=== PATIENT | female | born 1970 | race Caucasian/White ===

== ENCOUNTER → 2017-11-09 15:14 | Outpatient (POV) | payer BC, SELFPAY | PROVIDERS: Family Provider Internal Medicine Adolescent Medicine; Visit Provider Physician Assistant | DX: Z00.00 Encounter for general adult medical examination without abnormal findings (principal) ==

== ENCOUNTER 2019-01-21 19:19 | Emergency (ER) | payer BC, SELFPAY ==
[2019-01-21 19:34] VITALS: BP 148/91; PULSE 82; RESP 16; TEMP 36.6; O2SAT 98; BMI 40.2
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
[2019-01-21 20:11] VITALS: BP 148/91; PULSE 82; RESP 16; TEMP 36.6; O2SAT 98
== END 2019-01-21 20:15 | disposition home or self-care (01) ==
PROVIDERS: Emergency Provider Nurse Practitioner Family; PCP Nurse Practitioner Family
DX: T23.201A Burn of second degree of right hand, unspecified site, initial encounter (principal); Z23 Encounter for immunization; F17.210 Nicotine dependence, cigarettes, uncomplicated; X12.XXXA Contact with other hot fluids, initial encounter; Y92.019 Unspecified place in single-family (private) house as the place of occurrence of the external cause
CPT/HCPCS: 90471; 90715; 99201

== ENCOUNTER → 2019-11-22 13:04 | Outpatient (POV) | payer BC, SELFPAY | PROVIDERS: PCP Nurse Practitioner Family; Visit Provider Dermatology | DX: Z00.00 Encounter for general adult medical examination without abnormal findings (principal) ==

== ENCOUNTER → 2019-12-15 09:07 | Outpatient (CLI) | payer BC, SELFPAY ==
--- NOTE | 2019-12-15 09:12 | MM_ITS ---
PROCEDURE: MM DIG SCREENING MAMM BI W/CAD Digital Breast Tomosynthesis Included CLINICAL INDICATION: SCREENING There is no personal or family history of breast cancer. COMPARISON: [facility] DIGITAL MAMM-SCREEN BILATERAL from 06/04/2010 [facility] DIG MAMM-SCREEN GUNNER from 07/29/2016 TECHNIQUE: Standard CC and MLO images and 3D Tomosynthesis was obtained. R2 CAD reviewed. FINDINGS: The breasts are composed primarily of fat with scattered fibroglandular densities throughout each breast. There is a stable benign-appearing nodular density upper-outer quadrant left breast likely a small fibroadenoma. There is no suspicious lesion and no suspicious microcalcifications. IMPRESSION: Fibrofatty parenchyma with no suspicious lesions seen BI-RAD Category: 2 Benign Finding(s) FOLLOW-UP: 1YR 1 Year Follow-up (A letter has been sent to the patient regarding results of the study.) Dictated by: Dr. Raphael Gorman MD 12/16/2019 16:[address] Raphael Gorman MD in [place] 12/16/2019 16:23
== END ==
PROVIDERS: PCP Nurse Practitioner Family; Visit Provider Obstetrics & Gynecology Gynecology
DX: Z12.31 Encounter for screening mammogram for malignant neoplasm of breast (principal)
CPT/HCPCS: 77063; 77067

== ENCOUNTER → 2020-11-15 15:14 | Outpatient (CLI) | payer BC, SELFPAY ==
--- NOTE | 2020-11-15 15:20 | XR_ITS ---
PROCEDURE: XR KNEE RT 3V CLINICAL INDICATION: RT ANTERIOR KNEE PAIN COMPARISON: No exams were available for comparison FINDINGS: There are hunv-er-xjawzshk osteoarthritic changes at the medial compartment with mild osteoarthritis of the lateral compartment and patellofemoral joint. No acute fracture or dislocation. No lytic or blastic change. Other findings:None. IMPRESSION: Osteoarthritis Dictated by: Ilia Cruz MD 11/15/2020 15:44 Ilia Cruz MD in [place] 11/15/2020 15:44
== END ==
PROVIDERS: PCP Nurse Practitioner Family; Visit Provider Nurse Practitioner Family
DX: M25.561 Pain in right knee (principal)
CPT/HCPCS: 73562

== ENCOUNTER → 2023-01-29 08:48 | Outpatient (CLI) | payer BC, SELFPAY ==
[2023-01-29 09:32] LABS: Basophils % 0.6 % (0.1-2.0); Eosinophils # 0.2 K/mm3 (0.0-0.4); Eosinophils % 3.5 % (0.1-12.0); Hematocrit 49.2 % (37.0-47.0); Hemoglobin 15.9 g/dL (12.2-16.2); Lymphocytes # 1.6 K/mm3 (0.7-4.5); Lymphocytes % 25.1 % (10-50); Mean Corpuscular HGB Conc 32.3 g/dL (31.8-35.4); Mean Corpuscular Hemoglobin 31.8 pg (27.0-31.2); Mean Corpuscular Volume 98.5 fl (81-99); Mean Platelet Volume 12.2 fl (7.4-10.4); Monocytes # 0.5 K/mm3 (0.1-1.0); Monocytes % 7.3 % (1.7-9.3); Neutrophils % 63.6 % (37.0-80.0); Platelet Count 91 K/mm3 (142-424); White Blood Count 6.2 K/mm3 (4.8-10.8)
[2023-01-29 09:45] LABS: Alanine Aminotransferase 47 U/L (12-78); Albumin/Globulin Ratio 1.3 (1.1-1.8); Alkaline Phosphatase 88 U/L (38-126); Anion Gap 15.6 mEq/L (5-15); Aspartate Amino Transferase 45 U/L (14-36); Bilirubin,Total 0.9 mg/dl (0.2-1.3); Blood Urea Nitrogen 11 mg/dl (7-17); Calcium 8.9 mg/dl (8.4-10.2); Carbon Dioxide 27 mmol/L (22.0-30.0); Chloride 99 mmol/L (98-107); Chol/HDL Ratio 3.3 (1-3.5); Cholesterol 216 mg/dl (140-200); Estimated Glomerular Filt Rate 58 ml/min (>60); GFR (African American) 70 ML/MIN (>60); Globulin 3.1 g/dL (1.3-3.2); Glucose 99 mg/dl (74-100); HDL Cholesterol 65 mg/dl (40-60); Potassium 4.6 mmoL/L (3.5-5.1); Sodium 137 mmol/L (136-145); Total Protein,Serum 7.1 g/dl (6.3-8.2); Triglycerides 132 mg/dl (30-150); VLDL Cholesterol 26 mg/dL (0-40)
[2023-01-29 09:56] LABS: Direct LDL Cholesterol 124.07 mg/dL (100-129)
[2023-01-29 10:01] LABS: 25-OH Vitamin D, Total 35.7 ng/mL (30-100)
[2023-01-29 10:10] LABS: Hemoglobin A1C 5.4 % (4.0-6.0)
[2023-01-29 10:14] LABS: Thyroid Stimulating Hormone 0.42 uIU/mL (0.465-4.68)
[2023-01-30 12:30] LABS: FSH 44.1 mIU/mL (.); Insulin Level Total 22.9 uIU/mL (2.6-24.9)
== END ==
PROVIDERS: PCP Internal Medicine Adolescent Medicine; Visit Provider Obstetrics & Gynecology Gynecology
DX: Z00.00 Encounter for general adult medical examination without abnormal findings (principal); N95.1 Menopausal and female climacteric states; R53.83 Other fatigue
CPT/HCPCS: 36415; 80053; 80061; 82306; 83001; 83036; 83525; 84443; 85025

== ENCOUNTER → 2023-02-04 16:00 | Outpatient (CLI) | payer BC, SELFPAY ==
--- NOTE | 2023-02-04 11:23 | MM_ITS ---
PROCEDURE INFORMATION: Exam: MG Bilateral Screening 3D Mammography Exam date and time: 02/04/2023 3:59 PM Age: 52 years old Clinical indication: Screening examination TECHNIQUE: Imaging protocol: Bilateral Screening tomosynthesis and 2D mammography including computer-aided detection (CAD) when performed. COMPARISON: 1. MG MM DIG SCREENING MAMM BI W/CAD 12/15/2019 9:29 AM 2. MG [facility] DIG MAMM-SCREEN GUNNER 07/29/2016 8:56 AM FINDINGS: MAMMOGRAPHY: Breast composition: The breasts are almost entirely fatty. Mass: None. Architectural distortion: None. Calcifications: No suspicious calcifications. Asymmetric density: None. Skin thickening: None. Axillary adenopathy: None. IMPRESSION: No mammographic evidence of malignancy. Annual screening is recommended unless otherwise clinically indicated. ASSESSMENT: BI-RADS Category 1: Negative
== END ==
PROVIDERS: PCP Internal Medicine Adolescent Medicine; Visit Provider Obstetrics & Gynecology Gynecology
DX: Z12.31 Encounter for screening mammogram for malignant neoplasm of breast (principal)
CPT/HCPCS: 77063; 77067

== ENCOUNTER 2024-10-25 09:21 | Emergency (ER) | payer BC, SELFPAY ==
[2024-10-25 09:37] VITALS: BP 176/93; PULSE 82; RESP 18; TEMP 37.2; O2SAT 94; BMI 50.8
[2024-10-25 09:48] LABS: UTC Influenza A Antigen Negative (Negative); UTC Influenza B Antigen Negative (Negative); UTC Strep Screen (Rapid) Negative (Negative)
--- NOTE | 2024-10-25 09:54 | ED_ITS ---
Discharge Plan Disposition Patient Disposition: Home, Self-Care Condition: Good Prescriptions Prescriptions: New azithromycin [Zithromax] 250 mg tablet 250 mg PO UD DOSE PK Qty: 6 0RF Rx Instructions: Take two (2) tablets today, then one (1) tablet days #2 thru #5 benzonatate 100 mg capsule 100 mg PO TIDP PRN (Reason: Cough) Qty: 30 0RF No Action hydrocodone-acetaminophen 1 EACH tablet 1 each PO Q6HP PRN (Reason: Moderate Pain) Qty: 12 0RF Referrals Follow up/Referrals: Jose F Cade MD [Primary Care Provider] - See instructions Activity Restrictions/Add. Instructions Additional Instructions/Restrictions: Drink plenty of fluids. Take tylenol or ibuprofen for pain or fever. Take the medications as directed. Follow up with your regular doctor. GO TO THE ER FOR ANY WORSENING SYMPTOMS Clinical Impressions Clinical Impression: Acute bronchitis, Acute viral syndrome Stand Alone Forms Stand Alone Forms: Work/School Release Instructions Patient Instructions: DI for Acute Bronchitis Print Language Print Language: Chinese Discharge ED Provider: Rony Lovelace [facility] General Stated complaint: cough, sore throat Mode of Arrival: Ambulatory Source of Information: Patient Time Seen by Provider: 10/25/24 09:53 Description of Symptoms (Recalled from Triage Doc. by RN): DRY COUGH X 1WEEK HEENT Symptoms (Recalled from RN notes): Yes Resp Symptoms (Recalled from RN notes): Yes Skin Symptoms (Recalled from RN notes): No MS Symptoms (Recalled from RN notes): No Functional Status (Recalled from RN notes): WNL Related Data Previous Rx's ?Medication ?Instructions ?Recorded hydrocodone 5 mg-acetaminophen 325 1 each PO Q6HP PRN Moderate Pain 01/21/ mg tablet #12 tabs azithromycin 250 mg tablet 250 mg PO UD DOSE PK #6 tabs 10/25/24 (Zithromax) benzonatate 100 mg capsule 100 mg PO TIDP PRN Cough #30 caps 10/25/24 Allergies Allergy/AdvReac Type Severity Reaction Status Date / Time codeine Allergy Verified 05/20/18 12:39 Worker's Comp Is this a Worker's Comp case?: No [facility] Disclaimer: The information contained in this section may have been updated after the patient was seen, as this information can be updated by other users. Social History Smoking Status: Current every day smoker tobacco type: cigarettes packs per day: 1 alcohol intake: never current occupational status: employed Travel in the last 8 weeks: None Have you lived/traveled outside US in past 30 days?: No Contact w/someone who lives/traveled outside US past 30 days?: No Exposure to someone with infectious disease in past 14 days?: No Do you have a fever (greater than 100.4 F or 38 C)?: No Have you tested positive for COVID-19: No Exposed to someone with COVID-19 in past 14 days?: No Do you have a sore throat?: Yes Do you have a cough?: Yes Do you have any weakness?: No Do you have any diarrhea?: No Are you experiencing any unusual bleeding?: No Do you have any muscle aches/pain?: No Do you have any abdominal pain?: No Are you experiencing loss of taste or smell?: No ROS Obtained: Yes All systems reviewed & no additional complaints except as documented Constitutional Constitutional: Reports chills and Reports fever(s) Eyes Eyes: Denies eye discharge ENT Ears, Nose, Mouth, and Throat: Reports as per HPI Cardiovascular Cardiovascular: Denies chest pain Respiratory Respiratory: Denies chest congestion and Reports cough Gastrointestinal Gastrointestingal: Reports nausea; Denies abdominal pain, constipation, cramping, diarrhea or vomiting Musculoskeletal Musculoskeletal: Denies arthralgias Integumentary/Breasts Skin/Breast: Denies rash Neurologic Neurologic: Denies paresthesias Physical Exam General General appearance: alert and in no apparent distress Eye Eye exam: Present normal appearance, PERRL and EOMI ENT ENT exam: Present mucous membranes moist and normal external ear exam Expanded ENT Exam External ear exam: Present normal external inspection TM/Canal exam: Bilateral TM: erythema and bulging Nose exam: Absent sinus tenderness Nasal speculum exam: Bilateral: normal Mouth exam: Present normal external inspection; Absent drooling Teeth exam: Present normal inspection Throat exam: Present tonsillar erythema and tonsillomegaly Neck Neck exam: Present normal inspection, full ROM and trachea midline; Absent tenderness, lymphadenopathy or thyromegaly Chest Chest inspection: Present normal inspection and symmetric chest wall rise; Absent tenderness or rash Respiratory Respiratory exam: Present normal lung sounds bilaterally; Absent respiratory distress, wheezes, stridor or accessory muscle use Cardiovascular Cardiovascular exam: Present regular rate, normal rhythm and normal heart sounds Abdominal Exam Abdominal exam: Present soft; Absent distention, tenderness, guarding, rebound or rigidity Extremities Exam Extremities exam: Present normal inspection, full ROM and normal capillary refill; Absent tenderness or calf tenderness Back Exam Back exam: Present normal inspection and full ROM; Absent tenderness Neurological Exam Neurological exam: Present alert and oriented X3 Psychiatric Psychiatric exam: Present normal affect and normal mood Skin Skin exam: Present warm, dry, intact and normal color Lymphatic Lymphatic Findings: no adenopathy Medical Decision Making Medical Records Medical records reviewed: No I reviewed the patient's medical records. Screening: Per USPSTF and CDC recommendations, given the prevalence of disease in our region, it is our hospital?s policy to screen for HIV and viral Hepatitis for all patients aged 18 and over and those with ongoing risk factors. Guillermo Inquiry Pt receiving controlled substance: No Vital Signs: 10/25/24 09:37 Temperature 99.0 F Temperature Source Oral Pulse Rate [Left Radial] 82 Respiratory Rate 18 Blood Pressure [Left Arm] 176/93 H Blood Pressure Mean [Left Arm] 120 02 Sat by Pulse Oximetry 94 L Lab Data Lab Results 10/25/24 09:41: Influenza Type A Ag Negative, Influenza Type B Ag Negative, Strep Scn Rapid Clinic Negative Orders (Tests/Meds): ORDERS Category Date Time Status Strep Screen Confirmation Stat Micro 10/25/24 09:41 Received Medical Decision Narrative: She refused any additional viral testing and x-rays.
[2024-10-25 10:42] VITALS: BP 176/93; PULSE 82; RESP 18; TEMP 37.2
== END 2024-10-25 10:42 | disposition home or self-care (01) ==
PROVIDERS: Emergency Provider Nurse Practitioner Family; PCP Internal Medicine Adolescent Medicine
DX: J20.9 Acute bronchitis, unspecified (principal); B34.9 Viral infection, unspecified
CPT/HCPCS: 87804; 87880; 99213; G0381

== ENCOUNTER 2025-01-13 07:47 | Outpatient (CLI) | payer BC, SELFPAY ==
--- NOTE | 2025-01-13 07:49 | MM_ITS ---
PROCEDURE INFORMATION: Exam: MG Bilateral Screening 3D Mammography Exam date and time: 01/13/2025 8:29 AM Age: 54 years old Clinical indication: Screening examination TECHNIQUE: Imaging protocol: Bilateral Screening tomosynthesis and 2D mammography including computer-aided detection (CAD) when performed. COMPARISON: 1. MG MM DIG SCREENING MAMM BI W/CAD 02/04/2023 3:59 PM 2. MG MM DIG SCREENING MAMM BI W/CAD 12/15/2019 9:29 AM FINDINGS: MAMMOGRAPHY: Breast composition: The breasts are almost entirely fatty. Mass: No suspicious masses. Architectural distortion: None. Calcifications: No suspicious calcifications. Asymmetric density: None. Skin thickening: None. Axillary adenopathy: None. IMPRESSION: No mammographic evidence of malignancy. Annual screening is recommended unless otherwise clinically indicated. ASSESSMENT: BI-RADS Category 1: Negative.
--- NOTE | 2025-01-13 07:49 | CT_ITS ---
FINAL REPORT CLINICAL HISTORY: current smoker 1.5ppd x40 years FINDINGS: Axial images were obtained from the lung apex to the mid abdomen by computed tomography. Low-dose protocol was utilized. CTDl vol(mGy): 2.90 DLP (mGy-cm): 94.82 FINDINGS: There is no axillary adenopathy. There is no hilar or mediastinal adenopathy. The heart size is normal. There is no pericardial or pleural effusion. Limited images of the upper abdomen are unremarkable. Lung window images demonstrate no suspicious infiltrate or nodule. IMPRESSION: Lung RADS category 1. Recommend 12 month follow-up low-dose chest CT. Reviewed, Interpreted and Dictated by Fletcher Pozo MD Transcribed by Ignacia Costa Authenticated and [facility]
== END 2025-01-13 23:59 | disposition home or self-care (01) ==
LOC: RAD 07:48
PROVIDERS: PCP Internal Medicine Adolescent Medicine; Visit Provider Nurse Practitioner Family
DX: Z12.31 Encounter for screening mammogram for malignant neoplasm of breast (principal); Z87.891 Personal history of nicotine dependence
CPT/HCPCS: 71271; 77063; 77067

== ENCOUNTER 2025-07-17 16:42 | Outpatient (CLI) | payer BC, SELFPAY ==
--- OUTSIDE RECORDS SUMMARY | 2024-12-06 04:00 | XMS_ITS ---
Author Organization [facility] Address [address] [place] [address] Care Team Providers Care Oncology Registrar Name Role Phone Mary Toro Primary Care Provider REASON FOR VISIT Labs Encounters Encounter Location Date Provider Diagnosis [facility] [address] [place], [place] [address] 12/06/2024 Mary Toro Plan Of Treatment No Information Progress Notes * Francia PUENTESDOB:1970 (55 yo F)Acc No.[id number]:12/06/2024 LABS Patient: Francia MARTINEZ Danni Provider: DEMARCUS Castano :1970 A ge:54 Y S ex:Female Date:12/06/2024 Address:[address] [id number] Subjective: * Chief Complaints: * 1 . Labs. * Medical History: Objective: * Vitals: Assessment: Plan: * Treatment: * * Electronic signature of Jessica Toro APRN on 07/17/2025 at 04:44 PM EDT Sign off status: Pending * Provider: DEMARCUS Castano Date: 0 12/06/2024 Generated for Printi ng/Faxing/eTransmitting on: 1 04:44 PM EDT
--- OUTSIDE RECORDS SUMMARY | 2024-12-24 17:30 | XMS_ITS ---
Author Organization [facility] Address [address] [place] [address] Care Team Providers Care Grill Attendant Name Role Phone Mary Toro Primary Care Provider Migration, Provider Unavailable Unavailable Allergies Allergen (clinical drug ingredient) Drug/Non Drug Allergy documented on EMR Reaction Allergy Type Onset Date Status codeine Codeine Unknown Drug Allergy Active [facility] VISIT [facility] Encounter Medications Medication SIG (Take, Route, [...] Active Encounters Encounter Location Date [facility] [address] [place] [address] 12/24/2024 Provider Migration Situational mixed anxiety and [...] :1970 A ge:54 Y S ex:Female Date:12/24/2024 Address:[address] [place] [address] [id number] Pcp:Mary Toro Subjective: * Chief Complaints: * [...] Electronic signature of Pipo howard Migration on 07/17/2025 at 04:45 PM EDT Sign off status: Pending * Provider: Rebeca braswell Migration Date: 0 12/24/2024 Generated for Megha macdonald/Jus/Richarditting on: 1 04:45 PM EDT
--- OUTSIDE RECORDS SUMMARY | 2025-07-05 07:15 | XMS_ITS ---
Author Organization [facility] Address [address] [place] [address] Care Team Providers Care Sap Specialist Name Role Phone Mary Toro Primary Care Provider Jose F Cade Unavailable [phone] REASON FOR VISIT feet swelling, other issues Encounters Encounter Location Date Provider Diagnosis [facility] [address] [place], [place] [address] 07/05/2025 Jose F Cade Plan Of Treatment No Information Progress Notes * Francia PUENTESDOB:1970 (55 yo F)Acc No.[id number]:07/05/2025 Progress Notes Patient: Francia MARTINEZ Provider: Tasha Cade MD :1970 A ge:55 Y S ex:Female Date:07/05/2025 Address:[address] [place], [id number] Pcp:Mary Toro Subjective: * Chief Complaints: * 1 . Feet swelling, other issues. * Medical History: Objective: * Vitals: Assessment: Plan: * Treatment: * * Electronic signature of Derrick Cade MD FAAP on 07/17/2025 at 04:45 PM EDT Sign off status: Pending * Provider: Tasha Cade MD Date: 1 Generated for Megha macdonald/Jus/eTransmitting on: 1 04:45 PM EDT
--- OUTSIDE RECORDS SUMMARY | 2025-07-17 16:45 | XMS_ITS | Patient Health Record ---
Author Organization [facility] STEPHANIE Address [address] [place] [address] Care Team Providers Care Die Cast Patternmaker Name Role Phone Mary Toro Primary Care Provider Jose F Cade Unavailable [phone] Migration, Provider Unavailable Unavailable Allergies Allergen (clinical drug ingredient) Drug/Non Drug Allergy documented on EMR Reaction Allergy Type Onset Date Status codeine Codeine Unknown Drug Allergy Active Results Component Value Reference Range Notes CT Scan : Chest, Lung Cancer Screening Reviewed date:01/17/2025 09:14:22 AM Interpretation: Performing Lab: Notes/Report: CT Scan : Chest, Lung Cancer Screening Reviewed date:01/17/2025 09:14:22 AM Interpretation: Performing Lab: Notes/Report: Mammogram: Screening Reviewed date:01/20/2025 10:23:15 AM Interpretation: Performing Lab: Notes/Report: HEPATITIS PANEL, GENERAL (64 62) Reviewed date:12/09/2024 10:47:25 AM Interpretation: Performing Lab:CB, [facility] [address], [place] AkwlDM[address] Anderson Gonzalez Notes/Report: NON-FASTING; NON-FASTING; NON-FASTING; NON-FASTING; NON-FAST FASTING:YES FASTING: YES HEPATITIS A AB, TOTAL REACTIVE NON-REACTIVE For additional information, please refer to http://Mosa Records.MediaWheel/faq/MJA861 (This link is being provided for informational/ educational purposes only.) HEPATITIS B SURFACE ANTIBODY QL NON-REACTIVE NON-REACTIVE HEPATITIS B SURFACE ANTIGEN NON-REACTIVE NON-REACTIVE For additional information, please refer to http://TripIt/faq/PBE296 (This link is being provided for informational/ educational purposes only.) HEPATITIS B CORE AB TOTAL NON-REACTIVE NON-REACTIVE For additional information, please refer to http://TripIt/faq/JOS216 (This link is being provided for informational/ educational purposes only.) HEPATITIS C ANTIBODY NON-REACTIVE NON-REACTIVE HCV antibody was non-reactive. There is no laboratory evidence of HCV infection. In most cases, no further action is required. However, if recent HCV exposure is suspected, a test for HCV RNA (test code 97003) is suggested. For additional information please refer to http://TripIt/faq/FAQ22v 1 (This link is being provided for informational/ educational purposes only.) LIPID PANEL, STANDARD (7600) Reviewed date:12/09/2024 10:47:26 AM Interpretation: Performing Lab:TIAN, [facility] Cabp7214 [facility] HospitalQixzMK[address] Anderson Gonzalez Notes/Report: NON-FASTING; NON-FASTING; NON-FASTING; NON-FASTING; NON-FAST FASTING:YES FASTING: YES CHOLESTEROL, TOTAL 224 <200 mg/dL HDL CHOLESTEROL 66 > OR = 50 mg/dL TRIGLYCERIDES 114 <150 mg/dL LDL-CHOLESTEROL 136 Reference range: <100 Desirable range <100 mg/dL for primary prevention; <70 mg/dL for patients with CHD or diabetic patients with > or = 2 CHD risk factors. LDL-C is now calculated using the Luís-Aries calculation, which is a validated novel method providing better accuracy than the Friedewald equation in the estimation of LDL-C. Luís OH et al. ELENA. 2013;310(19): 3511-9761 (http://Blue Crow Media/faq/FAQ16 4) CHOL/HDLC RATIO 3.4 <5.0 (calc) NON HDL CHOLESTEROL 158 <130 mg/dL (calc) For patients with diabetes plus 1 major ASCVD risk factor, treating to a non-HDL-C goal of <100 mg/dL (LDL-C of <70 mg/dL) is considered a therapeutic option. COMPREHENSIVE METABOLIC PANE Gloria (99387) Reviewed date:12/09/2024 10:47:26 AM Interpretation: Performing Lab:TIAN [employer] Drss4461 [employer]Logixtel [address], [facility] HospitalKpjdFK[address] Anderson Gonzalez Notes/Report: NON-FASTING; NON-FASTING; NON-FASTING; NON-FASTING; NON-FAST FASTING:YES FASTING: YES GLUCOSE 102 65-99 mg/dL Fasting reference interval For someone without known diabetes, a glucose value between 100 and 125 mg/dL is consistent with prediabetes and should be confirmed with a follow-up test. UREA NITROGEN (BUN) 9 7-25 mg/dL CREATININE 1.00 0.50-1.03 mg/dL EGFR 66 > OR = 60 mL/min/1.73m2 BUN/CREATININE RATIO SEE NOTE: 6-22 (calc) Not Reported: BUN and Creatinine are within reference range. SODIUM 138 135-146 mmol/L POTASSIUM 4.5 3.5-5.3 mmol/L CHLORIDE 100 98-110 mmol/L CARBON DIOXIDE 28 20-32 mmol/L CALCIUM 9.1 8.6-10.4 mg/dL PROTEIN, TOTAL 7.6 6.1-8.1 g/dL ALBUMIN 4.0 3.6-5.1 g/dL GLOBULIN 3.6 1.9-3.7 g/dL (calc) ALBUMIN/GLOBULIN RATIO 1.1 1.0-2.5 (calc) BILIRUBIN, TOTAL 0.9 0.2-1.2 mg/dL ALKALINE PHOSPHATASE 81 37-153 U/L AST 56 10-35 U/L ALT 62 6-29 U/L MAGNESIUM (622) Reviewed date:12/09/2024 10:47:26 AM Interpretation: Performing Lab:TIAN [facility] Wabq4454 [address], [employer] EvcwNI[address] Anderson Gonzalez Notes/Report: NON-FASTING; NON-FASTING; NON-FASTING; NON-FASTING; NON-FAST FASTING:YES FASTING: YES MAGNESIUM 2.2 1.5-2.5 mg/dL CREATINE KINASE, TOTAL (374) Reviewed date:12/09/2024 10:47:26 AM Interpretation: Performing Lab:TIAN Abiquoe[address], [place] DcbrSG[address] Anderson Gonzalez Notes/Report: NON-FASTING; NON-FASTING; NON-FASTING; NON-FASTING; NON-FAST FASTING:YES FASTING: YES CREATINE KINASE, TOTAL 77 21-240 U/L CBC (INCLUDES DIFF/PLT) (639 9) Reviewed date:12/09/2024 10:47:26 AM Interpretation: Performing Lab:TIAN [facility] Tdpa7446 [address]t.IO, AGLOGICZlccKZ[address] Anderson Gonzalez Notes/Report: NON-FASTING; NON-FASTING; NON-FASTING; NON-FASTING; NON-FAST FASTING:YES FASTING: YES NON-FASTING; NON-FASTING; NON-FASTING; NON-FASTING; NON-FAST FASTING:YES FASTING: YES WHITE BLOOD CELL COUNT 5.9 3.8-10.8 Thousand/uL RED BLOOD CELL COUNT 4.98 3.80-5.10 Million/uL HEMOGLOBIN 16.8 11.7-15.5 g/dL HEMATOCRIT 51.0 35.0-45.0 % MCV 102.4 80.0-100.0 fL MCH 33.7 27.0-33.0 pg MCHC 32.9 32.0-36.0 g/dL For adults, a slight decrease in the calculated MCHC value (in the range of 30 to 32 g/dL) is most likely not clinically significant; however, it should be interpreted with caution in correlation with other red cell parameters and the patient's clinical condition. RDW 13.6 11.0-15.0 % ABSOLUTE NEUTROPHILS 3705 5289-2368 cells/uL ABSOLUTE LYMPHOCYTES 0576 755-7646 cells/uL ABSOLUTE MONOCYTES 525 200-950 cells/uL ABSOLUTE EOSINOPHILS 201 15-500 cells/uL ABSOLUTE BASOPHILS 59 0-200 cells/uL NEUTROPHILS 62.8 LYMPHOCYTES 23.9 MONOCYTES 8.9 EOSINOPHILS 3.4 BASOPHILS 1.0 PLATELET COUNT TNP TEST(S) NOT PERFORMED: PLATELET COUNT Unable to report due to significant platelet clumping. PLATELET ESTIMATION ADEQUATE Platelet s clumped, appear adequate. HEMOGLOBIN A1c (496) Reviewed date:12/09/2024 10:47:26 AM Interpretation: Performing Lab:TIAN [facility] Cagj[address]659 [address], [place] NihdJX[address] Anderson Gonzalez Notes/Report: NON-FASTING; NON-FASTING; NON-FASTING; NON-FASTING; NON-FAST FASTING:YES FASTING: YES HEMOGLOBIN A1c 5.8 <5.7 % of total Hgb For someone without known diabetes, a hemoglobin [...] A1c for diagnosis of diabetes for children. TSH W/REFLEX TO FT4 (87240) Reviewed date:12/09/2024 10:47:26 AM Interpretation: Performing Lab:TIAN [facility]RelateIQe1355 [employer], [facility] HospitalJaaiNS[address] Anderson Gonzalez Notes/Report: NON-FASTING; NON-FASTING; NON-FASTING; NON-FASTING; NON-FAST FASTING:YES FASTING: YES TSH W/REFLEX TO FT4 2.90 0.40-4.50 mIU/L VITAMIN D,25-OH,TOTAL,IA (17 306) Reviewed date:12/09/2024 10:47:26 AM Interpretation: Performing Lab:TIAN [facility]RelateIQe1355 [facility], [facility] HospitalDdhrNK[address] Anderson Gonzalez Notes/Report: NON-FASTING; NON-FASTING; NON-FASTING; NON-FASTING; NON-FAST FASTING:YES FASTING: YES VITAMIN D,25-OH,TOTAL,IA 26 30-100 ng/mL Vitamin D Status 25-OH Vitamin D: Deficiency: <20 ng/mL Insufficiency: 20 - 29 ng/mL Optimal: > or = 30 ng/mL For 25-OH Vitamin D testing on patients on D2-supplementation and patients for whom quantitation of D2 and D3 fractions is required, the QuestAssureD(TM) 25-OH VIT D, (D2,D3), LC/MS/MS is recommended: order code 30074 (patients >2yrs). See Note 1 Note 1 For additional information, please refer to http://education.Offerpop/faq/ZEQ174 (This link is being provided for informational/ educational purposes only.) TEST AUTHORIZATION Reviewed date:12/08/2024 08:00:55 AM Interpretation: Performing Lab:CB, [facility] Yans8158 [facility] Gianni MontgomeryJzcdBJ[address] Anderson Ozzy Gonzalez Notes/Report: NON-FASTING; NON-FASTING; NON-FASTING; NON-FASTING; NON-FAST FASTING:YES FASTING: YES TEST NAME: HEPATITIS PANEL, GENERAL TEST CODE: 6462SB CLIENT CONTACT: KEREN EATON IOP REPORT ALWAYS MESSAGE SIGNATURE The laboratory testing on this patient was verbally requested or confirmed by the ordering physician or his or her authorized apprenticeship representative after contact with an employee of [employer]. Federal regulations require that we maintain on file written authorization for all laboratory testing. Accordingly we are asking that the ordering physician or his or her authorized apprenticeship representative sign a copy of this report and promptly return it to the client support representative. Signature: COMMENT Please fax this signed form to [phone]. Please do not attempt to return this document by other methods. Documents will not be viewed by a apprenticeship representative. Please do not use this fax number for other service requests. Reason For Referral Reason Mamm, LDCT chest Diagnosis 1 Routine medical exam (Z00.00) Referral Organization [facility] Referring Provider First Name Mary Referring Provider Last Name Muna Referring Provider Speciality Critical access hospital Referred Organization [facility] Referred Address [address] [place] [address], Referred Provider Specialty Diagnostic R adiology General Notes Rosa Malcolm 2024 09:44:59 AM >Faxed to [facility] to schedule with [facility] Referral Priority Routine Referral Appointment Date 12/23/2024 Medications Medication SIG (Take, Route, Fr equency, [...] Immunizations Vaccine Route Administration Date Status Comme estefania Adacel (Tdap) IM Intramuscular 11/05/2010 Administered Flublok IM Intramuscular 06/21/2020 Administered FLUCELVAX IM Intramuscular 07/17/2025 Administered Social History [...] Problem Status W/U Status Risk Notes Problem Tobacco use (160254842) Tobacco use (Z72.0) Active confirmed Problem Mixed anxiety and depressive disorder (878268438) Depression with anxiety (F41.8) Active confirmed Problem Body mass index 40+ - severely obese (060863367) BMI 45.0-49.9, adult (Z68.42) Active confirmed Problem Gastroesophageal reflux disease (428656004) GERD without esophagitis (K21.9) Active confirmed Problem Body mass index 40+ - morbidly obese (999618394) BMI 40.0-44.9, adult (Z68.41) Active confirmed Problem Adjustment disorder with mixed emotional features (47592333) Situational mixed anxiety and depressive disorder (F43.23) Active confirmed Problem Thrombocytopenia (622883574) Thrombocytopenia (D69.6) Active confirmed Problem Insomnia disorder related to another mental disorder (79667489) Psychophysiological insomnia (F51.04) Active confirmed Problem Reactive depression (situational) (09303016) Situational depression (F43.21) Active confirmed Problem Hyperlipidaemia (25789149) Hyperlipidemia, unspecified hyperlipidemia type (E78.5) Active confirmed Problem History of thrombocytopenia (75037871849166) History of thrombocytopenia (Z86.2) Active confirmed Problem Moderate major depression, single episode (13704681) Current moderate episode of major depressive disorder without prior episode (F32.1) Active confirmed Vital Signs Heart Rate 92 /min 07/17/2025 Temperature 98.0 degrees Fahrenheit 07/17/2025 Blood pressure diastolic 84 mm Hg 07/17/2025 Oximetry 97 12/05/2024 Height 62.5 in 07/17/2025 Blood pressure systolic 156 mm Hg 07/17/2025 Weight 299 lbs 07/17/2025 BMI 53.81 kg/m2 07/17/2025 Encounters Encounter Location Date Provider Diagnosis [facility] [address] [facility] [address] [place], [place] [address] 12/06/2024 Mary Toro [facility] [address] [facility] [address] [place], [place] [address] 12/24/2024 Provider Migration Situational mixed anxiety and depressive disorder F43.23 and Tobacco use Z72.0 [facility] [place] [address] [place], [place] [address] 07/17/2025 Jose F Cade Prediabetes R73.03 ; Weight gain R63.5 ; Shortness of breath R06.02 ; Right leg pain M79.604 ; Encounter for immunization Z23 and GERD without esophagitis K21.9 [facility] [address] [facility] [address] [place], [place] [address] 12/05/2024 Mary Muna Routine medical exam Z00.00 ; Visit for screening mammogram Z12.31 ; Personal history of tobacco use Z87.891 ; Colon cancer screening Z12.11 ; Murmur R01.1 ; Situational mixed anxiety and depressive disorder F43.23 ; Tobacco use Z72.0 ; BMI 45.0-49.9, adult Z68.42 ; Weight loss counseling, encounter for Z71.3 ; Myalgia M79.10 and SOB (shortness of breath) R06.02 [facility] [address] [facility] [address] [place], [place] [address] 12/08/2024 Mary Toro Assessments Encounter Date Diagnosis (ICD Code) Assessment Notes Treatment Notes Treatment Clinical Notes Section Notes 12/05/2024 Routine medical exam (ICD-10 - Z00.00) 12/05/2024 Visit for screening mammogram (ICD-10 - Z12.31) 07/17/2025 Weight gain (ICD-10 - R63.5) 07/17/2025 Prediabetes (ICD-10 - R73.03) 07/17/2025 Shortness of breath (ICD-10 - R06.02) 12/05/2024 Personal history of tobacco use (ICD-10 - Z87.891) 12/05/2024 Colon cancer screening (ICD-10 - Z12.11) 07/17/2025 Right leg pain (ICD-10 - M79.604) 07/17/2025 Encounter for immunization (ICD-10 - Z23) 12/05/2024 Murmur (ICD-10 - R01.1) consider echo, cost may be a factor 12/05/2024 Situational mixed anxiety and depressive disorder (ICD-10 - F43.23) 07/17/2025 GERD without esophagitis (ICD-10 - K21.9) 12/24/2024 Situational mixed anxiety and depressive disorder (ICD-10 - F43.23) 12/24/2024 Tobacco use (ICD-10 - Z72.0) 12/05/2024 Tobacco use (ICD-10 - Z72.0) chantix trial as noted, possible s/e and return precautions reviewed 12/05/2024 BMI 45.0-49.9, adult (ICD-10 - Z68.42) Reviewed indication for medication and that dietary changes as well as exercise are recommended as well. Small, frequent meals recommended. Possible side effects and return precautions reviewed. Goal is 4% weight loss over the first 4 months.. _update labs first. 12/05/2024 Weight loss counseling, encounter for (ICD-10 - Z71.3) 12/05/2024 Myalgia (ICD-10 - M79.10) 12/05/2024 SOB (shortness of breath) (ICD-10 - R06.02) labs as noted, consider spirometry during FU Plan Of Treatment Pending Test Test Name Order Date X ray : Tib/Fib, Right 07/17/2025 H-URINE CULTURE 08/04/2011 C-LIPASE 08/26/2017 C-CBC 08/26/2017 C-CMP 11/15/2020 C-CMP 08/26/2017 C-LIPID PANEL 11/15/2020 C-AMYLASE 08/26/2017 C-URINE CULTURE 02/01/2015 X ray : Chest PA and Lateral 07/17/2025 COMPREHENSIVE METABOLIC PANEL (12075) MAGNESIUM (622) 07/17/2025 CBC (INCLUDES DIFF/PLT) (6399) HEMOGLOBIN A1c (496) 07/17/2025 B TYPE NATRIURETIC PEPTIDE (BNP) (49485) 07/17/2025 TESTOSTERONE, [place], [place] ([id number]) 2024 Insurance Providers Payer Name Payer Address Payer Phone Subscriber Number Group Number Insured Name Patient Relationship to Insured Coverage Start Date [facility]age End Date [facility] [address] [place] [address] [id number] Francia Mcdonald Self - patient is the insured Medical (General) History Medical History History ICD Code anxiety Chronic thrombocytopenia, seen by hemato logy 2013 Obesity Tobacco use Surgical History Surgery Date(Month/Year) x 2 Hospitalization History Reason Date(Month/Year) [facility]- Child [address] [facility] Child 1992
--- NOTE | 2025-07-17 16:46 | XR_ITS ---
PROCEDURE INFORMATION: Exam: XR Right Tibia and Fibula Exam date and time: 07/17/2025 4:49 PM Age: 55 years old Clinical indication: Injury or trauma; Fall; Blunt trauma; Lower leg; Right; Additional info: Fall, RT leg pain TECHNIQUE: Imaging protocol: Radiologic exam of the right tibia and fibula. Views: 2 views. COMPARISON: CR XR KNEE RT 3V 11/15/2020 3:21 PM FINDINGS: Bones/joints: There is an acute vertical oblique undisplaced fracture involving the distal fibular diaphysis. Otherwise, there is no evidence of acute fracture or dislocation. Moderate osteoarthritic degenerative changes are present particularly involving the medial femorotibial joint space where there is [id number] joint space narrowing, mild subchondral sclerosis and marginal osteophytes. Marginal osteophytes also involve the lateral femorotibial and patellofemoral joint space without significant narrowing. Mild calcaneal spurring involves the insertion of the Achilles tendon upon the calcaneus. Soft tissues: There is mild associated perifractural edema.No subcutaneous emphysema or radiopaque foreign bodies. IMPRESSION: Acute nondisplaced vertical oblique fracture involving the distal fibular diaphysis.
--- OUTSIDE RECORDS SUMMARY | 2025-07-17 16:46 | XMS_ITS | Data Portability ---
Author Organization [facility] [employer] [employer]ine ADMIN Address [address] [place] [id number] Care Team Providers Care Film Printer Name Role Phone [facility] Primary Care Provider DAVON MONCADA Primary Care Provider Assessment No assessment recorded. Plan of Treatment Reminders Order Date Submit Date Provider Last Modified By Organization Details Last Modified Time Details Appointments None recorded. Lab vitamin D, 25-hydroxy, total, serum 2023 024 [email or web address] [facility], [address], [address], [place], [address], 4 10:58:58 vitamin A (retinol), serum 2023 024 [email or web address] [facility], [address], [address], [place], [address], 4 10:58:58 vitamin E, serum 2023 024 [email or web address] [facility], [address], [address], [place], [address], 4 10:58:58 PTH (parathyroi d hormone), intact, serum or plasma 2023 024 [facility], [address], [address], [place], [address], 4 10:58:58 CBC w/ auto diff 2023 024 [email or web address] [facility], [address], [address], [place], [address], 4 10:58:58 CMP, serum or plasma 2023 024 [email or web address] [facility], [address], [address], [place], [address], 4 10:58:59 HbA1c (hemoglobin A1c), blood 2023 024 [email or web address] [facility], [address], [address], [place], [address], 4 10:58:59 iron + TIBC + ferritin, serum 2023 024 [facility], [address], [address], [place], [address], 4 10:58:59 lipid panel, serum 2023 024 [email or web address] [facility], [address], [address], [place], [address], 4 10:58:59 TSH + free T4, serum 2023 024 [email or web address] [facility], [address], [address], [place], [address], 4 10:58:59 folate, serum 2023 024 [facility], [address], [address], [place], [address], 4 10:58:59 methylmalon ate, QN, serum or plasma 2023 024 [email or web address] [facility], [address], [address], [place], [address], 4 10:59:00 thiamine, QN, blood 2023 024 [email or web address] [facility], [address], [address], [place], [address], 4 10:59:00 Referral None recorded. Procedures None recorded. Surgeries esophagogas troduodenos copy (SURG) 2023 024 [email or web address] Davon Bales MD, [address], [address], [place], [address], 5 10:09:14 Imaging XR, chest, 2 view [address] (Centralized Scheduling), [address] , [place], [address], 4 12:37:47 electrocard iogram, routine ECG, 12 leads min [address] (Registration ), [address] , [place], [address], 4 12:37:47 Medication Orders None recorded. Patient Targets Encounter Date Encounter Id Patient Goals Patient Target Last Modified By Organization Details Last Modified Time 06/02/2024 [id number] 1. Eat 3 meals a day 2. Download [employer] and start keeping food records 3. Review manual for meal and snack ideas 4. Look for food triggers and replace with healthy snacks 5. Wean off soft drinks and replace with water 6. Physical activity 3 times a week [email or web address] Not available 06/02/2024 13:10:55 Patient InstructionsNo instructions recorded. Reason for Referral None Reported. Results Created Date Observation Date Name Description Value Unit Range Abnormal Flag Note LastModifiedBy Organization Detail LastModifiedTime 06/02/20 24 06/03/2024 FE+TI BC+FE R iron bind.cap.(TI BC) 326 ug/dL 250-45 0 normal Not Available [facility] ([facility]) [address] [place], [address], 06/18/2024 12:36:18 06/02/2006/03/2024 FE+TI BC+FE R UIBC 238 ug/dL 131-42 5 normal Not Available [facility] ([facility]) [address] [place], [address], 06/18/2024 12:36:18 06/02/2006/03/2024 FE+TI BC+FE R iron 88 ug/dL 27-159 normal Not Available [facility] ([facility]) [address] [place], [address], 06/18/2024 12:36:18 06/02/20 24 06/03/2024 FE+TI BC+FE R iron saturation 27 % 15-55 normal Not Available [facility] ([facility]) [address] [place], [address], 06/18/2024 12:36:18 06/02/2006/03/2024 FE+TI BC+FE R ferritin 497 NG/mL 15-150 above high normal Not Available [facility] ([facility]) [address] [place], [address], 06/18/2024 12:36:18 06/02/2006/03/2024 TSH+F REE T4 TSH 1.920 uIU/m L 0.450- 4.500 normal Not Available [facility] ([facility]) [address] [place], [address], 06/18/2024 12:36:18 06/02/2006/03/2024 TSH+F REE T4 T4,free(dire ct) 1.16 NG/dL 0.82-1 .77 normal Not Available [facility] ([facility]) [address] [place], [address], 06/18/2024 12:36:18 06/02/20 24 06/03/2024 CBC WITH DIFFE RENTI AL/PL ATELE T WBC 6.9 x10e3 /uL 3.4-10 .8 normal Not Available [facility] ([facility]) [address] [place], [address], 06/18/2024 12:36:19 06/02/2006/03/2024 CBC WITH DIFFE RENTI AL/PL ATELE T RBC 4.80 x10e6 /uL 3.77-5 .28 normal Not Available [facility] ([facility]) [address] [place], [address], 06/18/2024 12:36:19 06/02/2006/03/2024 CBC WITH DIFFE RENTI AL/PL ATELE T hemoglobin 16.4 g/dL 11.1-1 5.9 above high normal Not Available [facility] ([facility]) [address] [place], [address], 06/18/2024 12:36:19 06/02/2006/03/2024 CBC WITH DIFFE RENTI AL/PL ATELE T hematocrit 49.3 % 34.0-4 6.6 above high normal Not Available [facility] ([facility]) [address] [place], [address], 06/18/2024 12:36:19 06/02/2006/03/2024 CBC WITH DIFFE RENTI AL/PL ATELE T MCV 103 fL 79-97 above high normal Not Available [facility] ([facility]) [address] [place], [address], 06/18/2024 12:36:19 06/02/2006/03/2024 CBC WITH DIFFE RENTI AL/PL ATELE T MCH 34.2 pg 26.6-3 3.0 above high normal Not Available [facility] ([facility]) [address] [place], [address], 06/18/2024 12:36:19 06/02/20 24 06/03/2024 CBC WITH DIFFE RENTI AL/PL ATELE T MCHC 33.3 g/dL 31.5-3 5.7 normal Not Available [facility] ([facility]) [address] [place], [address], 06/18/2024 12:36:19 06/02/20 24 06/03/2024 CBC WITH DIFFE RENTI AL/PL ATELE T RDW 12.6 % 11.7-1 5.4 Not Available [facility] ([facility]) [address] [place], [address], 06/18/2024 12:36:19 06/02/20 24 06/03/2024 CBC WITH DIFFE RENTI AL/PL ATELE T platelets TNP x10e3 /uL Unabl e to perfo rm an accur ate plate let count due to aggre gatio n of the plate lets. Not Available [facility] ([facility]) [address] [place], [address], 06/18/2024 12:36:19 06/02/20 24 06/03/2024 CBC WITH DIFFE RENTI AL/PL ATELE T neutrophils 64 % not estab. normal Not Available [facility] ([facility]) [address] [place], [address], 06/18/2024 12:36:19 06/02/20 24 06/03/2024 CBC WITH DIFFE RENTI AL/PL ATELE T lymphs 24 % not estab. normal Not Available [facility] ([facility]) [address] [place], [address], 06/18/2024 12:36:19 06/02/20 24 06/03/2024 CBC WITH DIFFE RENTI AL/PL ATELE T monocytes 8 % not estab. normal Not Available [facility] ([facility]) [address] [facility] [place], [address], 06/18/2024 12:36:19 06/02/20 24 06/03/2024 CBC WITH DIFFE RENTI AL/PL ATELE T eos 3 % not estab. normal Not Available [facility] ([facility]) [address] [facility], [place], [address], 06/18/2024 12:36:19 06/02/20 24 06/03/2024 CBC WITH DIFFE RENTI AL/PL ATELE T basos 1 % not estab. normal Not Available [facility] ([facility]) [address] [place], [address], 06/18/2024 12:36:19 06/02/20 24 06/03/2024 CBC WITH DIFFE RENTI AL/PL ATELE T immature cells RESERVOIR ENGINEERING MANAGER Not Available [facility] ([facility]) [address] [place], [address], 06/18/2024 12:36:19 06/02/20 24 06/03/2024 CBC WITH DIFFE RENTI AL/PL ATELE T neutrophils (absolute) 4.4 x10e3 /uL 1.4-7. 0 normal Not Available [facility] ([facility]) [address] [place], [address], 06/18/2024 12:36:19 06/02/20 24 06/03/2024 CBC WITH DIFFE RENTI AL/PL ATELE T lymphs (absolute) 1.7 x10e3 /uL 0.7-3. 1 normal Not Available [facility] ([facility]) [address] [place], [address], 06/18/2024 12:36:19 06/02/20 24 06/03/2024 CBC WITH DIFFE RENTI AL/PL ATELE T monocytes(ab solute) 0.5 x10e3 /uL 0.1-0. 9 normal Not Available [facility] ([facility]) [address] [place], [address], 06/18/2024 12:36:19 06/02/20 24 06/03/2024 CBC WITH DIFFE RENTI AL/PL ATELE T eos (absolute) 0.2 x10e3 /uL 0.0-0. 4 normal Not Available [facility] ([facility]) [address] [facility], [place], [address], 06/18/2024 12:36:19 06/02/20 24 06/03/2024 CBC WITH DIFFE RENTI AL/PL ATELE T baso (absolute) 0.1 x10e3 /uL 0.0-0. 2 normal Not Available [facility] ([facility]) [address] [facility], [place], [address], 06/18/2024 12:36:19 06/02/20 24 06/03/2024 CBC WITH DIFFE RENTI AL/PL ATELE T immature granulocytes 0 % not estab. Not Available [facility] ([facility]) [address] [facility], [place], [address], 06/18/2024 12:36:19 06/02/20 24 06/03/2024 CBC WITH DIFFE RENTI AL/PL ATELE T immature grans (abs) 0.0 x10e3 /uL 0.0-0. 1 Not Available [facility] ([facility]) [address] [facility], [place], [address], 06/18/2024 12:36:19 06/02/20 24 06/03/2024 CBC WITH DIFFE RENTI AL/PL ATELE T NRBC RESERVOIR ENGINEERING MANAGER Not Available [facility] ([facility]) [address] [facility], [place], [address], 06/18/2024 12:36:19 06/02/20 24 06/03/2024 CBC WITH DIFFE RENTI AL/PL ATELE T hematology comments: NOTE: Verif ied by felix rivera natio n. Not Available [facility] ([facility]) [address] [place], [address], 06/18/2024 12:36:19 06/02/20 24 06/03/2024 COMP. METAB OLIC PANEL (14) glucose 96 mg/dL 70-99 normal Not Available [facility] ([facility]) [address] [place], [address], 06/18/2024 12:36:19 06/02/20 24 06/03/2024 COMP. METAB OLIC PANEL (14) BUN 6 mg/dL 6-24 normal Not Available [facility] ([facility]) [address] [place], [address], 06/18/2024 12:36:19 06/02/20 24 06/03/2024 COMP. METAB OLIC PANEL (14) creatinine 0.83 mg/dL 0.57-1 .00 normal Not Available [facility] ([facility]) [address] [place], [address], 06/18/2024 12:36:19 06/02/20 24 06/03/2024 COMP. METAB OLIC PANEL (14) eGFR 83 mL/mi n/1.7 3 >59 normal Not Available [facility] ([facility]) [address] [place], [address], 06/18/2024 12:36:19 06/02/20 24 06/03/2024 COMP. METAB OLIC PANEL (14) BUN/creatini ne ratio 7 9-23 below low normal Not Available [facility] ([facility]) [address] [place], [address], 06/18/2024 12:36:19 06/02/20 24 06/03/2024 COMP. METAB OLIC PANEL (14) sodium 138 mmol/ L 134-14 4 normal Not Available [facility] ([facility]) [address] [place], [address], 06/18/2024 12:36:19 06/02/20 24 06/03/2024 COMP. METAB OLIC PANEL (14) potassium 4.8 mmol/ L 3.5-5. 2 normal Not Available [facility] ([facility]) [address] [facility], [place], [address], 06/18/2024 12:36:19 06/02/20 24 06/03/2024 COMP. METAB OLIC PANEL (14) chloride 99 mmol/ L 96-106 normal Not Available [facility] ([facility]) [address] [facility], [place], [address], 06/18/2024 12:36:19 06/02/20 24 06/03/2024 COMP. METAB OLIC PANEL (14) carbon dioxide, total 24 mmol/ L 20-29 normal Not Available [facility] ([facility]) [address] [place], [address], 06/18/2024 12:36:19 06/02/20 24 06/03/2024 COMP. METAB OLIC PANEL (14) calcium 9.6 mg/dL 8.7-10 .2 normal Not Available [facility] ([facility]) [address] [facility], [place], [address], 06/18/2024 12:36:19 06/02/20 24 06/03/2024 COMP. METAB OLIC PANEL (14) protein, total 7.8 g/dL 6.0-8. 5 normal Not Available [facility] ([facility]) [address] [place], [address], 06/18/2024 12:36:19 06/02/20 24 06/03/2024 COMP. METAB OLIC PANEL (14) albumin 4.2 g/dL 3.8-4. 9 normal Not Available [facility] ([facility]) [address] [place], [address], 06/18/2024 12:36:19 06/02/20 24 06/03/2024 COMP. METAB OLIC PANEL (14) globulin, total 3.6 g/dL 1.5-4. 5 Not Available [facility] ([facility]) [address] [place], [address], 06/18/2024 12:36:19 06/02/20 24 06/03/2024 COMP. METAB OLIC PANEL (14) bilirubin, total 0.6 mg/dL 0.0-1. 2 normal Not Available [facility] ([facility]) [address] [place], [address], 06/18/2024 12:36:19 06/02/20 24 06/03/2024 COMP. METAB OLIC PANEL (14) alkaline phosphatase 90 IU/L 44-121 normal Not Available [facility] ([facility]) [address] [place], [address], 06/18/2024 12:36:19 06/02/20 24 06/03/2024 COMP. METAB OLIC PANEL (14) AST (SGOT) 83 IU/L 0-40 above high normal Not Available [facility] ([facility]) [address] [place], [address], 06/18/2024 12:36:19 06/02/20 24 06/03/2024 COMP. METAB OLIC PANEL (14) ALT (SGPT) 61 IU/L 0-32 above high normal Not Available [facility] ([facility]) [address] [place], [address], 06/18/2024 12:36:19 06/02/20 24 06/03/2024 LIPID PANEL cholesterol, total 247 mg/dL 100-19 9 above high normal Not Available [facility] ([facility]) [address] [place], [address], 06/18/2024 12:36:20 06/02/20 24 06/03/2024 LIPID PANEL triglyceride s 103 mg/dL 0-149 normal Not Available [facility] ([facility]) [address] [place], [address], 06/18/2024 12:36:20 06/02/20 24 06/03/2024 LIPID PANEL HDL cholesterol 67 mg/dL >39 normal Not Available [facility] ([facility]) [address] [place], [address], 06/18/2024 12:36:20 06/02/20 24 06/03/2024 LIPID PANEL VLDL cholesterol alon 18 mg/dL 5-40 Not Available [facility] ([facility]) [address] [place], [address], 06/18/2024 12:36:20 06/02/20 24 06/03/2024 LIPID PANEL LDL chol calc ([facility]) 162 mg/dL 0-99 above high normal Not Available [facility] ([facility]) [address] [place], [address], 06/18/2024 12:36:20 06/02/20 24 06/03/2024 LIPID PANEL LDL calc comment: RESERVOIR ENGINEERING MANAGER Not Available [facility] ([facility]) [address] [facility], [place], [address], 06/18/2024 12:36:20 06/02/20 24 06/12/2024 VITAM IN E vitamin E(gamma tocopherol) 1.4 mg/L 0.5-5. 5 Refer ence inter vals for alpha and gamma -toco phero l deter mined from [facility] Nutri tion Exami natio n Surve y, 2004- 2005. Indiv idual s with alpha -toco phero l level s less than 5.0 mg/L are consi dered vitam in E defic ient. Not Available [facility] ([facility]) [address] [place], [address], 06/18/2024 12:36:20 06/02/20 24 06/18/2024 VITAM IN E vitamin E(alpha tocopherol) 11.4 mg/L 7.0-25 .1 Not Available [facility] ([facility]) [address] [facility], [place], [address], 06/18/2024 12:36:20 06/02/20 24 06/03/2024 HEMOG LOBIN A1C hemoglobin A1C 6.1 % 4.8-5. 6 above high normal Predi abete s: 5.7 - 6.4 Diabe rajan: >6.4 Glyce robyn contr ol for adult s with diabe rajan: <7.0 Not Available [facility] ([facility]) [address] [facility], [place], [address], 06/18/2024 12:36:21 06/02/20 24 06/03/2024 FOLAT E (FOLI C ACID) , SERUM folate (folic acid), serum 2.2 NG/mL >3.0 below low normal A serum folat e fatemeh ntrat ion of less than 3.1 ng/mL is consi dered to repre sent clini alon defic iency . Not Available [facility] ([facility]) [address] [facility], [place], [address], 06/18/2024 12:36:21 06/02/20 24 06/12/2024 VITAM IN A, SERUM vitamin A 21.4 ug/dL 20.1-6 2.0 Refer ence inter vals for vitam in A deter mined from [facility] inter nal studi es. Indiv idual s with vitam in A less than 20 ug/dL are consi dered vitam in A defic ient and those with serum fatemeh ntrat ions less than 10 ug/dL are consi dered sever greyson defic ient. This test was bharath miller and its perfo rmanc e edy cteri stics deter mined by [facility]. It has not been clear ed or appro kishor by the Food and Drug Admin istra tion. Not Available [facility] ([facility]) [address] [facility], [place], [address], 06/18/2024 12:36:21 06/02/20 24 06/03/2024 VITAM IN D, 25-HY DROXY vitamin D, 25-hydroxy 27.7 NG/mL 30.0-1 00.0 below low normal Vitam in D defic iency has been defin ed by the Insti tute of Medic ine and an Endoc rine Socie ty pract ice guide line as a level of serum 25-OH vitam in D less than 20 ng/mL (1,2) . The Endoc rine Socie ty went on to furth er defin e vitam in D insuf ficie ncy as a level betwe en 21 and 29 ng/mL (2). 1. IOM (Inst itute of Medic ine). 2010. Dieta ry refer ence intak es for calci um and D. Dianne arceo [place]: The [facility] . 2. Chayo jo MF, Jorge leyva [place], Aurea off-F errar i HERNANDEZ, et al. Evalu ation , treat ment, and preve ntion of vitam in D defic iency : an Endoc rine Socie ty clini alon pract ice guide line. JCEM. 2010; 96(7) :1911 -30. Not Available [facility] ([facility]) [address] [facility], [place], [address], 06/18/2024 12:36:22 06/02/20 24 06/06/2024 VITAM IN B1 (THIA MINE) , BLOOD vit. B1, whole blood 107.0 nmol/ L 66.5-2 00.0 Not Available [facility] ([place] [facility]) [address] [facility], [place], [address], 06/18/2024 12:36:22 06/02/20 24 06/07/2024 METHY LMALO ROBERTA ACID, SERUM methylmaloni c acid, serum 223 nmol/ L 0-378 Not Available [facility] ([facility]) [address] [facility], [place], [address], 06/18/2024 12:36:23 06/02/20 24 06/03/2024 PTH, INTAC T PTH, intact 43 pg/mL 15-65 normal Not Available [facility] ([facility]) [address], [place], [address], 06/18/2024 12:36:23 Result Notes None recorded. Problems Name Problem SNOMED Code Status Onset Date Resolution Date Notes Provider Name and Address Organization Details Recorded Time Anxiety 31321285 Active 2023 Drew Francis DNP, PIPING ENGINEER, RESERVOIR ENGINEERING MANAGER-C [address], [place], [place], [address] [place] [address] , [facility] & [place] 4 10:37:25 Insomnia 609251522 Active 2023 Drew Francis DNP, APRN, RESERVOIR ENGINEERING MANAGER-C [address], [place], [place], [address] [place] [address] , [facility] & [place] 4 10:37:33 Morbid obesity 348915360 Active 2023 Drew Francis DNP, APRN, RESERVOIR ENGINEERING MANAGER-C [address], [place], [place], [address] [place] [address] , [facility] & [place] 4 10:37:54 Tobacco user 465219627 Active 2023 Drew Francis DNP, APRN, RESERVOIR ENGINEERING MANAGER-C [address] , [place], [place], [address] [place] [address] , [facility] & [place] 4 10:38:04 Elevated blood-pressur e reading without diagnosis of hypertension 194373544 Active 2023 Drew Francis DNP, PIPING ENGINEER, RESERVOIR ENGINEERING MANAGER-C [address] [facility], [place], [place], [address] [place] [address] , [facility] & [place] 4 10:38:27 Heartburn 13193763 Active 2023 Drew Francis DNP, PIPING ENGINEER, RESERVOIR ENGINEERING MANAGER-C [address], [place], [address] , [facility] & [place] 4 10:38:44 Problem Notes None recorded. Procedures Surgical History Date Name Laterality Status Provider Name and Address Organization Details Recorded Time section completed Drew Francis, DNP, PIPING ENGINEER, RESERVOIR ENGINEERING MANAGER-C [address], [place], [address], [facility] & [place] 06/02/2024 10:25:49 extraction of wisdom tooth completed Madyson Arenas [facility] & [place] 06/01/2024 14:24:49 Imaging Results None recorded. Procedure Notes None recorded. Medical Equipment None Reported. Allergies Allergen ID Allergen Name Allergen Category Reaction Reaction Severity Criticality Documentation Date Start Date Code Code System Note Provider Name and Address Organization Details Recorded Time 22481 codeine medicatio n Not available Not available Not available 07/14/2023 2670 RxNorm [facility] [place] 3 13:43:50 Medications Name Sig Start Date Stop Date Status Note LastModified by Organization Details LastModified Time Celexa 10 mg tablet Take 1 tablet every day by oral route. active Not Available Not Available No t Available trazodone 50 mg tablet TAKE 1 TABLET BY MOUTH NIGHTLY FOR INSOMNIA active Not Available Not Available No t Available sulfamethox azole 800 mg-trimetho prim 160 mg tablet TAKE 1 TABLET BY MOUTH TWICE DAILY FOR 10 DAYS 06/01 completed Not Available Not Available Not Available citalopram 20 mg tablet TAKE 1/2 (ONE-HALF ) TABLET BY MOUTH ONCE DAILY FOR 2 WEEKS THEN INCREASE TO 1 TABLET EVERY DAY 06/01 completed Not Available Not Available Not Available phenazopyri dine 100 mg tablet TAKE 1 TABLET BY MOUTH THREE TIMES DAILY FOR 2 DAYS 06/01 completed Not Available Not Available Not Available neomycin-po lymyxin-dex ameth 3.5 mg/mL-10,00 0 unit/mL-0.1 % eye drops INSTILL 1 DROP INTO EACH EYE 4 TIMES DAILY FOR 10 DAYS 06/02 completed Not Available Not Available Not Available propranolol 20 mg tablet TAKE 1 TABLET BY MOUTH TWICE DAILY FOR 30 DAYS 06/02 completed Not Available Not Available Not Available cholecalcif cecilia (vitamin D3) 1,250 mcg (50,000 unit) capsule Take 1 capsule every week by oral route. 2023 active Not Available Not Available Not Avai lable Vitals Date Recorded Body height Body mass index (BMI) Body weight Body temperature Heart rate Systolic And Diastolic Provider Name and Address Organization Details Last Updated DateTime 4 157.48 cm 50.6 kg/m2 180240. 29 g 97.8 [degF] 79 /min 163/95 mm[Hg] Yoli Saavedra [facility] & [place] 07:56:53 Social History Question Answer Notes LastModified by Organizat ion Details LastModified Time Tobacco Smoking Status Current Every Day Smoker Lindsay Juarez [facility], [facility] & [place] 07/14/2023 13:47:53 What Is Your Level Of Caffeine Consumption? Moderate Information not available 07/14/2023 What Type Of Diet Are You Following? REGULAR [email or web address] Information not available 07/14/2023 How Much Tobacco Do You Smoke? 1 PPD [email or web address] Information not available 07/14/2023 How Many Years Have You Smoked Tobacco? 40 [email or web address] Information not available 07/14/2023 Sex: Unknown Functional Status Question Answer Note LastModified by Organizat ion Details LastModified Time Do you use any illicit or recreational drugs? No [email or web address] Information not available 07/14/2023 What is your level of alcohol consumption? Occasional [email or web address] Information not available 07/14/2023 What is your exercise level? Occasional Information not available 07/14/2023 Mental Status None recorded. Family History Relationship Description Onset Age of this Age Resolved Age Notes LastModified by Organization Details LastModified Time Mother Myocardial infarction 62 [email or web address] Not available 13:45:37 Mother Obese [email or web address] Not availab le 06/01/2024 14:25:52 Mother Hypertensive disorder [email or web address] Not available 07/2024 14:26:08 Mother Heart disease [email or web address] Not available 07/2024 14:26:21 Father Diabetes mellitus [email or web address] Not available 10/2 12/2022 13:45:48 Father Hypertensive disorder [email or web address] Not available 07/2024 14:26:08 Paternal Grandmother Obese [email or web address] Not available 0 06/01/2024 14:25:52 Maternal Grandfather Chronic obstructive pulmonary disease [email or web address] Not available 07/2024 14:26:34 Medical History Condition Response Anxiety Disorder Y Other Y Reflux/GERD Y Kidney Stones Y Headaches Y Varicosities Y Hypertension Y Depression Y GI Problems Y Gynecological HistoryNo gynecological history recorded. Obstetrics History GPAL:G 0 P 0 0 0 0 Immunizations Vaccine Type Date Status Note Provider Nam e and Address Organization Details Recorded Time influenza, unspecified formulation 06/17/2023 completed Yoli Saavedra [facility] [place] 06/02/2024 07:58:26 Past Encounters Encounter ID Performer Location Encounter Start Date Encounter Closed Date Diagnosis/Indication Diagnosis SNOMED-CT Code Diagnosis ICD10 Code Diagnosis IMO Codes Diagnosis Note [id number] Drew Francis, DNP, PIPING ENGINEER, RESERVOIR ENGINEERING MANAGER-C [facility] [address] [facility] [address] [place] [address] 06/02/2024 07:45:01 06/02/2024 11:10:39 Obesity 695284910 E66.9 The patient will be scheduled for the following. Initial intake lab work, cardiac clearance, and EGD. All risks complicati ons and alternativ es of the upper endoscopy were discussed with the patient and agreed upon. These include but are not limited to, over sedation, bleeding, perforatio n. Patient will be educated by the surgical weight loss team regarding if any medical managed weight loss will be required and they will follow this according to their recommenda tions. 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 Pre-surger y evaluation 861617845 Z01.818 Obesity screening 016235 005 Z13.89 Anxiety 67907906 F41.9 Insomnia 149608257 G47.0 0 Elevated blood-pressure reading without diagnosis of hypertension 077484588 R03.0 Heartburn 73783197 R12 Morbid obesity 335706528 E66.01 Tobacco user 545874010 Z 72.[id number], LD [facility] [address] [place] [address] 06/02/2024 10:53:22 06/02/2024 13:11:39 Morbid obesity 354585207 E66.01 BMI 50.6 Health Concerns Section Related Observation LastModified by Organization Detai ls LastModified Time None Recorded Concern Status LastModified by Organization Details LastModified Time None Recorded Advance Directives Directive None Recorded Payers Insurance Date Sequence Insurance Name Policy Number Policy Mauricio Covered Member ID Mauricio Member ID Guarantor Name 11/07/2024 1 [place] [id number] Francia Mcdonald [id number] Francia Mcdonald Notes Date Note Type Note Provider Name and Address Organization Details Recorded Time 06/02/2024 text/html ROS as noted in the HPI Patient presents today for the initial evaluation with an interest in bariatric surgery. Patients first choice for bariatric surgery is RNY bypassPt has been overweight most of their life. Has been 100lbs or more over weight for 10 years. Pt reports dyspnea joint pain and mobility issues related to excess weight.The pt is pursuing weight loss surgery because excess weight directly contributes to comorbidities including anxiety, elevated blood pressure, heartburn, insomnia.Diets include calorie counting high protein/low carb diet. Pt site physical hunger and boredom as prompts to eat. Struggles with portion size.She reports no blood clot history. DIET HX:The patient states that they have been overweight since young adulthoodThe patient states that they have been 100 lbs or more overweight 20 years.The patient started dieting at the age of 23Dieting methods that have been most successful in losing weight are watching intake, drinking water, and exercise.The most weight ever lost on a single dieting attempt was 100lbs and this was maintained until ?The patient has attempted the following unsupervised diet attempts calorie counting, low fatThe Patient has followed the following supervised diet attempts WW, TOPSThe following OTC or prescribed medications have been utilized for weight loss fen-phenBehavior treatments for weight loss that have been attempted in the past were noneThe patient has utilized the following modes of exercise to help with weight loss walking, running, weight training, team sports, aerobicsThe patient has not use self induced behaviors to help them lose weight in the past.Currently the patient admits to an eating history of eating large meals at one sitting, skipping meals, snacking in the day and evening and late at night.The patient feels that the majority of their meals are prepared at home.Common triggers for causing the patient to overeat are physical hunger, boredom and loneliness. Drew Francis, DNP, PIPING ENGINEER, RESERVOIR ENGINEERING MANAGER-C [address] [facility], [place], [address], [facility] - [place] & [place] 06/02/2024 10:40:20 06/02/2024 text/html Intake Template RDN met w/ DOREEN Keating 1970, who is a 54 YO to complete initial nutritional assessment for intake of bariatric surgery. Pt is interested in RNY. Height = 62in. Weight = 276.5# (BMI = 50.6 ). PMH significant for IBS, HTN, PCOS, GERD Past weight loss attempts: ww, TOPS, OA, low fat, calorie restriction Hx of eating disorder: no Prescription diet pills: Fen-Phen Herbal supplements: No Vitamins: No Meal Pattern: B: skipsL: Ham sand, pretzelsD: Shrimp, steak friesSnacks: donuts, granola bars, cheese crackers Eating out: 4 times a week Beverages: water 48-64 oz/day, Sprite zero<1/day, Diet kristen tea - 1.5/day Alcoholic consumption: one time per week Smoking/Tobacco: smokes Exercise: Door dashes 2 times a week Recent changes: None Motivation for surgery: Health and to feel better Support after surgery: kids, friends Goals for surgery: Would like to weigh 135-150 Additional Notes:Weigh-Ins Needed:NoWeigh-Ins Scheduled: RDN recommendations:1. Eat 3 meals a day2. Download [employer]it[employer] and start keeping food records3. Review manual for meal and snack ideas4. Look for food triggers and replace with healthy snacks5. Wean off soft drinks and replace with water6. Physical activity 3 times a week Pt verbally agreeable to recommendations. Denied having further questions/concerns. MIKAN concludes that pt is a candidate for sx at this time. MIKAN will f/up and monitor PRN. TINY MARTINEZ RD, LD [address], [place], [address], [facility] - [place] & [place] 06/02/2024 13:11:08 OBGyn Episode No OBEpisode recorded.
--- NOTE | 2025-07-17 16:47 | XR_ITS ---
PROCEDURE INFORMATION: Exam: XR Chest Exam date and time: 07/17/2025 4:49 PM Age: 55 years old Clinical indication: Shortness of breath; Additional info: SOB TECHNIQUE: Imaging protocol: Radiologic exam of the chest. Views: 2 views. COMPARISON: CT LUNG SCREENING 01/13/2025 8:01 AM FINDINGS: Lungs: There is mild elevation of the right hemidiaphragm. Lung volumes are mildly diminished. The lungs appear clear. No focal areas of consolidation. Pleural spaces: No pleural effusions. Negative for pneumothorax. Heart/Mediastinum: Cardiac silhouette and pulmonary vasculature are within range of normal. Bones/joints: The thoracic spine demonstrates mild degenerative changes at multiple levels. There is no evidence of acute fracture. IMPRESSION: Negative for an acute cardiopulmonary abnormality.
== END 2025-07-17 23:59 | disposition home or self-care (01) ==
LOC: RAD 16:43
PROVIDERS: PCP Internal Medicine Adolescent Medicine; Visit Provider Internal Medicine Adolescent Medicine
DX: S89.392A Other physeal fracture of lower end of left fibula, initial encounter for closed fracture (principal); R06.02 Shortness of breath; W19.XXXA Unspecified fall, initial encounter
CPT/HCPCS: 71046; 73590

== ENCOUNTER 2025-07-19 14:05 | Outpatient (CLI) | payer BC, SELFPAY ==
--- OUTSIDE RECORDS SUMMARY | 2024-12-06 04:00 | XMS_ITS ---
Author Organization [facility] Address [address] [place] [address] Care Team Providers Care Sterile Products Processor Name Role Phone Mary Toro Primary Care Provider REASON FOR VISIT Labs Encounters Encounter Location Date Provider Diagnosis [facility] [address] [place], [place] [address] 12/06/2024 Mary Toro Plan Of Treatment No Information Progress Notes * Francia PUENTESDOB:1970 (55 yo F)Acc No.[id number]:12/06/2024 LABS Patient: Francia MARTINEZ Danni Provider: DEMARCUS Castano :1970 A ge:54 Y S ex:Female Date:12/06/2024 Address:[address] [id number] Subjective: * Chief Complaints: * 1 . Labs. * Medical History: Objective: * Vitals: Assessment: Plan: * Treatment: * * Electronic signature of Jessica Toro APRN on 07/19/2025 at 02:06 PM EDT Sign off status: Pending * Provider: DEMARCUS Castano Date: 0 12/06/2024 Generated for Printi ng/Faxing/eTransmitting on: 1 02:06 PM EDT
--- OUTSIDE RECORDS SUMMARY | 2024-12-24 17:30 | XMS_ITS ---
Author Organization [facility] Address [address] [place] [address] Care Team Providers Care Plastic Card Grader Cardroom Name Role Phone Mary Toro Primary Care Provider Migration, Provider Unavailable Unavailable Allergies Allergen (clinical drug ingredient) Drug/Non Drug Allergy documented on EMR Reaction Allergy Type Onset Date Status codeine Codeine Unknown Drug Allergy Active [facility] VISIT [facility] Encounter Medications Medication SIG (Take, [...] Active Encounters Encounter Location Date [facility] [address] [place] [address] 12/24/2024 Provider Migration Situational mixed anxiety and [...] :1970 A ge:54 Y S ex:Female Date:12/24/2024 Address:[address] [place] [address] [facility] [id number] Pcp:Mary Toro Subjective: * Chief Complaints: * [...] Electronic signature of Pipo howard Migration on 07/19/2025 at 02:07 PM EDT Sign off status: Pending * Provider: Rebeca braswell Migration Date: 0 12/24/2024 Generated for Megha macdonald/Jus/Richarditting on: 1 02:07 PM EDT
--- OUTSIDE RECORDS SUMMARY | 2025-07-05 07:15 | XMS_ITS ---
Author Organization [facility] Address [address] [place] [address] Care Team Providers Care Clean Rice Grader And Reel Tender Name Role Phone Mary Toro Primary Care Provider Jose F Cade Unavailable [phone] REASON FOR VISIT feet swelling, other issues Encounters Encounter Location Date Provider Diagnosis [facility] [address] [place], [place] [address] 07/05/2025 Jose F Cade Plan Of Treatment No Information Progress Notes * Francia PUENTESDOB:1970 (55 yo F)Acc No.[id number]:07/05/2025 Progress Notes Patient: Francia MARTINEZ Provider: Tasha Cade MD :1970 A ge:55 Y S ex:Female Date:07/05/2025 Address:[address] [place], [id number] Pcp:Mary Toro Subjective: * Chief Complaints: * 1 . Feet swelling, other issues. * Medical History: Objective: * Vitals: Assessment: Plan: * Treatment: * * Electronic signature of Derrick Cade MD FAAP on 07/19/2025 at 02:07 PM EDT Sign off status: Pending * Provider: Tasha Cade MD Date: 1 Generated for Megha macdonald/Jus/eTransmitting on: 1 02:07 PM EDT
--- OUTSIDE RECORDS SUMMARY | 2025-07-17 12:00 | XMS_ITS ---
Author Organization [facility] D STEPHANIE Address [address] [place] [address] Care Team Providers Care Mock Up Assembler Name Role Phone Mary Toro Primary Care Provider [phone] Jose F Cade [phone] Allergies Allergen (clinical drug ingredient) Drug/Non Drug Allergy documented on EMR Reaction Allergy Type Onset Date Status codeine Codeine Unknown Drug Allergy Active Results Component Value Reference Range Notes COMPREHENSIVE METABOLIC PANE L (40420) Reviewed date:07/19/2025 10:08:14 AM Interpretation: Performing Lab:TIAN, [facility] Ugfd7818 [facility], [place] [facility] ServicesCrzvGE[address] Anderson Gonzalez Notes/Report: NON-FASTING; NON-FASTING; NON-FASTING; NON-FASTING [...] Reviewed date:07/19/2025 10:07:29 AM Interpretation: Performing Lab:TIAN, LoHaria-Maaguzi Abab1461 [employer], [facility] HealthIxkkGP[address] Anderson Gonzalez Notes/Report: NON-FASTING; NON-FASTING; NON-FASTING; NON-FASTING MAGNESIUM 2.1 1.5-2.5 mg/dL CBC (INCLUDES DIFF/PLT) (639 9) Reviewed date:07/19/2025 10:07:35 AM Interpretation: Performing Lab:TIAN LoHaria-Maaguzi Chxx9476 [address] [employer], Guardant HealthZdihEH[address] Anderson Gonzalez Notes/Report: NON-FASTING; NON-FASTING; NON-FASTING; NON-FASTING [...] RDW 12.8 11.0-15.0 % ABSOLUTE NEUTROPHILS 4665 1628-2435 cells/uL ABSOLUTE LYMPHOCYTES 5571 526-7020 cells/uL ABSOLUTE MONOCYTES 738 200-950 cells/uL ABSOLUTE EOSINOPHILS 270 15-500 cells/uL ABSOLUTE BASOPHILS 71 0-200 cells/uL NEUTROPHILS 65.7 LYMPHOCYTES 19.1 MONOCYTES 10.4 EOSINOPHILS 3.8 BASOPHILS 1.0 PLATELET COUNT TNP TEST(S) NOT PERFORMED: PLATELET COUNT Unable to report due to significant platelet clumping. PLATELET ESTIMATION ADEQUATE Platelet s clumped, appear adequate. HEMOGLOBIN A1c (496) Reviewed date:07/19/2025 10:07:18 AM Interpretation: Performing Lab:TIAN LoHaria-Maaguzi [address], [place] IlhsJF[address] Anderson Gonzalez Notes/Report: NON-FASTING; NON-FASTING; NON-FASTING; NON-FASTING [...] children. B TYPE NATRIURETIC PEPTIDE ( BNP) (90781) Reviewed date:07/19/2025 10:08:20 AM Interpretation: Performing Lab:TIAN LoHaria-Maaguzi Wodd5550 [address] [facility], [place] RtfrLK[address] Anderson Gonzalez Notes/Report: NON-FASTING B TYPE NATRIURETIC PEPTIDE (BNP) 104 <100 pg/mL BNP levels increase with age in the general population with the highest values seen in individuals greater than 75 years of age. Reference: J. Am. Shun. Cardiol. 2002; 40:976-982. TESTOSTERONE, TOTAL, MS (159 83) Reviewed date:07/19/2025 10:07:23 AM Interpretation: Performing Lab:Z3E, MedFusion-QnaPlefpu2824 [facility] [address], [address], DfsuzjzemsWC[address] Tami Le MD,PhD Notes/Report: NON-FASTING; NON-FASTING; NON-FASTING; NON-FASTING Reason For Referral Reason Echocardiogram and C T scan of chest-dyspnea with no gallop rhythm Diagnosis 1 Shortness of breath (R06.02) Referral Organization [facility] TRAM [facility]OWN Referring Provider First Name Jose F Referring Provider Last Name Alyssia Referring Provider Speciality Internal M edicine Referred Organization [facility] Referred Address [address], [place], [place],[address],[place] Referred Provider Specialty Diagnostic R adiology General Notes Rosa Malcolm 2024 09:22:08 AM >sent to [facility] approved and marked urgent Referral Priority [...] Status Risk Notes Problem Gastroesophageal reflux disease (207763763) GERD without esophagitis (K21.9) Active confirmed Vital Signs Temperature 98.0 degrees Fahrenheit 07/17/20 25 Blood pressure systolic 156 mm Hg 07/17/20 25 Blood pressure diastolic 84 mm Hg 025 Heart Rate 92 /min 07/17/2025 Height 62.5 in 07/17/2025 Weight 299 lbs 07/17/2025 BMI 53.81 kg/m2 07/17/2025 Encounters Encounter Location Date Provider Diagnosis [facility] [address] [facility] [address] [place] [address] 07/17/2025 Jose F Cade Prediabetes R73.03 ; [...] ordered. Greater than 30 minutes spent in hkil-cb-zyno patient contact Plan Of Treatment Medication Medication [...] PPI Pending Test Test Name Order Date CT Scan : Chest, Without Contrast 2024 X ray : Tib/Fib, Right 07/17/2025 Echocardiogram 07/17/2025 X ray : Chest PA and Lateral 07/17/2025 TESTOSTERONE, [place], MS ([id number]) 2024 Referrals Referral Date Details 07/17/2025 07/17/2025, Echocard iogram and CT scan of chest-dyspnea with no gallop rhythm, [address], [place], [address], Next Appt Details Follow Up: prn, Reason: Progress Notes * Francia PUENTESB:1970 (55 yo F)Acc No.[id number]:07/17/2025 Progress Notes Patient: Francia MARTINEZ Provider: Tasha Cade MD :1970 A ge:55 Y S ex:Female Date:07/17/2025 Address:[address] [place] [address], [place], [id number] Pcp:Mary Toro Subjective: * Chief Complaints: * 1 . Feet swelling, passed out last night on porch, right leg pain. 2. Wants to lose weight, SOA, no energy. 3. Heartburn at night. * HPI: zeenat ashraf: Here with a litany of complaints. 1. [...] 2 . * Hospitalization/Major Diagno stic Procedure[facility], [facility]. * Family History: F ather: alive, diabetes, type II. M other: , hypertension, arthritis, [place]. P aternal Grand Father: . P aternal [...] yes. Travel outside [place]: yes, [place], [place], [facility]. 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 * Medications: T aking Naproxen 250 [...] *Please review and pick correct strength-formulation from [employer].iospan options. If intended option is not shown, [...] mg/dL * B UN/CREATININE RATIO SEE NOTE: 6-22 - (calc) * S ODIUM 138 135-146 [...] - % * A BSOLUTE NEUTROPHILS 4665 4391-9820 - cells/uL * L YMPHOCYTES 19.1 - % * A BSOLUTE LYMPHOCYTES 6265 727-7929 - cells/uL * M ONOCYTES 10.4 - [...] EDT ?LAB: B TYPE NATRIURETIC PEPTIDE (BNP) (97516)* Value Reference Range B TYPE NATRIURETIC 104 H <100 - pg/mL * This lab was reviewed by Rishi Malcolm on 07/19/2025 at 10:08 AM EDT ?LAB: TESTOSTERONE, [place], MS (32725V6) Notes: A1c previously 5.8%. Will redo this. Check metabolic studies as noted??2.?Weight gain?LAB: COMPREHENSIVE METABOLIC PANEL (95105)* Value Reference Range G LUCOSE 88 65-99 - mg/dL * U KAMALA NITROGEN (BUN) 7 7-25 - mg/dL * C REATININE 0.75 0.50-1.03 - mg/dL * B UN/CREATININE RATIO SEE NOTE: 6-22 - (calc) * S ODIUM 138 135-146 [...] 10:07 AM EDT ?LAB: CBC (INCLUDES DIFF/PLT) (6007)* Value Reference Range W NAVJOT BLOOD CELL [...] - % * A BSOLUTE NEUTROPHILS 4665 6058-4874 - cells/uL * L YMPHOCYTES 19.1 - % * A BSOLUTE LYMPHOCYTES 8217 176-3298 - cells/uL * M ONOCYTES 10.4 - [...] EDT ?LAB: B TYPE NATRIURETIC PEPTIDE (BNP) (19206)* Value Reference Range B TYPE NATRIURETIC 104 H <100 - pg/mL * This lab was reviewed by Rishi Malcolm on 07/19/2025 at 10:08 AM EDT ?LAB: TESTOSTERONE, [place], MS (58541T7) Notes: Check labs. Echocardiogram and CT scan to make sure were not dealing with new onset heart failure given the sudden changes in her exertion and the new gallop rhythm?? 3.?Shortness of breath?LAB: COMPREHENSIVE METABOLIC PANEL (13909)* Value Reference Range G LUCOSE 88 65-99 - mg/dL * U KAMALA NITROGEN (BUN) 7 7-25 - mg/dL * C REATININE 0.75 0.50-1.03 - mg/dL * B UN/CREATININE RATIO SEE NOTE: 622 - (calc) * S ODIUM 138 135-146 [...] 10:07 AM EDT ?LAB: CBC (INCLUDES DIFF/PLT) (4664)* Value Reference Range W NAVJOT BLOOD CELL [...] - % * A BSOLUTE NEUTROPHILS 4665 7156-9724 - cells/uL * L YMPHOCYTES 19.1 - % * A BSOLUTE LYMPHOCYTES 7161 642-8013 - cells/uL * M ONOCYTES 10.4 - [...] EDT ?LAB: B TYPE NATRIURETIC PEPTIDE (BNP) (09079)* Value Reference Range B TYPE NATRIURETIC 104 H <100 - pg/mL * This lab was reviewed by Rishi Malcolm on 07/19/2025 at 10:08 AM EDT ?LAB: TESTOSTERONE, [place], MS (19720V7) ?Imaging: CT Scan : Chest, Without Contrast * ?Imaging: Echocardiogram * ?Imaging: X ray [...] ordered. Greater than 30 minutes spent in vuou-bk-caxi patient contact?? * Immunizations: FLUCELVAX : 0.5 mL (Route: Intramuscular) given by Minal Earlywine , BNE on Left Deltoid * Labs: * L ab: TESTOSTERONE, [place], MS (61471) * Procedure Codes: 9 0661 FLUCELVAX, 95482 immunization administration through 18 years of age via any route of administration. * Follow Up: p rn * * Sign off status: Completed true * Provider: Tasha Cade MD Date: Generated for Megha macdonald/Jus/eTransmitting on: 02:07 PM EDT History and Physical Notes * HPI (History [...] Referring Provider Referred Provider Not es 07/17/2025 Besson, Jose F , Echocardiogr am and CT scan of chest-dyspnea with no gallop rhythm
--- OUTSIDE RECORDS SUMMARY | 2025-07-18 16:08 | XMS_ITS ---
Author Organization [facility] Address [address] [facility] [address] [place], [place] [address] Care Team Providers Care Cushion Gum Applicator Name Role Phone Muna, Mary Primary Care Provider Medications Medication SIG (Take, Route, Fr equency, Duration) Notes Start Date End Date Status Wegovy 0.25 MG/0.5ML 0.5 mL Subcutaneous weekly; Duration: 30 days 07/18/2025 Active Problems Problem Type SNOMED Code ICD Code Onset Dates Problem Status W/U Status Risk Notes Problem PORTER - Nonalcoholic steatohepatitis (642376366) Metabolic dysfunction-associ ated steatohepatitis (MASH) (K75.81) Active confirmed Problem Type 2 diabetes mellitus with other specified complication (E11.69) Active confirmed Problem Morbid obesity (disorder) (105731064) Morbid (severe) obesity due to excess calories (E66.01) Active confirmed Encounters Encounter Location Date Provider Diagnosis [facility] [address] [facility] [address] [place], [place] [address] 07/18/2025 Mary Toro Metabolic dysfunction-associated steatohepatitis (MASH) [...] mL Subcutaneous weekly; Duration: 30 days 07/18/2025 Progress Notes * Francia PUENTES DanniDOB:1970 (55 yo F)Acc No.[id number]:07/18/2025 Patient: Francia MARTINEZ :1970 A ge:55 Y S ex:Female Address:[address] [place] [phone] * Refills Start Wegovy Solution Auto-injector, 0.25 [...] * true * Date: Generated for Megha macdonald/Jus/Valentino on: 1 02:07 PM EDT
--- OUTSIDE RECORDS SUMMARY | 2025-07-19 06:08 | XMS_ITS ---
Author Organization [facility] Address [address] [facility] [address] [facility] [address] [place] [address] Care Team Providers Care Application Integrator Name Role Phone Mary Toro Primary Care Provider [phone] Jose F Cade [phone] REASON FOR VISIT liver us order Encounters Encounter Location Date Provider Diagnosis [facility] [address] [place] [address] 07/19/2025 Jose F Cade Elevated liver enzymes [...] Y S ex:Female Address:[address] [place] [address] Subjective: * Chief Complaints: * L iver us order * Medical History: * Surgical History: * Hospitalization/Major Diagno stic Procedure: * Medications: Objective: * Vitals: * Physical Examination: Assessment: * Assessment: 1. E levated liver enzymes - R74.8 Plan: * Treatment: * * Procedure Codes: * true * Date: Generated for Megha macdonald/Jus/Valentino on: 02:07 PM EDT
--- OUTSIDE RECORDS SUMMARY | 2025-07-19 14:07 | XMS_ITS | Patient Health Record ---
Author Organization [facility] Address [address] [place] [address] Care Team Providers Care Porter Baggage Name Role Phone Mary Toro Primary Care Provider Jose F Cade Unavailable [phone] Migration, Provider Unavailable Unavailable Allergies Allergen (clinical drug ingredient) Drug/Non Drug Allergy documented on EMR Reaction Allergy Type Onset Date Status codeine Codeine Unknown Drug Allergy Active Results Component Value Reference Range Notes MAGNESIUM (622) Reviewed date:07/19/2025 10:07:29 AM Interpretation: Performing Lab:TIAN [facility] [address], cWyzeRyriNQ[address] Anderson Gonzalez Notes/Report: NON-FASTING; NON-FASTING; NON-FASTING; NON-FASTING MAGNESIUM 2.1 1.5-2.5 mg/dL HEMOGLOBIN A1c (496) Reviewed date:07/19/2025 10:07:18 AM Interpretation: Performing Lab:TIAN [email or web address] [address], cWyzeBgcpSC[address] Anderson Gonzalez Notes/Report: NON-FASTING; NON-FASTING; NON-FASTING; NON-FASTING [...] A1c for diagnosis of diabetes for children. TESTOSTERONE, TOTAL, MS (159 83) Reviewed date:07/19/2025 10:07:23 AM Interpretation: Performing Lab:Z3E, [facility] [address], [address], MwbhyldqpcWE[address] Tami Le MD,PhD Notes/Report: NON-FASTING; NON-FASTING; NON-FASTING; NON-FASTING B TYPE NATRIURETIC PEPTIDE ( BNP) (92637) Reviewed date:07/19/2025 10:08:20 AM Interpretation: Performing Lab:TIAN [facility] [address] Anderson Gonzalez Notes/Report: NON-FASTING B TYPE NATRIURETIC PEPTIDE (BNP) 104 <100 pg/mL BNP levels increase with age in the general population with the highest values seen in individuals greater than 75 years of age. Reference: J. Am. Shun. Cardiol. 2002; 40:976-982. CBC (INCLUDES DIFF/PLT) (639 9) Reviewed date:07/19/2025 10:07:35 AM Interpretation: Performing Lab:TIAN [facility] [address] LopezL[address] Anderson Gonzalez Notes/Report: NON-FASTING; NON-FASTING; NON-FASTING; NON-FASTING NON-FASTING; NON-FASTING; NON-FASTING; NON-FASTING WHITE BLOOD CELL COUNT 7.1 3.8-10.8 Thousand/uL RED BLOOD CELL COUNT 4.34 3.80-5.10 Million/uL [...] RDW 12.8 11.0-15.0 % ABSOLUTE NEUTROPHILS 4665 [phone] cells/uL ABSOLUTE LYMPHOCYTES 2793 533-4698 cells/uL ABSOLUTE MONOCYTES 738 200-950 cells/uL ABSOLUTE EOSINOPHILS 270 15-500 cells/uL ABSOLUTE BASOPHILS 71 0-200 cells/uL NEUTROPHILS 65.7 LYMPHOCYTES 19.1 MONOCYTES 10.4 EOSINOPHILS 3.8 BASOPHILS 1.0 PLATELET COUNT TNP TEST(S) NOT PERFORMED: PLATELET COUNT Unable to report due to significant platelet clumping. PLATELET ESTIMATION ADEQUATE Platelet s clumped, appear adequate. COMPREHENSIVE METABOLIC PANE L (45765) Reviewed date:07/19/2025 10:08:14 AM Interpretation: Performing Lab:TIAN, [facility] [address], MiroiNxdpVW[address] Anderson Gonzalez Notes/Report: NON-FASTING; NON-FASTING; NON-FASTING; NON-FASTING [...] 134 10-35 U/L ALT 95 6-29 U/L TEST AUTHORIZATION Reviewed date:12/08/2024 08:00:55 AM Interpretation: Performing Lab:TIAN [email or web address] [address], cWyzeFyjwKE[address] Anderson Gonzalez Notes/Report: NON-FASTING; NON-FASTING; NON-FASTING; NON-FASTING; NON-FAST FASTING:YES FASTING: YES TEST NAME: HEPATITIS PANEL, GENERAL TEST CODE: [id number] CLIENT CONTACT: KEREN EATON IOP REPORT ALWAYS MESSAGE SIGNATURE The laboratory testing on this patient was verbally requested or confirmed by the ordering physician or his or her authorized outside dealer sales representative after contact with an employee of [facility]. Federal regulations require that we maintain on file written authorization for all laboratory testing. Accordingly we are asking that the ordering physician or his or her authorized outside dealer sales representative sign a copy of this report and promptly return it to the client services director. Signature: COMMENT Please fax this signed form to [phone]. Please do not attempt to return this document by other methods. Documents will not be viewed by a outside dealer sales representative. Please do not use this fax number for other service requests. HEPATITIS PANEL, GENERAL (64 62) Reviewed date:12/09/2024 10:47:25 AM Interpretation: Performing Lab:TIAN, [facility] [address] [facility], [facility] HospitalStreUW[address] Anderson Gonzalez Notes/Report: NON-FASTING; NON-FASTING; NON-FASTING; NON-FASTING; NON-FAST FASTING:YES FASTING: YES HEPATITIS A AB, TOTAL REACTIVE NON-REACTIVE For additional information, please refer to http://[employer]Vocalytics/faq/BSW709 (This link is being provided for informational/ educational purposes only.) HEPATITIS B SURFACE ANTIBODY QL NON-REACTIVE NON-REACTIVE HEPATITIS B SURFACE ANTIGEN NON-REACTIVE NON-REACTIVE For additional information, please refer to http://[employer]/faq/SOO029 (This link is being provided for informational/ educational purposes only.) HEPATITIS B CORE AB TOTAL NON-REACTIVE NON-REACTIVE For additional information, please refer to http://[employer]/faq/PDY569 (This link is being provided for informational/ educational purposes only.) HEPATITIS C ANTIBODY NON-REACTIVE NON-REACTIVE HCV antibody was non-reactive. There is no laboratory evidence of HCV infection. In most cases, no further action is required. However, if recent HCV exposure is suspected, a test for HCV RNA (test code 33173) is suggested. For additional information please refer to http://education.[employer]/faq/FAQ22v 1 (This link is being provided for informational/ educational purposes only.) CT Scan : Chest, Lung Cancer Screening Reviewed date:01/17/2025 09:14:22 AM Interpretation: Performing Lab: Notes/Report: CT Scan : Chest, Lung Cancer Screening Reviewed date:01/17/2025 09:14:22 AM Interpretation: Performing Lab: Notes/Report: Mammogram: Screening Reviewed date:01/20/2025 10:23:15 AM Interpretation: Performing Lab: Notes/Report: LIPID PANEL, STANDARD (7600) Reviewed date:12/09/2024 10:47:26 AM Interpretation: Performing Lab:TIAN [facility] [address], [place] WokbYR[address] Anderson Gonzalez Notes/Report: NON-FASTING; NON-FASTING; NON-FASTING; NON-FASTING; NON-FAST FASTING:YES FASTING: YES CHOLESTEROL, TOTAL 224 <200 mg/dL HDL CHOLESTEROL 66 > OR = 50 mg/dL TRIGLYCERIDES 114 <150 mg/dL LDL-CHOLESTEROL 136 Reference range: <100 Desirable range <100 mg/dL for primary prevention; <70 mg/dL for patients with CHD or diabetic patients with > or = 2 CHD risk factors. LDL-C is now calculated using the Luís-Chris calculation, which is a validated novel method providing better accuracy than the Friedewald equation in the estimation of LDL-C. Luís SS et al. ELENA. 2013;310(19): 1215-9401 (http://education.CircleUp/faq/FAQ16 4) CHOL/HDLC RATIO 3.4 <5.0 (calc) NON HDL CHOLESTEROL 158 <130 mg/dL (calc) For patients with diabetes plus 1 major ASCVD risk factor, treating to a non-HDL-C goal of <100 mg/dL (LDL-C of <70 mg/dL) is considered a therapeutic option. COMPREHENSIVE METABOLIC PANE Gloria (94077) Reviewed date:12/09/2024 10:47:26 AM Interpretation: Performing Lab:TIAN [email or web address] Twgd[address]1 [facility] Anderson Gonzalez Notes/Report: NON-FASTING; NON-FASTING; NON-FASTING; NON-FASTING; [...] Reviewed date:12/09/2024 10:47:26 AM Interpretation: Performing Lab:TIAN [id number] [employer] [facility] Andesron Gonzalez Notes/Report: NON-FASTING; NON-FASTING; NON-FASTING; NON-FASTING; NON-FAST FASTING:YES FASTING: YES MAGNESIUM 2.2 1.5-2.5 mg/dL CREATINE KINASE, TOTAL (374) Reviewed date:12/09/2024 10:47:26 AM Interpretation: Performing Lab:TIAN [facility] [address] [facility] Health[address] Anderson Gonzalez Notes/Report: NON-FASTING; NON-FASTING; NON-FASTING; NON-FASTING; NON-FAST FASTING:YES FASTING: YES CREATINE KINASE, TOTAL 77 21-240 U/L CBC (INCLUDES DIFF/PLT) (639 9) Reviewed date:12/09/2024 10:47:26 AM Interpretation: Performing Lab:[facility]13[facility] [place], [facility] CenterMptuJY[address] Anderson Gonzalez Notes/Report: NON-FASTING; NON-FASTING; NON-FASTING; NON-FASTING; [...] RDW 13.6 11.0-15.0 % ABSOLUTE NEUTROPHILS 3705 4622-8683 cells/uL ABSOLUTE LYMPHOCYTES 8582 693-1645 cells/uL ABSOLUTE MONOCYTES 525 200-950 cells/uL ABSOLUTE EOSINOPHILS 201 15-500 cells/uL ABSOLUTE BASOPHILS 59 0-200 cells/uL NEUTROPHILS 62.8 LYMPHOCYTES 23.9 MONOCYTES 8.9 EOSINOPHILS 3.4 BASOPHILS 1.0 PLATELET COUNT TNP TEST(S) NOT PERFORMED: PLATELET COUNT Unable to report due to significant platelet clumping. PLATELET ESTIMATION ADEQUATE Platelet s clumped, appear adequate. HEMOGLOBIN A1c (496) Reviewed date:12/09/2024 10:47:26 AM Interpretation: Performing Lab:[facility]13[facility], [facility] CenterIyfeYU[address] Anderson Gonzalez Notes/Report: NON-FASTING; NON-FASTING; NON-FASTING; NON-FASTING; [...] diabetes for children. TSH W/REFLEX TO FT4 (70732) Reviewed date:12/09/2024 10:47:26 AM Interpretation: Performing Lab:TIAN, [facility], cWyzeTbweKP[address] Anderson Gonzalez Notes/Report: NON-FASTING; NON-FASTING; NON-FASTING; NON-FASTING; NON-FAST FASTING:YES FASTING: YES TSH W/REFLEX TO FT4 2.90 0.40-4.50 mIU/L VITAMIN D,25-OH,TOTAL,IA (17 306) Reviewed date:12/09/2024 10:47:26 AM Interpretation: Performing Lab:TIAN, [facility], WebVisibleDguoRQ[address] Anderson Gonzalez Notes/Report: NON-FASTING; NON-FASTING; NON-FASTING; NON-FASTING; NON-FAST FASTING:YES FASTING: YES VITAMIN D,25-OH,TOTAL,IA 26 30-100 ng/mL Vitamin D Status 25-OH Vitamin D: Deficiency: <20 ng/mL Insufficiency: 20 - 29 ng/mL Optimal: > or = 30 ng/mL For 25-OH Vitamin D testing on patients on D2-supplementation and patients for whom quantitation of D2 and D3 fractions is required, the KontronAssureD(TM) 25-OH VIT D, (D2,D3), LC/MS/MS is recommended: order code 83732 (patients >2yrs). See Note 1 Note 1 For additional information, please refer to http://education.[employer] Depot/faq/COD098 (This link is being provided for informational/ educational purposes only.) Reason For Referral Reason Mamm, LDCT chest Diagnosis 1 Routine medical exam (Z00.00) Referral Organization [facility] Referring Provider First Name Mary Referring Provider Last Name Muna Referring Provider Speciality Family Pra ctice Referred Organization [facility] Referred Address [address] [place],[address],[place] Referred Provider Specialty Diagnostic R adiology General Notes Rosa Malcolm 2024 09:44:59 AM >Faxed to [facility] to schedule with [facility] Referral Priority Routine Referral Appointment Date 12/23/2024 Reason Echocardiogram and C T scan of chest-dyspnea with no gallop rhythm Diagnosis 1 Shortness of breath (R06.02) Referral Organization [facility] Referring Provider First Name Jose F Referring Provider Last Name Shirahair Referring Provider Speciality Internal M edicine Referred Organization [facility] Referred Address [address] [place],[address],[place] Referred Provider Specialty Diagnostic R adiology General Notes Rosa Malcolm 2024 09:22:08 AM >sent to [facility] approved and marked urgent Referral Priority Urgent Medications Medication SIG (Take, Route, Fr equency, [...] needed Orally every 12 hrs Activ e Wegovy 0.25 MG/0.5ML 0.5 mL Subcutaneous weekly; Duration: 30 days 07/18/2025 Active Immunizations Vaccine Route Administration Date Status Comme nts FLUCELVAX IM Intramuscular 07/17/2025 Administered Flublok IM Intramuscular 06/21/2020 Administered Adacel (Tdap) IM Intramuscular 11/05/2010 Administered Social History Tobacco Use: Social History Observation Description Date Details (start date - stop date) Current Smoker NA - NA Smoking: Question Answer Notes Are you a: current smoker How often do you smoke cigarettes? every day How many cigarettes a day do you smoke? 11-20 Problems Problem Type SNOMED Code ICD Code Onset Dates Problem Status W/U Status Risk Notes Problem Type 2 diabetes mellitus with other specified complication (E11.69) Active confirmed Problem Morbid obesity (disorder) (009557022) Morbid (severe) obesity due to excess calories (E66.01) Active confirmed Problem Tobacco use (597487784) Tobacco use (Z72.0) Active confirmed Problem Mixed anxiety and depressive disorder (002805226) Depression with anxiety (F41.8) Active confirmed Problem Body mass index 40+ - severely obese (930574615) BMI 45.0-49.9, adult (Z68.42) Active confirmed Problem Gastroesophageal reflux disease (988501471) GERD without esophagitis (K21.9) Active confirmed Problem Body mass index 40+ - morbidly obese (375294177) BMI 40.0-44.9, adult (Z68.41) Active confirmed Problem Adjustment disorder with mixed emotional features (66198581) Situational mixed anxiety and depressive disorder (F43.23) Active confirmed Problem Thrombocytopenia (125177791) Thrombocytopenia (D69.6) Active confirmed Problem Insomnia disorder related to another mental disorder (81410668) Psychophysiological insomnia (F51.04) Active confirmed Problem Reactive depression (situational) (78948140) Situational depression (F43.21) Active confirmed Problem Hyperlipidaemia (77989956) Hyperlipidemia, unspecified hyperlipidemia type (E78.5) Active confirmed Problem History of thrombocytopenia (05731012616583) History of thrombocytopenia (Z86.2) Active confirmed Problem Moderate major depression, single episode (51022394) Current moderate episode of major depressive disorder without prior episode (F32.1) Active confirmed Problem PORTER - Nonalcoholic steatohepatitis (563686394) 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 [address] [place] [address] 12/06/2024 Mary Toro [facility] [address] [place] [address] 12/24/2024 Provider Migration Situational mixed anxiety and depressive disorder F43.23 and Tobacco use Z72.0 [facility] [address] [place] [address] 12/05/2024 Mary Toro Routine medical exam Z00.00 ; Visit for screening mammogram Z12.31 ; Personal history of tobacco use Z87.891 ; Colon cancer screening Z12.11 ; Murmur R01.1 ; Situational mixed anxiety and depressive disorder F43.23 ; Tobacco use Z72.0 ; BMI 45.0-49.9, adult Z68.42 ; Weight loss counseling, encounter for Z71.3 ; Myalgia M79.10 and SOB (shortness of breath) R06.02 [facility] [address] [place] [address] 07/17/2025 Jose F Cade Prediabetes R73.03 ; Weight gain R63.5 ; Shortness of breath R06.02 ; Right leg pain M79.604 ; Encounter for immunization Z23 and GERD without esophagitis K21.9 [facility] [address] [place] [address] 12/08/2024 Mary [facility] [address] [place] [address] 07/18/2025 Mary Muna Metabolic dysfunction-associated steatohepatitis (MASH) K75.81 ; Type 2 diabetes mellitus with other specified complication E11.69 and Morbid (severe) obesity due to excess calories E66.01 [facility] [address] [place] [address] 07/19/2025 Jose F Cade Elevated liver enzym es R74.8 Assessments Encounter Date Diagnosis (ICD Code) Assessment Notes Treatment Notes Treatment Clinical Notes Section Notes 12/05/2024 Routine medical exam (ICD-10 - Z00.00) 12/05/2024 Visit for screening mammogram (ICD-10 - Z12.31) 07/17/2025 Weight gain (ICD-10 - R63.5) Check labs. Echocardiogra m and CT scan to make sure were not dealing with new onset heart failure given the sudden changes in her exertion and the new gallop rhythm 07/17/2025 Prediabetes (ICD-10 - R73.03) A1c previously 5.8%. Will redo this. Check metabolic studies as noted 07/18/2025 Type 2 diabetes mellitus with other specified complication (ICD-10 - E11.69) 07/18/2025 Metabolic dysfunction-associa nuria steatohepatitis (MASH) (ICD-10 - K75.81) 07/19/2025 Elevated liver enzymes (ICD-10 - R74.8) 07/18/2025 Morbid (severe) obesity due to excess calories (ICD-10 - E66.01) 07/17/2025 Shortness of breath (ICD-10 - R06.02) [...] esophagitis (ICD-10 - K21.9) Trial of PPI 12/24/2024 Situational mixed anxiety and depressive disorder [...] labs as noted, consider spirometry during FU 07/17/2025 Other Medicine counseling. Review of social issues, alcohol intake, tobacco intake. Complex review of medicine the symptoms, new diagnoses, new labs, x-rays and echocardiogram ordered. Greater than 30 minutes spent in [id number] patient contact Plan Of Treatment Pending Test Test Name Order Date CT Scan : Chest, Without Contrast 2024 X ray : Tib/Fib, Right 07/17/2025 Ultrasound : Liver 07/19/2025 Echocardiogram 07/17/2025 H-URINE CULTURE 08/04/2011 C-LIPASE 08/26/2017 C-CBC 08/26/2017 C-CMP 08/26/2017 C-CMP 11/15/2020 C-LIPID PANEL 11/15/2020 C-AMYLASE 08/26/2017 C-URINE CULTURE 02/01/2015 X ray : Chest PA and Lateral 07/17/2025 TESTOSTERONE, TOTAL, MS ([id number]) 2024 Insurance Providers Payer Name Payer Address Payer Phone Subscriber Number Group Number Insured Name Patient Relationship to Insured Coverage Start Date Coverage End Date [facility] [employer] [address] [place] [address] [id number] Francia Mcdonald Self - patient is the insured Medical (General) History Medical History History ICD Code anxiety Chronic thrombocytopenia, seen by hemato logy 2013 Obesity Tobacco use Surgical History Surgery Date(Month/Year) x 2 Hospitalization History Reason Date(Month/Year) [facility] 1997 [facility] 1992
--- NOTE | 2025-07-19 14:09 | CA_ITS ---
APPROVED REPORT EXAM: Comprehensive 2D, Doppler, and color-flow Echocardiogram Planning Rn: Tanesha Peoples RDCS Ht: 5 ft 2 in Wt: 300lbs BSA: 2.27 BP: 176/93 mmHg Indications: SOA,SMOKER M-Mode Dimensions RVDd 1.46 cm (0.9-2.6) LA Diam 3.81 cm (1.9-4.0) LVDd 5.96 cm (3.5-5.7) LVDs 4.32 cm (3.5-5.7) IVSd 0.84 cm (0.6-1.1) PWd 1.13 cm (0.6-1.1) EF (Teich) 52.60% FS 27.50% EDV (Teich) 177.30 mL ESV (Teich) 84.00 mL Left Ventricle The left ventricle is normal size. Left ventricular systolic function is normal. The left ventricular ejection fraction is within the normal range. There is increased left ventricular wall thickness. There is normal LV segmental wall motion. The left ventricular diastolic function is normal. LVEF is 55%. Right Ventricle The right ventricle is normal size. The right ventricular systolic function is normal. Atria The left atrium size is normal. The right atrium is not well visualized. There is no color Doppler evidence of interatrial shunt. Aortic Valve The aortic valve is mildly thickened. There is no hemodynamically significant aortic valvular stenosis. No aortic regurgitation is present. Mitral Valve The mitral valve is normal in structure. No evidence of mitral valve stenosis. Trace mitral regurgitation is present. Tricuspid Valve The tricuspid valve is not well visualized. Pulmonic Valve The pulmonary valve is not well visualized. Great Vessels The aortic root is normal in size. IVC is not well visualized. Pericardium There is a trivial, anterior pericardial effusion. No clear echo indications of tamponade. Other Information Study Quality: Technically Difficult Conclusion Technically difficult study. Normal biventricular systolic function. No significant valvular stenosis or regurgitation in the visualized valves. Trivial, anterior pericardial effusion. No clear echo indications of tamponade. Electronically signed by : Rosalina Bailey MD 07/23/2025 01:05:15
--- NOTE | 2025-07-19 14:49 | CT_ITS ---
FINAL REPORT TECHNIQUE: Axial images were obtained through the chest without contrast. Multiplanar reconstructions in the sagittal and coronal planes were subsequently performed. This study was performed with techniques to keep radiation doses as low as reasonably achievable (ALARA). Individualized dose reduction techniques using automated exposure control or adjustment of mA and/or kV according to the patient's size were employed. CLINICAL HISTORY: SOA COMPARISON: LDCT 01/13/2025 FINDINGS: CT CHEST: There is a noncalcified posteromedial right hemithorax pleural-based nodule present measuring 5 mm in size, best seen on image #71 of series 3, new since the previous LDCT of 01/13/2025. The heart size is normal. There is no pericardial or pleural effusion. Limited images of the upper abdomen are unremarkable. No areas of consolidation are seen. IMPRESSION: New 5 mm pleural-based nodule in the right hemithorax as described above, recommend 6-month follow-up LDCT for further evaluation. Reviewed, Interpreted and Dictated by Fletcher Pozo MD Transcribed by Dalia Garcia Authenticated and . [facility]
== END 2025-07-19 23:59 | disposition home or self-care (01) ==
LOC: RT 14:05
PROVIDERS: PCP Internal Medicine Adolescent Medicine; Visit Provider Internal Medicine Adolescent Medicine
DX: R91.1 Solitary pulmonary nodule (principal); R06.02 Shortness of breath; F17.200 Nicotine dependence, unspecified, uncomplicated
CPT/HCPCS: 71250; 93306

== ENCOUNTER 2025-07-20 09:08 | Outpatient (CLI) | payer BC, SELFPAY ==
--- OUTSIDE RECORDS SUMMARY | 2024-12-06 04:00 | XMS_ITS ---
Author Organization [facility] Address [address] [place] [address] Care Team Providers Care Varnish Dipper Name Role Phone Mary Toro Primary Care Provider REASON FOR VISIT Labs Encounters Encounter Location Date Provider Diagnosis [facility] [address] [place], [place] [address] 12/06/2024 Mary Toro Plan Of Treatment No Information Progress Notes * Francia PUENTESDOB:1970 (55 yo F)Acc No.[id number]:12/06/2024 LABS Patient: Francia MARTINEZ Danni Provider: DEMARCUS Castano :1970 A ge:54 Y S ex:Female Date:12/06/2024 Address:[address] [id number] Subjective: * Chief Complaints: * 1 . Labs. * Medical History: Objective: * Vitals: Assessment: Plan: * Treatment: * * Electronic signature of Jessica Toro APRN on 07/20/2025 at 09:20 AM EDT Sign off status: Pending * Provider: DEMARCUS Castano Date: 0 12/06/2024 Generated for Printi ng/Faxing/eTransmitting on: 1 09:20 AM EDT
--- OUTSIDE RECORDS SUMMARY | 2024-12-24 17:30 | XMS_ITS ---
Author Organization [facility] Address [address] [place] [address] Care Team Providers Care Evening Sitter Name Role Phone Mary Toro Primary Care Provider [phone] Migration, Provider Unavailable Unavailable Allergies Allergen (clinical drug ingredient) Drug/Non Drug Allergy documented on EMR Reaction Allergy Type Onset Date Status codeine Codeine Unknown Drug Allergy Active REASON FOR VISIT [facility] Encounter Medications Medication SIG (Take, [...] Active Encounters Encounter Location Date [facility] [address] [place] [address] 12/24/2024 Provider Migration Situational mixed anxiety and [...] replacement for e-prescription and drug interaction check* Progress Notes * Francia PUENTESDOB:1970 (55 yo F)Acc No.[id number]:12/24/2024 Patient: Luis Miguel JEFFRIESFrancia Provider: Rebeca Belle :1970 A ge:54 Y S ex:Female Date:12/24/2024 Address:[address] [place] [address] [facility] [id number] Pcp:Mary Toro Subjective: * Chief Complaints: * [...] Electronic signature of Pipo howard Migration on 07/20/2025 at 09:20 AM EDT Sign off status: Pending * Provider: Rebeca braswell Migration Date: 0 12/24/2024 Generated for Megha macdonald/Jus/Richarditting on: 1 09:20 AM EDT
--- OUTSIDE RECORDS SUMMARY | 2025-07-05 07:15 | XMS_ITS ---
Author Organization [facility] Address [address] [place] [address] Care Team Providers Care Journeyman Carpenter Name Role Phone Mary Toro Primary Care Provider Jose F Cade Unavailable [phone] REASON FOR VISIT feet swelling, other issues Encounters Encounter Location Date Provider Diagnosis [facility] [address] [place], [place] [address] 07/05/2025 Jose F Cade Plan Of Treatment No Information Progress Notes * Francia PUENTESDOB:1970 (55 yo F)Acc No.[id number]:07/05/2025 Progress Notes Patient: Francia MARTINEZ Provider: Tasha Cade MD :1970 A ge:55 Y S ex:Female Date:07/05/2025 Address:[address] [place], [id number] Pcp:Mary Toro Subjective: * Chief Complaints: * 1 . Feet swelling, other issues. * Medical History: Objective: * Vitals: Assessment: Plan: * Treatment: * * Electronic signature of Derrick Cade MD FAAP on 07/20/2025 at 09:20 AM EDT Sign off status: Pending * Provider: Tasha Cade MD Date: 1 Generated for Megha macdonald/Jus/eTransmitting on: 1 09:20 AM EDT
--- OUTSIDE RECORDS SUMMARY | 2025-07-17 12:00 | XMS_ITS ---
Author Organization [facility] D STEPHANIE Address [address] [place] [address] Care Team Providers Care Breastfeeding Peer Counselor Name Role Phone Mary Toro Primary Care Provider Jose F Cade [phone] Allergies Allergen (clinical drug ingredient) Drug/Non Drug Allergy documented on EMR Reaction Allergy Type Onset Date Status codeine Codeine Unknown Drug Allergy Active Results Component Value Reference Range Notes COMPREHENSIVE METABOLIC PANE L (68341) Reviewed date:07/19/2025 10:08:14 AM Interpretation: Performing Lab:TIAN, [facility] Sqdj5845 [facility], [facility] HospitalNivqFC[address] Anderson Gonzalez Notes/Report: NON-FASTING; NON-FASTING; NON-FASTING; NON-FASTING [...] Reviewed date:07/19/2025 10:07:29 AM Interpretation: Performing Lab:TIAN, [employer] Qrok4357 Wev[address]teSplick.it, YorderRlldHJ[address] Anderson Gonzalez Notes/Report: NON-FASTING; NON-FASTING; NON-FASTING; NON-FASTING MAGNESIUM 2.1 1.5-2.5 mg/dL CBC (INCLUDES DIFF/PLT) (639 9) Reviewed date:07/19/2025 10:07:35 AM Interpretation: Performing Lab:TIAN [employer] Gggf6194 [address] Prior Knowledge, YorderFyedVB[address] Anderson Gonzalez Notes/Report: NON-FASTING; NON-FASTING; NON-FASTING; NON-FASTING [...] RDW 12.8 11.0-15.0 % ABSOLUTE NEUTROPHILS 4665 8365-0156 cells/uL ABSOLUTE LYMPHOCYTES 5518 547-8830 cells/uL ABSOLUTE MONOCYTES 738 200-950 cells/uL ABSOLUTE EOSINOPHILS 270 15-500 cells/uL ABSOLUTE BASOPHILS 71 0-200 cells/uL NEUTROPHILS 65.7 LYMPHOCYTES 19.1 MONOCYTES 10.4 EOSINOPHILS 3.8 BASOPHILS 1.0 PLATELET COUNT TNP TEST(S) NOT PERFORMED: PLATELET COUNT Unable to report due to significant platelet clumping. PLATELET ESTIMATION ADEQUATE Platelet s clumped, appear adequate. HEMOGLOBIN A1c (496) Reviewed date:07/19/2025 10:07:18 AM Interpretation: Performing Lab:TIAN [employer] [address], [place] BlbiPH[address] Anderson Gonzalez Notes/Report: NON-FASTING; NON-FASTING; NON-FASTING; NON-FASTING [...] children. B TYPE NATRIURETIC PEPTIDE ( BNP) (34522) Reviewed date:07/19/2025 10:08:20 AM Interpretation: Performing Lab:TIAN [employer] Fkpp5006 [address] [facility], [place] TccgYK[address] Anderson Gonzalez Notes/Report: NON-FASTING B TYPE NATRIURETIC PEPTIDE (BNP) 104 <100 pg/mL BNP levels increase with age in the general population with the highest values seen in individuals greater than 75 years of age. Reference: J. Am. Shun. Cardiol. 2002; 40:976-982. TESTOSTERONE, [place], [place] (159 83) Reviewed date:07/19/2025 10:07:23 AM Interpretation: Performing Lab:Z3E, MedF[employer]-JveZhuqoh2804 [facility] [address], [address], QfhmymfkksQZ[address] Tami Le MD,PhD Notes/Report: NON-FASTING; NON-FASTING; NON-FASTING; NON-FASTING Reason For Referral Reason Echocardiogram and C T scan of chest-dyspnea with no gallop rhythm Diagnosis 1 Shortness of breath (R06.02) Referral Organization [facility]AM [facility]OWN Referring Provider First Name Jose F Referring Provider Last Name Alyssia Referring Provider Speciality Internal M edicine Referred Organization [facility] Referred Address [address], [place], [place],[address],[place] Referred Provider Specialty Diagnostic R adiology General Notes Rosa Malcolm 2024 09:22:08 AM >sent to [facility] approved and marked urgent Referral Priority Urgent [...] Status Risk Notes Problem Gastroesophageal reflux disease (163853981) GERD without esophagitis (K21.9) Active confirmed Vital Signs Temperature 98.0 degrees Fahrenheit 07/17/20 25 Blood pressure systolic 156 mm Hg 07/17/20 25 Blood pressure diastolic 84 mm Hg 025 Heart Rate 92 /min 07/17/2025 Height 62.5 in 07/17/2025 Weight 299 lbs 07/17/2025 BMI 53.81 kg/m2 07/17/2025 Encounters Encounter Location Date Provider Diagnosis [facility] [address] [facility] [address] [place] [address] 07/17/2025 Jose F Cade Prediabetes R73.03 ; [...] ordered. Greater than 30 minutes spent in evzh-yn-hsoi patient contact Plan Of Treatment Medication Medication [...] PA and Lateral 07/17/2025 TESTOSTERONE, [place], MS ([id number]) 2024 Referrals Referral Date Details 07/17/2025 07/17/2025, Echocard iogram and CT scan of chest-dyspnea with no gallop rhythm, [address], [place], [address], Next Appt Details Follow Up: prn, Reason: Progress Notes * Francia PUENTESB:1970 (55 yo F)Acc No.[id number]:07/17/2025 Progress Notes Patient: Francia MARTINEZ Provider: Tasha Cade MD :1970 A ge:55 Y S ex:Female Date:07/17/2025 Address:[address] [place] [address], [place], [id number] Pcp:Mary Toro Subjective: * Chief Complaints: * [...] stic Procedure: [facility], [facility]. * Family History: F ather: alive, diabetes, type II. M other: , hypertension, arthritis, [place]. P aternal Grand Father: . P aternal [...] yes. Travel outside [place]: yes, [place], [place], [facility]. 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 * Medications: T aking Naproxen 250 [...] *Please review and pick correct strength-formulation from [employer]span options. If intended option is not shown, [...] - % * A BSOLUTE NEUTROPHILS 4665 4130-1340 - cells/uL * L YMPHOCYTES 19.1 - % * A BSOLUTE LYMPHOCYTES 4994 086-6771 - cells/uL * M ONOCYTES 10.4 - [...] EDT ?LAB: B TYPE NATRIURETIC PEPTIDE (BNP) (35525)* Value Reference Range B TYPE NATRIURETIC 104 H <100 - pg/mL * This lab was reviewed by Rishi Malcolm on 07/19/2025 at 10:08 AM EDT ?LAB: TESTOSTERONE, [place], [place] ([id number]) Notes: A1c previously 5.8%. Will redo this. Check metabolic studies as noted??2.?Weight gain?LAB: COMPREHENSIVE METABOLIC PANEL (55748)* Value Reference Range G LUCOSE 88 65-99 [...] 10:07 AM EDT ?LAB: CBC (INCLUDES DIFF/PLT) (7274)* Value Reference Range W NAVJOT BLOOD CELL [...] - % * A BSOLUTE NEUTROPHILS 4665 3725-5240 - cells/uL * L YMPHOCYTES 19.1 - % * A BSOLUTE LYMPHOCYTES 3885 901-9802 - cells/uL * M ONOCYTES 10.4 - [...] EDT ?LAB: B TYPE NATRIURETIC PEPTIDE (BNP) (59513)* Value Reference Range B TYPE NATRIURETIC 104 H <100 - pg/mL * This lab was reviewed by Rishi Malcolm on 07/19/2025 at 10:08 AM EDT ?LAB: TESTOSTERONE, [place], [place] ([id number]) Notes: Check labs. Echocardiogram and CT scan to make sure were not dealing with new onset heart failure given the sudden changes in her exertion and the new gallop rhythm?? 3.?Shortness of breath?LAB: COMPREHENSIVE METABOLIC PANEL (64060)* Value Reference Range G LUCOSE 88 65-99 [...] 10:07 AM EDT ?LAB: CBC (INCLUDES DIFF/PLT) (9448)* Value Reference Range W NAVJOT BLOOD CELL [...] - % * A BSOLUTE NEUTROPHILS 4665 9663-4755 - cells/uL * L YMPHOCYTES 19.1 - % * A BSOLUTE LYMPHOCYTES 0451 226-8556 - cells/uL * M ONOCYTES 10.4 - [...] EDT ?LAB: B TYPE NATRIURETIC PEPTIDE (BNP) (70155)* Value Reference Range B TYPE NATRIURETIC 104 H <100 - pg/mL * This lab was reviewed by Rishi Malcolm on 07/19/2025 at 10:08 AM EDT ?LAB: TESTOSTERONE, [place], [place] ([id number]) ?Imaging: CT Scan : Chest, Without Contrast [...] ordered. Greater than 30 minutes spent in dbfo-ls-anlm patient contact?? * Immunizations: FLUCELVAX : 0.5 mL (Route: Intramuscular) given by Minal Earlywine , BNE on Left Deltoid * Labs: * L ab: TESTOSTERONE, [place], [place] (58378) * Procedure Codes: 9 0661 FLUCELVAX, 76431 immunization administration through 18 years of age via any route of administration. * Follow Up: p rn * * Sign off status: Completed true * Provider: Tasha Cade MD Date: Generated for Megha macdonald/Jus/eTransmitting on: 09:20 AM EDT History and Physical Notes * HPI [...]
--- OUTSIDE RECORDS SUMMARY | 2025-07-18 16:08 | XMS_ITS ---
Author Organization [facility] Address [address] [facility] [address] [place], [place] [address] Care Team Providers Care Security Tech Name Role Phone Muna, Mary Primary Care Provider Medications Medication SIG (Take, Route, Fr equency, Duration) Notes Start Date End Date Status Wegovy 0.25 MG/0.5ML 0.5 mL Subcutaneous weekly; Duration: 30 days 07/18/2025 Active Problems Problem Type SNOMED Code ICD Code Onset Dates Problem Status W/U Status Risk Notes Problem PORTER - Nonalcoholic steatohepatitis (173393411) Metabolic dysfunction-associ ated steatohepatitis (MASH) (K75.81) Active confirmed Problem Type 2 diabetes mellitus with other specified complication (E11.69) Active confirmed Problem Morbid obesity (disorder) (526195367) Morbid (severe) obesity due to excess calories (E66.01) Active confirmed Encounters Encounter Location Date Provider Diagnosis [facility] [address] [facility] [address] [place], [place] [address] 07/18/2025 Mary Toro Metabolic dysfunction-associated steatohepatitis (MASH) [...] MARTINEZ :1970 A ge:55 Y S ex:Female Address:[address] [place] [phone] * Refills Start Wegovy Solution Auto-injector, 0.25 [...] Date: Generated for Megha macdonald/Jus/Valentino on: 1 09:20 AM EDT
--- OUTSIDE RECORDS SUMMARY | 2025-07-19 06:08 | XMS_ITS ---
Author Organization [facility] Address [address] [facility] [address] [facility] [address] [place] [address] Care Team Providers Care Associate Professor Name Role Phone Mary Toro Primary Care Provider Jose F Cade [phone] REASON FOR VISIT liver us order Encounters Encounter Location Date Provider Diagnosis [facility] [address] [place] [address] 07/19/2025 Jose F Cade Elevated liver enzymes R74.8 Assessments Encounter Date Diagnosis (ICD Code) Assessment Notes Treatment Notes Treatment Clinical Notes Section Notes 07/19/2025 Elevated liver enzymes (ICD-10 - R74.8) Plan Of Treatment Pending Test Test Name Order Date Ultrasound : Liver 07/19/2025 Progress Notes * Francia PUENTESDOB:1970 (55 yo F)Acc No.[id number]:07/19/2025 Patient: Luis Miguel Francia JEFFRIES :1970 A ge:55 Y S ex:Female Address:[address] [place] [address] Subjective: * Chief Complaints: * L iver us order * Medical History: * Surgical History: * Hospitalization/Major Diagno stic Procedure: * Medications: Objective: * Vitals: * Physical Examination: Assessment: * Assessment: 1. E levated liver enzymes - R74.8 Plan: * Treatment: * * Procedure Codes: * true * Date: Generated for Megha macdonald/Jus/Valentino on: 09:20 AM EDT
--- NOTE | 2025-07-20 09:11 | US_ITS ---
FINAL REPORT CLINICAL HISTORY: ELEVATED LIVER ENZYMES COMPARISON: None FINDINGS: Sonographic images of the right upper quadrant were obtained. Difficult exam secondary to patient body habitus. The pancreas is partially obscured. Liver demonstrates increased echogenicity. The gallbladder appears normal without evidence of gallstones.There is no evidence of biliary ductal dilatation.The common duct measures 5 mm. Limited images of the right kidney are unremarkable. IMPRESSION: Fatty liver. Reviewed, Interpreted and Dictated by Fletcher Pozo MD Transcribed by Sandra Mauro Authenticated and [facility]
--- OUTSIDE RECORDS SUMMARY | 2025-07-20 09:20 | XMS_ITS | Patient Health Record ---
Author Organization [facility] STEPHANIE Address [address] [place] [address] Care Team Providers Care Environmental Systems Coordinator Name Role Phone Mary Toro Primary Care Provider Jose F Cade Unavailable [phone] Migration, Provider Unavailable Unavailable Allergies Allergen (clinical drug ingredient) Drug/Non Drug Allergy documented on EMR Reaction Allergy Type Onset Date Status codeine Codeine Unknown Drug Allergy Active Results Component Value Reference Range Notes TESTOSTERONE, TOTAL, MS (159 83) Reviewed date:07/19/2025 10:07:23 AM Interpretation: Performing Lab:Z3E, [facility] [place] [place] [address], [address], JhcbthqmavMK[address] Tami Le MD,PhD Notes/Report: NON-FASTING; NON-FASTING; NON-FASTING; NON-FASTING B TYPE NATRIURETIC PEPTIDE ( BNP) (50780) Reviewed date:07/19/2025 10:08:20 AM Interpretation: Performing Lab:TIAN [facility]ni [address] [facility] RapidsDhghVN[address] Anderson Gonzalez Notes/Report: NON-FASTING B TYPE NATRIURETIC PEPTIDE (BNP) 104 <100 pg/mL BNP levels increase with age in the general population with the highest values seen in individuals greater than 75 years of age. Reference: J. Am. Shun. Cardiol. 2002; 40:976-982. HEMOGLOBIN A1c (496) Reviewed date:07/19/2025 10:07:18 AM Interpretation: Performing Lab:TIAN [facility]-ponUp [address] [employer], [facility] HospitalKhmpXK[address] Anderson Gonzalez Notes/Report: NON-FASTING; NON-FASTING; NON-FASTING; NON-FASTING [...] A1c for diagnosis of diabetes for children. MAGNESIUM (622) Reviewed date:07/19/2025 10:07:29 AM Interpretation: Performing Lab:TIAN [facility]ponUp Qhqp[address]129 [address] [employer], Cook HospitalVnwiXF[address] Anderson Gonzalez Notes/Report: NON-FASTING; NON-FASTING; NON-FASTING; NON-FASTING MAGNESIUM 2.1 1.5-2.5 mg/dL [facility] ([address]131) Reviewed date:07/19/2025 10:08:14 AM Interpretation: Performing Lab:TIAN [facility]ponUp Oazr[address] [employer], Cook HospitalFqeyVT[address] Anderson Gonzalez Notes/Report: NON-FASTING; NON-FASTING; NON-FASTING; NON-FASTING [...] 134 10-35 U/L ALT 95 6-29 U/L CBC (INCLUDES DIFF/PLT) (639 9) Reviewed date:07/19/2025 10:07:35 AM Interpretation: Performing Lab:TIAN, [address], MedicAnimal.comNvkuTR[address] Anderson Gonzalez Notes/Report: NON-FASTING; NON-FASTING; NON-FASTING; NON-FASTING [...] RDW 12.8 11.0-15.0 % ABSOLUTE NEUTROPHILS 4665 3205-5246 cells/uL ABSOLUTE LYMPHOCYTES [phone] cells/uL ABSOLUTE MONOCYTES 738 200-950 cells/uL ABSOLUTE EOSINOPHILS 270 15-500 cells/uL ABSOLUTE BASOPHILS 71 0-200 cells/uL NEUTROPHILS 65.7 LYMPHOCYTES 19.1 MONOCYTES 10.4 EOSINOPHILS 3.8 BASOPHILS 1.0 PLATELET COUNT TNP TEST(S) NOT PERFORMED: PLATELET COUNT Unable to report due to significant platelet clumping. PLATELET ESTIMATION ADEQUATE Platelet s clumped, appear adequate. CBC (INCLUDES DIFF/PLT) (809 9) Reviewed date:12/09/2024 10:47:26 AM Interpretation: Performing Lab:TIAN, [facility]-ponUp [address], MedicAnimal.comCqinXQ[address] Anderson Gonzalez Notes/Report: NON-FASTING; NON-FASTING; NON-FASTING; NON-FASTING; [...] RDW 13.6 11.0-15.0 % ABSOLUTE NEUTROPHILS 3705 5380-1998 cells/uL ABSOLUTE LYMPHOCYTES [phone] cells/uL ABSOLUTE MONOCYTES 525 200-950 cells/uL ABSOLUTE EOSINOPHILS 201 15-500 cells/uL ABSOLUTE BASOPHILS 59 0-200 cells/uL NEUTROPHILS 62.8 LYMPHOCYTES 23.9 MONOCYTES 8.9 EOSINOPHILS 3.4 BASOPHILS 1.0 PLATELET COUNT TNP TEST(S) NOT PERFORMED: PLATELET COUNT Unable to report due to significant platelet clumping. PLATELET ESTIMATION ADEQUATE Platelet s clumped, appear adequate. CREATINE KINASE, TOTAL (374) Reviewed date:12/09/2024 10:47:26 AM Interpretation: Performing Lab:TIAN [facility]-[address], Cook HospitalAogvSZ[address] Anderson Gonzalez Notes/Report: NON-FASTING; NON-FASTING; NON-FASTING; NON-FASTING; NON-FAST FASTING:YES FASTING: YES CREATINE KINASE, TOTAL 77 21-240 U/L MAGNESIUM (622) Reviewed date:12/09/2024 10:47:26 AM Interpretation: Performing Lab:TIAN [facility], Club VenitQibxUT[address] Anderson Gonzalez Notes/Report: NON-FASTING; NON-FASTING; NON-FASTING; NON-FASTING; NON-FAST FASTING:YES FASTING: YES MAGNESIUM 2.2 1.5-2.5 mg/dL COMPREHENSIVE METABOLIC PANE L (77792) Reviewed date:12/09/2024 10:47:26 AM Interpretation: Performing Lab:TIAN [facility]-ponUp Xtna[address]Os[address], Cook HospitalBpthAW[address] Anderson Gonzalez Notes/Report: NON-FASTING; NON-FASTING; NON-FASTING; NON-FASTING; [...] 56 10-35 U/L ALT 62 6-29 U/L LIPID PANEL, STANDARD (7600) Reviewed date:12/09/2024 10:47:26 AM Interpretation: Performing Lab:TIAN [facility]-ponUp Ekbl[address]376 [address] [facility], [facility] RapidsNqceCG[address] Anderson Gonzalez Notes/Report: NON-FASTING; NON-FASTING; NON-FASTING; NON-FASTING; NON-FAST FASTING:YES FASTING: YES CHOLESTEROL, TOTAL 224 <200 mg/dL HDL CHOLESTEROL 66 > OR = 50 mg/dL TRIGLYCERIDES 114 <150 mg/dL LDL-CHOLESTEROL 136 Reference range: <100 Desirable range <100 mg/dL for primary prevention; <70 mg/dL for patients with CHD or diabetic patients with > or = 2 CHD risk factors. LDL-C is now calculated using the Arun calculation, which is a validated novel method providing better accuracy than the Friedewald equation in the estimation of LDL-C. Luís OH et al. ELENA. 2013;310(19): 5023-1523 (http://[employer]/faq/FAQ16 4) CHOL/HDLC RATIO 3.4 <5.0 (calc) NON HDL CHOLESTEROL 158 <130 mg/dL (calc) For patients with diabetes plus 1 major ASCVD risk factor, treating to a non-HDL-C goal of <100 mg/dL (LDL-C of <70 mg/dL) is considered a therapeutic option. HEPATITIS PANEL, GENERAL (64 62) Reviewed date:12/09/2024 10:47:25 AM Interpretation: Performing Lab:TIAN, [facility]Up [address], ponUp JejyRR[address] Anderson Gonzalez Notes/Report: NON-FASTING; NON-FASTING; NON-FASTING; NON-FASTING; NON-FAST FASTING:YES FASTING: YES HEPATITIS A AB, TOTAL REACTIVE NON-REACTIVE For additional information, please refer to http://[employer]/faq/BLJ625 (This link is being provided for informational/ educational purposes only.) HEPATITIS B SURFACE ANTIBODY QL NON-REACTIVE NON-REACTIVE HEPATITIS B SURFACE ANTIGEN NON-REACTIVE NON-REACTIVE For additional information, please refer to http://[employer]/faq/SBU733 (This link is being provided for informational/ educational purposes only.) HEPATITIS B CORE AB TOTAL NON-REACTIVE NON-REACTIVE For additional information, please refer to http://[employer]/faq/GVN331 (This link is being provided for informational/ educational purposes only.) HEPATITIS C ANTIBODY NON-REACTIVE NON-REACTIVE HCV antibody was non-reactive. There is no laboratory evidence of HCV infection. In most cases, no further action is required. However, if recent HCV exposure is suspected, a test for HCV RNA (test code 99819) is suggested. For additional information please refer to http://[employer]/faq/FAQ22v 1 (This link is being provided for informational/ educational purposes only.) Mammogram: Screening Reviewed date:01/20/2025 10:23:15 AM Interpretation: Performing Lab: Notes/Report: CT Scan : Chest, Lung Cancer Screening Reviewed date:01/17/2025 09:14:22 AM Interpretation: Performing Lab: Notes/Report: CT Scan : Chest, Lung Cancer Screening Reviewed date:01/17/2025 09:14:22 AM Interpretation: Performing Lab: Notes/Report: HEMOGLOBIN A1c (496) Reviewed date:12/09/2024 10:47:26 AM Interpretation: Performing Lab:TIAN [facility]-ponUp [address], MedicAnimal.comAzinNU[address] Anderson Gonzalez Notes/Report: NON-FASTING; NON-FASTING; NON-FASTING; NON-FASTING; [...] diabetes for children. TSH W/REFLEX TO FT4 (47715) Reviewed date:12/09/2024 10:47:26 AM Interpretation: Performing Lab:TIAN [facility]-ponUp [address] [place], MedicAnimal.comQkkqSK[address] Anderson Gonzalez Notes/Report: NON-FASTING; NON-FASTING; NON-FASTING; NON-FASTING; NON-FAST FASTING:YES FASTING: YES TSH W/REFLEX TO FT4 2.90 0.40-4.50 mIU/L VITAMIN D,25-OH,TOTAL,IA (17 306) Reviewed date:12/09/2024 10:47:26 AM Interpretation: Performing Lab:TIAN [facility]-[address], [place] EnvironmentalUjkdAX[address] Anderson Gonzalez Notes/Report: NON-FASTING; NON-FASTING; NON-FASTING; NON-FASTING; [...] D, (D2,D3), LC/MS/MS is recommended: order code 59737 (patients >2yrs). See Note 1 Note 1 For additional information, please refer to http://education.[employer]/faq/RAQ399 (This link is being provided for informational/ educational purposes only.) TEST AUTHORIZATION Reviewed date:12/08/2024 08:00:55 AM Interpretation: Performing Lab:TIAN [facility]-Gianni [address]ft[address] [facility], [facility] RapidsZvifPH[address] Anderson Gonzalez Notes/Report: NON-FASTING; NON-FASTING; NON-FASTING; NON-FASTING; NON-FAST FASTING:YES FASTING: YES TEST NAME: HEPATITIS PANEL, GENERAL TEST CODE: 6462SB CLIENT CONTACT: KEREN EATON IOP REPORT ALWAYS MESSAGE SIGNATURE The laboratory testing on this patient was verbally requested or confirmed by the ordering physician or his or her authorized collections representative after contact with an employee of [employer]. Federal regulations require that we maintain on file written authorization for all laboratory testing. Accordingly we are asking that the ordering physician or his or her authorized collections representative sign a copy of this report and promptly return it to the retail client solutions consultant. Signature: COMMENT Please fax this signed form to [phone]. Please do not attempt to return this document by other methods. Documents will not be viewed by a collections representative. Please do not use this fax number for other service requests. Reason For Referral Reason Mamm, LDCT chest Diagnosis 1 Routine medical exam (Z00.00) Referral Organization [facility] Referring Provider First Name Mary Referring Provider Last Name Muna Referring Provider Speciality Family Pra ctice Referred Organization [facility] Referred Address [address] [place],[address],[place] Referred Provider Specialty Diagnostic R adiology General Notes Rosa Malcolm 2024 09:44:59 AM >Faxed to [facility] to schedule with [facility] Referral Priority Routine Referral Appointment Date 12/23/2024 Reason Echocardiogram and C T scan of chest-dyspnea with no gallop rhythm Diagnosis 1 Shortness of breath (R06.02) Referral Organization [facility] STE[place]IE Referring Provider First Name Jose F Referring Provider Last Name Shirahair Referring Provider Speciality Internal M edicine Referred Organization [facility] Referred Address [address] [place],[address],[place] Referred Provider Specialty Diagnostic R adiology General Notes Rosa Malcolm 2024 09:22:08 AM >sent to [facility] approved and marked urgent Referral [...] Vaccine Route Administration Date Status Comme nts Adacel (Tdap) IM Intramuscular 11/05/2010 Administered Flublok [...] (E11.69) Active confirmed Problem Morbid obesity (disorder) (425523833) Morbid (severe) obesity due to excess calories (E66.01) Active confirmed Problem Tobacco use (956976308) Tobacco use (Z72.0) Active confirmed Problem Mixed anxiety and depressive disorder (763638352) Depression with anxiety (F41.8) Active confirmed Problem Body mass index 40+ - severely obese (555906211) BMI 45.0-49.9, adult (Z68.42) Active confirmed Problem Gastroesophageal reflux disease (633506746) GERD without esophagitis (K21.9) Active confirmed Problem Body mass index 40+ - morbidly obese (519994270) BMI 40.0-44.9, adult (Z68.41) Active confirmed Problem Adjustment disorder with mixed emotional features (39476902) Situational mixed anxiety and depressive disorder (F43.23) Active confirmed Problem Thrombocytopenia (157125425) Thrombocytopenia (D69.6) Active confirmed Problem Insomnia disorder related to another mental disorder (90146092) Psychophysiological insomnia (F51.04) Active confirmed Problem Reactive depression (situational) (02591304) Situational depression (F43.21) Active confirmed Problem Hyperlipidaemia (05940864) Hyperlipidemia, unspecified hyperlipidemia type (E78.5) Active confirmed Problem History of thrombocytopenia (29516059691543) History of thrombocytopenia (Z86.2) Active confirmed Problem Moderate major depression, single episode (92299802) Current moderate episode of major depressive disorder without prior episode (F32.1) Active confirmed Problem PORTER - Nonalcoholic steatohepatitis (117261463) 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) Active confirmed Vital Signs Heart Rate 92 /min 07/17/2025 Temperature 98.0 degrees Fahrenheit 07/17/2025 Oximetry 97 12/05/2024 Blood pressure diastolic 84 mm Hg 07/17/2025 Height 62.5 in 07/17/2025 Blood pressure systolic 156 mm Hg 07/17/2025 Weight 299 lbs 07/17/2025 BMI 53.81 kg/m2 07/17/2025 Encounters Encounter Location Date Provider Diagnosis [facility] [place] [address] [facility] [address] [place] [address] 12/06/2024 Mary Toro [facility] [place] [address] [place] [address] 12/24/2024 Provider Migration Situational mixed anxiety and depressive disorder F43.23 and Tobacco use Z72.0 [facility] [place] [address] [place] [address] 12/05/2024 Mary Toro Routine medical exam Z00.00 ; Visit for screening mammogram Z12.31 ; Personal history of tobacco use Z87.891 ; Colon cancer screening Z12.11 ; Murmur R01.1 ; Situational mixed anxiety and depressive disorder F43.23 ; Tobacco use Z72.0 ; BMI 45.0-49.9, adult Z68.42 ; Weight loss counseling, encounter for Z71.3 ; Myalgia M79.10 and SOB (shortness of breath) R06.02 [facility] [place] [address] [place] [address] 07/17/2025 Jose F Cade Prediabetes R73.03 ; Weight gain R63.5 ; Shortness of breath R06.02 ; Right leg pain M79.604 ; Encounter for immunization Z23 and GERD without esophagitis K21.9 [facility] [place] [address] [place] [address] 12/08/2024 Mary Kongence [facility] [place] [address] [place] [address] 07/18/2025 Mary Muna Metabolic dysfunction-associated steatohepatitis (MASH) K75.81 ; Type 2 diabetes mellitus with other specified complication E11.69 and Morbid (severe) obesity due to excess calories E66.01 [facility] [place] [address] [place] [address] 07/19/2025 Jose F Cade Elevated liver enzym [...] history of tobacco use (ICD-10 - Z87.891) 07/17/2025 Right leg pain (ICD-10 - M79.604) Check x-ray 12/05/2024 Colon cancer screening (ICD-10 - Z12.11) 07/17/2025 Encounter for immunization (ICD-10 - Z23) 12/05/2024 Murmur (ICD-10 - R01.1) consider echo, cost may be a factor 12/24/2024 Situational mixed anxiety and depressive disorder (ICD-10 - F43.23) 07/17/2025 GERD without esophagitis (ICD-10 - K21.9) Trial of PPI 12/05/2024 Situational mixed anxiety and depressive disorder (ICD-10 - F43.23) 12/05/2024 Tobacco use (ICD-10 - Z72.0) chantix trial as noted, possible s/e and return precautions reviewed 12/24/2024 Tobacco use (ICD-10 - Z72.0) 12/05/2024 BMI 45.0-49.9, adult (ICD-10 - Z68.42) [...] ordered. Greater than 30 minutes spent in qybp-qu-hmyy patient contact Plan Of Treatment Pending Test Test Name Order Date CT Scan : Chest, Without Contrast 2024 X ray : Tib/Fib, Right 07/17/2025 Ultrasound : Liver 07/19/2025 Echocardiogram 07/17/2025 H-URINE CULTURE 08/04/2011 C-LIPASE 08/26/2017 C-CBC 08/26/2017 C-CMP 08/26/2017 C-CMP 11/15/2020 C-LIPID PANEL 11/15/2020 C-AMYLASE 08/26/2017 C-URINE CULTURE 02/01/2015 X ray : Chest PA and Lateral 07/17/2025 TESTOSTERONE, TOTAL, MS ([id number]) 2024 Insurance Providers Payer Name Payer Address Payer Phone Subscriber Number Group Number Insured Name Patient Relationship to Insured Coverage Start Date Coverage End Date [employer] [address] [place] [address] [id number] Francia Mcdonald Self - patient is the insured Medical (General) History Medical History History ICD Code anxiety Chronic thrombocytopenia, seen by hemato logy 2013 Obesity Tobacco use Surgical History Surgery Date(Month/Year) x 2 Hospitalization History Reason Date(Month/Year) [facility] 1997 [facility] 1992
--- OUTSIDE RECORDS SUMMARY | 2025-07-20 09:21 | XMS_ITS | Data Portability ---
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 Plan of Treatment Reminders Order Date Submit Date Provider Last Modified By Organization Details Last Modified Time Details Appointments None recorded. Lab vitamin D, 25-hydroxy, total, serum 2023 024 [email or web address] [facility], [address], [address], [place], [address], 4 10:58:58 vitamin A (retinol), serum 2023 024 [email or web address] [facility], [address], [address], [place], [address], 4 10:58:58 vitamin E, serum 2023 024 [email or web address] [facility], [address], [address], [place], [address], 4 10:58:58 PTH (parathyroi d hormone), intact, serum or plasma 2023 024 [email or web address] [facility], [address], [address], [place], [address], 4 10:58:58 CBC w/ auto diff 2023 024 [email or web address] [facility], [address], [address], [place], [address], 4 10:58:58 CMP, serum or plasma 2023 024 [email or web address] [facility], [address], [address], [place], [address], 4 10:58:59 HbA1c (hemoglobin A1c), blood 2023 024 [email or web address] [facility], [address], [address], [place], [address], 4 10:58:59 iron + TIBC + ferritin, serum 2023 024 [email or web address] [facility], [address], [address], [place], [address], 4 10:58:59 lipid panel, serum 2023 024 [email or web address] [facility], [address], [address], [place], [address], 4 10:58:59 TSH + free T4, serum 2023 024 [email or web address] [facility], [address], [address], [place], [address], 4 10:58:59 folate, serum 2023 024 [email or web address] [facility], [address], [address], [place], [address], 4 10:58:59 methylmalon ate, QN, serum or plasma 2023 024 [email or web address] [facility], [address], [address], [place], [address], 4 10:59:00 thiamine, QN, blood 2023 024 [facility], [address], [address], [place], [address], 4 10:59:00 Referral None recorded. Procedures None recorded. Surgeries esophagogas troduodenos copy (SURG) 2023 024 [email or web address] Davon Bales MD, [address], [address], [place], [address], 5 10:09:14 Imaging XR, chest, 2 view [address] (Centralized Scheduling), [address] , [place], [address], 4 12:37:47 electrocard iogram, routine ECG, 12 leads min [address] (Registration ), [address] , [place], [address], 4 12:37:47 Medication Orders None recorded. Patient Targets Encounter Date Encounter Id Patient Goals Patient Target Last Modified By Organization Details Last Modified Time 06/02/2024 [id number] 1. Eat 3 meals a day 2. Download [employer] and start keeping food records 3. Review manual for meal and snack ideas 4. Look for food triggers and replace with healthy snacks 5. Wean off soft drinks and replace with water 6. Physical activity 3 times a week [email or web address] Not available 06/02/2024 13:10:55 Patient InstructionsNo instructions recorded. Reason for Referral None Reported. Results Created Date Observation Date Name Description Value Unit Range Abnormal Flag Note LastModifiedBy Organization Detail LastModifiedTime 06/02/20 24 06/03/2024 FE+TI BC+FE R iron bind.cap.(TI BC) 326 ug/dL 250-45 0 normal Not Available [facility] ([facility]) [address] [place], [address], 06/18/2024 12:36:18 06/02/2006/03/2024 FE+TI BC+FE R UIBC 238 ug/dL 131-42 5 normal Not Available [facility] ([facility]) [address] [place], [address], 06/18/2024 12:36:18 06/02/2006/03/2024 FE+TI BC+FE R iron 88 ug/dL 27-159 normal Not Available [facility] ([facility]) [address] [place], [address], 06/18/2024 12:36:18 06/02/20 24 06/03/2024 FE+TI BC+FE R iron saturation 27 % 15-55 normal Not Available [facility] ([facility]) [address] [place], [address], 06/18/2024 12:36:18 06/02/2006/03/2024 FE+TI BC+FE R ferritin 497 NG/mL 15-150 above high normal Not Available [facility] ([facility]) [address] [place], [address], 06/18/2024 12:36:18 06/02/2006/03/2024 TSH+F REE T4 TSH 1.920 uIU/m L 0.450- 4.500 normal Not Available [facility] ([facility]) [address] [place], [address], 06/18/2024 12:36:18 06/02/2006/03/2024 TSH+F REE T4 T4,free(dire ct) 1.16 NG/dL 0.82-1 .77 normal Not Available [facility] ([facility]) [address] [place], [address], 06/18/2024 12:36:18 06/02/20 24 06/03/2024 CBC WITH DIFFE RENTI AL/PL ATELE T WBC 6.9 x10e3 /uL 3.4-10 .8 normal Not Available [facility] ([facility]) [address] [place], [address], 06/18/2024 12:36:19 06/02/2006/03/2024 CBC WITH DIFFE RENTI AL/PL ATELE T RBC 4.80 x10e6 /uL 3.77-5 .28 normal Not Available [facility] ([facility]) [address] [place], [address], 06/18/2024 12:36:19 06/02/2006/03/2024 CBC WITH DIFFE RENTI AL/PL ATELE T hemoglobin 16.4 g/dL 11.1-1 5.9 above high normal Not Available [facility] ([facility]) [address] [place], [address], 06/18/2024 12:36:19 06/02/2006/03/2024 CBC WITH DIFFE RENTI AL/PL ATELE T hematocrit 49.3 % 34.0-4 6.6 above high normal Not Available [facility] ([facility]) [address] [place], [address], 06/18/2024 12:36:19 06/02/2006/03/2024 CBC WITH DIFFE RENTI AL/PL ATELE T MCV 103 fL 79-97 above high normal Not Available [facility] ([facility]) [address] [place], [address], 06/18/2024 12:36:19 06/02/2006/03/2024 CBC WITH DIFFE RENTI AL/PL ATELE T MCH 34.2 pg 26.6-3 3.0 above high normal Not Available [facility] ([facility]) [address] [place], [address], 06/18/2024 12:36:19 06/02/20 24 06/03/2024 CBC WITH DIFFE RENTI AL/PL ATELE T MCHC 33.3 g/dL 31.5-3 5.7 normal Not Available [facility] ([facility]) [address] [place], [address], 06/18/2024 12:36:19 06/02/20 24 06/03/2024 CBC WITH DIFFE RENTI AL/PL ATELE T RDW 12.6 % 11.7-1 5.4 Not Available [facility] ([facility]) [address] [place], [address], 06/18/2024 12:36:19 06/02/20 24 06/03/2024 CBC WITH DIFFE RENTI AL/PL ATELE T platelets TNP x10e3 /uL Unabl e to perfo rm an accur ate plate let count due to aggre gatio n of the plate lets. Not Available [facility] ([facility]) [address] [place], [address], 06/18/2024 12:36:19 06/02/20 24 06/03/2024 CBC WITH DIFFE RENTI AL/PL ATELE T neutrophils 64 % not estab. normal Not Available [facility] ([facility]) [address] [place], [address], 06/18/2024 12:36:19 06/02/20 24 06/03/2024 CBC WITH DIFFE RENTI AL/PL ATELE T lymphs 24 % not estab. normal Not Available [facility] ([facility]) [address] [place], [address], 06/18/2024 12:36:19 06/02/20 24 06/03/2024 CBC WITH DIFFE RENTI AL/PL ATELE T monocytes 8 % not estab. normal Not Available [facility] ([facility]) [address] [place], [address], 06/18/2024 12:36:19 06/02/20 24 06/03/2024 CBC WITH DIFFE RENTI AL/PL ATELE T eos 3 % not estab. normal Not Available [facility] ([facility]) [address] [facility], [place], [address], 06/18/2024 12:36:19 06/02/20 24 06/03/2024 CBC WITH DIFFE RENTI AL/PL ATELE T basos 1 % not estab. normal Not Available [facility] ([facility]) [address] [place], [address], 06/18/2024 12:36:19 06/02/20 24 06/03/2024 CBC WITH DIFFE RENTI AL/PL ATELE T immature cells COO Not Available [facility] ([facility]) [address] [place], [address], 06/18/2024 12:36:19 06/02/20 24 06/03/2024 CBC WITH DIFFE RENTI AL/PL ATELE T neutrophils (absolute) 4.4 x10e3 /uL 1.4-7. 0 normal Not Available [facility] ([facility]) [address] [place], [address], 06/18/2024 12:36:19 06/02/20 24 06/03/2024 CBC WITH DIFFE RENTI AL/PL ATELE T lymphs (absolute) 1.7 x10e3 /uL 0.7-3. 1 normal Not Available [facility] ([facility]) [address] [place], [address], 06/18/2024 12:36:19 06/02/20 24 06/03/2024 CBC WITH DIFFE RENTI AL/PL ATELE T monocytes(ab solute) 0.5 x10e3 /uL 0.1-0. 9 normal Not Available [facility] ([facility]) [address] [facility] [place], [address], 06/18/2024 12:36:19 06/02/20 24 06/03/2024 CBC WITH DIFFE RENTI AL/PL ATELE T eos (absolute) 0.2 x10e3 /uL 0.0-0. 4 normal Not Available [facility] ([facility]) [address] [facility], [place], [address], 06/18/2024 12:36:19 06/02/20 24 06/03/2024 CBC WITH DIFFE RENTI AL/PL ATELE T baso (absolute) 0.1 x10e3 /uL 0.0-0. 2 normal Not Available [facility] ([facility]) [address] [facility], [place], [address], 06/18/2024 12:36:19 06/02/20 24 06/03/2024 CBC WITH DIFFE RENTI AL/PL ATELE T immature granulocytes 0 % not estab. Not Available [facility] ([facility]) [address] [facility], [place], [address], 06/18/2024 12:36:19 06/02/20 24 06/03/2024 CBC WITH DIFFE RENTI AL/PL ATELE T immature grans (abs) 0.0 x10e3 /uL 0.0-0. 1 Not Available [facility] ([facility]) [address] [facility], [place], [address], 06/18/2024 12:36:19 06/02/20 24 06/03/2024 CBC WITH DIFFE RENTI AL/PL ATELE T NRBC COO Not Available [facility] ([facility]) [address] [facility], [place], [address], 06/18/2024 12:36:19 06/02/20 24 06/03/2024 CBC WITH DIFFE RENTI AL/PL ATELE T hematology comments: NOTE: Verif ied by felix rivera natio n. Not Available [facility] ([facility]) [address] [facility] [place], [address], 06/18/2024 12:36:19 06/02/20 24 06/03/2024 COMP. METAB OLIC PANEL (14) glucose 96 mg/dL 70-99 normal Not Available [facility] ([facility]) [address] [facility] [place], [address], 06/18/2024 12:36:19 06/02/20 24 06/03/2024 COMP. METAB OLIC PANEL (14) BUN 6 mg/dL 6-24 normal Not Available [facility] ([facility]) [address] [facility] [place], [address], 06/18/2024 12:36:19 06/02/20 24 06/03/2024 COMP. METAB OLIC PANEL (14) creatinine 0.83 mg/dL 0.57-1 .00 normal Not Available [facility] ([facility]) [address] [facility] [place], [address], 06/18/2024 12:36:19 06/02/20 24 06/03/2024 COMP. METAB OLIC PANEL (14) eGFR 83 mL/mi n/1.7 3 >59 normal Not Available [facility] ([facility]) [address] [facility] [place], [address], 06/18/2024 12:36:19 06/02/20 24 06/03/2024 COMP. METAB OLIC PANEL (14) BUN/creatini ne ratio 7 9-23 below low normal Not Available [facility] ([facility]) [address] [facility] [place], [address], 06/18/2024 12:36:19 06/02/20 24 06/03/2024 COMP. METAB OLIC PANEL (14) sodium 138 mmol/ L 134-14 4 normal Not Available [facility] ([facility]) [address] [facility] [place], [address], 06/18/2024 12:36:19 06/02/20 24 06/03/2024 COMP. METAB OLIC PANEL (14) potassium 4.8 mmol/ L 3.5-5. 2 normal Not Available [facility] ([facility]) [address] [facility], [place], [address], 06/18/2024 12:36:19 06/02/20 24 06/03/2024 COMP. METAB OLIC PANEL (14) chloride 99 mmol/ L 96-106 normal Not Available [facility] ([facility]) [address] [facility], [place], [address], 06/18/2024 12:36:19 06/02/20 24 06/03/2024 COMP. METAB OLIC PANEL (14) carbon dioxide, total 24 mmol/ L 20-29 normal Not Available [facility] ([facility]) [address] [facility] [place], [address], 06/18/2024 12:36:19 06/02/20 24 06/03/2024 COMP. METAB OLIC PANEL (14) calcium 9.6 mg/dL 8.7-10 .2 normal Not Available [facility] ([facility]) [address] [facility], [place], [address], 06/18/2024 12:36:19 06/02/20 24 06/03/2024 COMP. METAB OLIC PANEL (14) protein, total 7.8 g/dL 6.0-8. 5 normal Not Available [facility] ([facility]) [address] [facility] [place], [address], 06/18/2024 12:36:19 06/02/20 24 06/03/2024 COMP. METAB OLIC PANEL (14) albumin 4.2 g/dL 3.8-4. 9 normal Not Available [facility] ([facility]) [address] [facility] [place], [address], 06/18/2024 12:36:19 06/02/20 24 06/03/2024 COMP. METAB OLIC PANEL (14) globulin, total 3.6 g/dL 1.5-4. 5 Not Available [facility] ([facility]) [address] [facility] [place], [address], 06/18/2024 12:36:19 06/02/20 24 06/03/2024 COMP. METAB OLIC PANEL (14) bilirubin, total 0.6 mg/dL 0.0-1. 2 normal Not Available [facility] ([facility]) [address] [place], [address], 06/18/2024 12:36:19 06/02/20 24 06/03/2024 COMP. METAB OLIC PANEL (14) alkaline phosphatase 90 IU/L 44-121 normal Not Available [facility] ([facility]) [address] [facility] [place], [address], 06/18/2024 12:36:19 06/02/20 24 06/03/2024 COMP. METAB OLIC PANEL (14) AST (SGOT) 83 IU/L 0-40 above high normal Not Available [facility] ([facility]) [address] [facility] [place], [address], 06/18/2024 12:36:19 06/02/20 24 06/03/2024 COMP. METAB OLIC PANEL (14) ALT (SGPT) 61 IU/L 0-32 above high normal Not Available [facility] ([facility]) [address] [facility] [place], [address], 06/18/2024 12:36:19 06/02/20 24 06/03/2024 LIPID PANEL cholesterol, total 247 mg/dL 100-19 9 above high normal Not Available [facility] ([facility]) [address] [facility] [place], [address], 06/18/2024 12:36:20 06/02/20 24 06/03/2024 LIPID PANEL triglyceride s 103 mg/dL 0-149 normal Not Available [facility] ([facility]) [address] [facility] [place], [address], 06/18/2024 12:36:20 06/02/20 24 06/03/2024 LIPID PANEL HDL cholesterol 67 mg/dL >39 normal Not Available [facility] ([facility]) [address] [facility] [place], [address], 06/18/2024 12:36:20 06/02/20 24 06/03/2024 LIPID PANEL VLDL cholesterol alon 18 mg/dL 5-40 Not Available [facility] ([facility]) [address] [facility] [place], [address], 06/18/2024 12:36:20 06/02/20 24 06/03/2024 LIPID PANEL LDL chol calc ([facility]) 162 mg/dL 0-99 above high normal Not Available [facility] ([facility]) [address] [place], [address], 06/18/2024 12:36:20 06/02/20 24 06/03/2024 LIPID PANEL LDL calc comment: COO Not Available [facility] ([facility]) [address] [facility], [place], [address], 06/18/2024 12:36:20 06/02/20 24 06/12/2024 VITAM IN [...] in E defic ient. Not Available [facility] ([facility]) [address] [place], [address], 06/18/2024 12:36:20 06/02/20 24 06/18/2024 VITAM IN E vitamin E(alpha tocopherol) 11.4 mg/L 7.0-25 .1 Not Available [facility] ([facility]) [address] [facility], [place], [address], 06/18/2024 12:36:20 06/02/20 24 06/03/2024 HEMOG LOBIN A1C hemoglobin A1C 6.1 % 4.8-5. 6 above high normal Predi abete s: 5.7 - 6.4 Diabe rajan: >6.4 Glyce robyn contr ol for adult s with diabe rajan: <7.0 Not Available [facility] ([facility]) [address] [facility], [place], [address], 06/18/2024 12:36:21 06/02/20 24 06/03/2024 FOLAT E (FOLI C ACID) , SERUM folate (folic acid), serum 2.2 NG/mL >3.0 below low normal A serum folat e fatemeh ntrat ion of less than 3.1 ng/mL is consi dered to repre sent clini alon defic iency . Not Available [facility] ([facility]) [address] [facility], [place], [address], 06/18/2024 12:36:21 06/02/20 24 06/12/2024 VITAM IN [...] Drug Admin istra tion. Not Available [facility] ([facility]) [address] [facility], [place], [address], 06/18/2024 12:36:21 06/02/20 24 06/03/2024 VITAM IN [...] intak es for calci um and D. Dainne arceo [place]: The [facility] . 2. Chayo jo MF, Jorge leyva [place], Aurea off-F errar i HERNANDEZ, et al. Evalu ation , treat ment, and preve ntion of vitam in D defic iency : an Endoc rine Socie ty clini alon pract ice guide line. JCEM. 2010; 96(7) :1911 -30. Not Available [facility] ([facility]) [address] [facility], [place], [address], 06/18/2024 12:36:22 06/02/20 24 06/06/2024 VITAM IN B1 (THIA MINE) , BLOOD vit. B1, whole blood 107.0 nmol/ L 66.5-2 00.0 Not Available [facility] ([facility]) [address] [facility], [place], [address], 06/18/2024 12:36:22 06/02/20 24 06/07/2024 METHY LMALO ROBERTA ACID, SERUM methylmaloni c acid, serum 223 nmol/ L 0-378 Not Available [facility] ([facility]) [address] [facility], [place], [address], 06/18/2024 12:36:23 06/02/20 24 06/03/2024 PTH, INTAC T PTH, intact 43 pg/mL 15-65 normal Not Available [facility] ([facility]) [address], [place], [address], 06/18/2024 12:36:23 Result Notes None recorded. Problems Name Problem SNOMED Code Status Onset Date Resolution Date Notes Provider Name and Address Organization Details Recorded Time Anxiety 75085872 Active 2023 Drew Francis DNP, CLINIC COORDINATOR, COO-C [address], [place], [place], [address] [place] [address] , [facility] & [place] 4 10:37:25 Insomnia 204830740 Active 2023 Drew Francis DNP, APRN, COO-C [address], [place], [place], [address] [place] [address] , [facility] & [place] 4 10:37:33 Morbid obesity 524646774 Active 2023 Drew Francis DNP, APRN, COO-C [address], [place], [place], [address] [place] [address] , [facility] & [place] 4 10:37:54 Tobacco user 507248589 Active 2023 Drew Francis DNP, APRN, COO-C [address] , [place], [place], [address] [place] [address] , [facility] & [place] 4 10:38:04 Elevated blood-pressur e reading without diagnosis of hypertension 551295095 Active 2023 Drew Francis DNP, CLINIC COORDINATOR, COO-C [address] [facility], [place], [place], [address] [place] [address] , [facility] & [place] 4 10:38:27 Heartburn 78668929 Active 2023 Drew Francis DNP, CLINIC COORDINATOR, COO-C [address], [place], [address] , [facility] & [place] 4 10:38:44 Problem Notes None recorded. Procedures Surgical History Date Name Laterality Status Provider Name and Address Organization Details Recorded Time section completed Drew Francis, DNP, CLINIC COORDINATOR, COO-C [address], [place], [address], [facility] & [place] 06/02/2024 10:25:49 extraction of wisdom tooth completed Madyson Arenas [facility] & [place] 06/01/2024 14:24:49 Imaging Results None recorded. Procedure Notes None recorded. Medical Equipment None Reported. Allergies Allergen ID Allergen Name Allergen Category Reaction Reaction Severity Criticality Documentation Date Start Date Code Code System Note Provider Name and Address Organization Details Recorded Time 99232 codeine medicatio n Not available Not available Not available 07/14/2023 2670 RxNorm [facility] & [place] 3 13:43:50 Medications Name Sig Start Date [...] Updated DateTime 4 157.48 cm 50.6 kg/m2 845494. 29 g 97.8 [degF] 79 /min 163/95 mm[Hg] Yoli Saavedra [facility] & [place] 07:56:53 Social History Question Answer Notes LastModified by Organizat ion Details LastModified Time Tobacco Smoking Status Current Every Day Smoker Lindsay Juarez [facility], [facility] & [place] 07/14/2023 13:47:53 What Is Your Level Of Caffeine Consumption? Moderate [email or web address] Information not available 07/14/2023 What Type Of Diet Are You Following? REGULAR [email or web address] Information not available 07/14/2023 How Much Tobacco Do You Smoke? 1 PPD [email or web address] Information not available 07/14/2023 How Many Years Have You Smoked Tobacco? 40 [email or web address] Information not available 07/14/2023 Sex: Unknown Functional Status Question Answer Note LastModified by Organizat ion Details LastModified Time Do you use any illicit or recreational drugs? No [email or web address] Information not available 07/14/2023 What is your level of alcohol consumption? Occasional [email or web address] Information not available 07/14/2023 What is your exercise level? Occasional [email or web address] Information not available 07/14/2023 Mental Status None recorded. Family History Relationship Description Onset Age of this Age Resolved Age Notes LastModified by Organization Details LastModified Time Mother Myocardial infarction 62 [email or web address] Not available 13:45:37 Mother Obese [email or web address] Not availab le 06/01/2024 14:25:52 Mother Hypertensive disorder [email or web address] Not available 07/2024 14:26:08 Mother Heart disease Not available 07/2024 14:26:21 Father Diabetes mellitus [email or web address] Not available 10/2 12/2022 13:45:48 Father Hypertensive disorder [email or web address] Not available 07/2024 14:26:08 Paternal Grandmother Obese [email or web address] Not available 0 06/01/2024 14:25:52 Maternal Grandfather Chronic obstructive pulmonary disease [email or web address] Not available 07/2024 14:26:34 Medical History Condition Response Anxiety Disorder Y Other Y Kidney Stones Y Reflux/GERD Y Headaches Y Varicosities Y Hypertension Y Depression Y GI Problems Y Gynecological HistoryNo gynecological history recorded. Obstetrics History GPAL:G 0 P 0 0 0 0 Immunizations Vaccine Type Date Status Note Provider Nam e and Address Organization Details Recorded Time influenza, unspecified formulation 06/17/2023 completed [facility] & [place] 06/02/2024 07:58:26 Past Encounters Encounter ID Performer Location Encounter Start Date Encounter Closed Date Diagnosis/Indication Diagnosis SNOMED-CT Code Diagnosis ICD10 Code Diagnosis IMO Codes Diagnosis Note [id number] Drew Francis, DNP, CLINIC COORDINATOR, COO-C [facility] [address] [facility] [address] [place] [address] 06/02/2024 07:45:01 06/02/2024 11:10:39 Obesity 317053864 E66.9 The patient will be scheduled for [...] completed 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 Pre-surger y evaluation 736831547 Z01.818 Obesity screening 231773 005 Z13.89 Anxiety 41706741 F41.9 Insomnia 500737397 G47.0 0 Elevated blood-pressure reading without diagnosis of hypertension 833457991 R03.0 Heartburn 70181490 R12 Morbid obesity 031345283 E66.01 Tobacco user 256048369 Z 72.[id number], LD [facility] [address] [place] [address] 06/02/2024 10:53:22 06/02/2024 13:11:39 Morbid obesity 251138592 E66.01 BMI 50.6 Health Concerns Section Related Observation LastModified by Organization Detai ls LastModified Time None Recorded Concern Status LastModified by Organization Details LastModified Time None Recorded Advance Directives Directive None Recorded Payers Insurance Date Sequence Insurance Name Policy Number Policy Mauricio Covered Member ID Mauricio Member ID Guarantor Name 11/07/2024 1 [place] [id number] Francia Mcdonald [id number] Francia Mcdonald Notes Date Note Type [...] hunger, boredom and loneliness. Drew Francis, DNP, CLINIC COORDINATOR, COO-C [address] [facility], [place], [address], [facility] - [place] & [place] 06/02/2024 10:40:20 06/02/2024 text/html Intake Template RDN [...] TINY MARTINEZ RD, LD [address], [place], [address], [facility] - [place] & [place] 06/02/2024 13:11:08 OBGyn Episode No OBEpisode recorded.
== END 2025-07-20 23:59 | disposition home or self-care (01) ==
LOC: RAD 09:08
PROVIDERS: PCP Internal Medicine Adolescent Medicine; Visit Provider Internal Medicine Adolescent Medicine
DX: K76.0 Fatty (change of) liver, not elsewhere classified (principal); R74.8 Abnormal levels of other serum enzymes
CPT/HCPCS: 76705

== ENCOUNTER 2025-07-27 08:51 | Outpatient (CLI) | payer BC, SELFPAY ==
--- OUTSIDE RECORDS SUMMARY | 2024-12-06 03:00 | XMS_ITS ---
Author Organization [facility] Address [address] [place], [place] [address] Care Team Providers Care Compensation Coordinator Name Role Phone Mary Toro Primary Care Provider REASON FOR VISIT Labs Encounters Encounter Location Date Provider Diagnosis [facility] [address] [place], [place] [address] 12/06/2024 Mary Toro Plan Of Treatment Next Appt Details Provider Name:Jose F Cade, 07/31/2025 11:45:00 AM, [address], [address], [place], [place], [address], Progress Notes * Francia PUENTESDOB:1970 (55 yo F)Acc No.[id number]:12/06/2024 LABS Patient: Luis Miguel Francia JEFFRIES Provider: DEMARCUS Castano :1970 A ge:54 Y S ex:Female Date:12/06/2024 Address:[address] [id number] Subjective: * Chief Complaints: * 1 . Labs. * Medical History: Objective: * Vitals: Assessment: Plan: * Treatment: * * Electronic signature of Jessica Toro APRN on 07/27/2025 at 09:05 AM EST Sign off status: Pending * Provider: DEMARCUS Castano Date: 0 12/06/2024 Generated for Megha macdonald/Jus/Valentino on: 1 09/26/2024 09:05 AM EST
--- OUTSIDE RECORDS SUMMARY | 2024-12-24 16:30 | XMS_ITS ---
Author Organization [facility] Address [address] [place] [address] Care Team Providers Care Contract Negotiator Name Role Phone Mary Toro Primary Care Provider [phone] Migration, Provider Unavailable Unavailable Allergies Allergen (clinical drug ingredient) Drug/Non Drug Allergy documented on EMR Reaction Allergy Type Onset Date Status codeine Codeine Unknown Drug Allergy Active REASON FOR VISIT [facility] Encounter Medications Medication SIG (Take, Route, Frequency, Duration) Notes Start Date End Date Status ZEPBOUND PEN 2.5 MG/0.5 ML 2.5 MG SUBCUTANEOUSLY ONCE A WEEK; Duration: 28 DAYS *Please review for potential replacement for e-prescription and drug interaction check* 12/08/2024 Active Citalopram Hydrobromide 20 MG 1 tab(s) orally once a day; Duration: 90 days Active VARENICLINE STARTER PACK 0.5 MG-1 MG DIRECTED ORALLY TWICE A DAY; Duration: 28 DAYS *Please review for potential replacement for e-prescription and drug interaction check* 12/05/2024 Active Famotidine 20 MG 1 tab(s) orally at bedtime Active Mirena (52 MG) 52 MG 1 EA BY INTRAUTERINE ADMINISTRATION ONCE *Please review and pick correct strength-formulati on from Medispan options. If intended option is not shown, discontinue and re-order from Quick Search* Active Encounters Encounter Location Date Provider Diagnosis [facility] [address] [place] [address] 12/24/2024 Provider Migration Situational mixed anxiety and depressive disorder F43.23 and Tobacco use Z72.0 Assessments Encounter Date Diagnosis (ICD Code) Assessment Notes Treatment Notes Treatment Clinical Notes Section Notes 12/24/2024 Situational mixed anxiety and depressive disorder (ICD-10 - F43.23) 12/24/2024 Tobacco use (ICD-10 - Z72.0) Plan Of Treatment Medication Medication Name Sig Start Date Stop Date Notes ZEPBOUND PEN 2.5 MG/0.5 ML 2.5 MG SUBCUTANEOUSLY ONCE A WEEK; Duration: 28 DAYS 12/08/2024 *Please review for potential replacement for e-prescription and drug interaction check* Citalopram Hydrobromide 20 MG 1 tab(s) orally once a day; Duration: 90 days VARENICLINE STARTER PACK 0.5 MG-1 MG DIRECTED ORALLY TWICE A DAY; Duration: 28 DAYS 12/05/2024 *Please review for potential replacement for e-prescription and drug interaction check* Next Appt Details Provider Name:Jose F Silvahair, 07/31/2025 11:45:00 AM, [address] [facility] [address] [facility], [address], [place], [address], Progress Notes * Francia PUENTESDOB:1970 (55 yo F)Acc No.[id number]:12/24/2024 Patient: Francia MARTINEZ Provider: Rebeca braswell Migration :1970 A ge:54 Y S ex:Female Date:12/24/2024 Address:[address] [place], [place] [id number] Pcp:Mary Toro Subjective: * Chief Complaints: * 1 . Multum To Medispan Conversion Encounter. * Medical History: * Medications: T aking Mirena (52 MG) 52 MG DEVICE 1 EA BY INTRAUTERINE ADMINISTRATION ONCE , Notes to Pharmacist: *Please review and pick correct strength-formulation from Medispan options. If intended option is not shown, discontinue and re-order from Quick Search*, Taking Famotidine 20 MG Tablet 1 tab(s) orally at bedtime * Allergies: C odeine. Objective: * Vitals: Assessment: * Assessment: 1. S ituational mixed anxiety and depressive disorder - F43.23 2 . T obacco use - Z72.0 Plan: * Treatment: 2. T obacco use Start VARENICLINE STARTER PACK TABLET, 0.5 MG-1 MG, DIRECTED, ORALLY, TWICE A DAY, 28 DAYS, 1 PACK, Refills 0, Notes to Pharmacist: *Please review for potential replacement for e-prescription and drug interaction check*. 3. O thers Start ZEPBOUND PEN SOLUTION, 2.5 MG/0.5 ML, 2.5 MG, SUBCUTANEOUSLY, ONCE A WEEK, 28 DAYS, 2 ML, Refills 0, Notes to Pharmacist: *Please review for potential replacement for e-prescription and drug interaction check*. * * Electronic signature of Pipo howard Migration on 07/27/2025 at 09:06 AM EST Sign off status: Pending * Provider: Rebeca braswell Migration Date: 0 12/24/2024 Generated for Megha macdonald/Jus/Valentino on: 09/26/2024 09:06 AM EST
--- OUTSIDE RECORDS SUMMARY | 2025-07-05 06:15 | XMS_ITS ---
Author Organization [facility] Address [address] [facility] [address] [facility] [address] [place], [place] [address] Care Team Providers Care Bindery Machine Setter Name Role Phone Mary Troo Primary Care Provider Jose F Cade Unavailable [phone] REASON FOR VISIT feet swelling, other issues Encounters Encounter Location Date Provider Diagnosis [facility] [address] [place], [place] [address] 07/05/2025 Jose F Cade Plan Of Treatment Next Appt Details Provider Name:Jose F Cade, 07/31/2025 11:45:00 AM, [address], [address], [place], [place], [address], Progress Notes * Francia PUENTESDOB:1970 (55 yo F)Acc No.[id number]:07/05/2025 Progress Notes Patient: Luis Miguel Francia JEFFRIES Provider: Tasha Cade MD :1970 A ge:55 Y S ex:Female Date:07/05/2025 Address:[address] [place] [id number] Pcp:Mary Toro Subjective: * Chief Complaints: * 1 . Feet swelling, other issues. * Medical History: Objective: * Vitals: Assessment: Plan: * Treatment: * * Electronic signature of Derrick Cade MD FAAP on 07/27/2025 at 09:06 AM EST Sign off status: Pending * Provider: Tasha Cade MD Date: Generated for Megha macdonald/Jus/Valentino on: 09/26/2024 09:06 AM EST
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
--- OUTSIDE RECORDS SUMMARY | 2025-07-18 15:08 | XMS_ITS ---
Author Organization [facility] Address [address] [place] [address] [facility] [address] [place], [place] [address] Care Team Providers Care Registered Nurse Hh Case Manager Name Role Phone Muna, Mary Primary Care Provider Medications Medication SIG (Take, Route, Fr equency, Duration) Notes Start Date End Date Status Wegovy 0.25 MG/0.5ML 0.5 mL Subcutaneous weekly; Duration: 30 days 07/18/2025 Active Problems Problem Type SNOMED Code ICD Code Onset Dates Problem Status W/U Status Risk Notes Problem PORTER - Nonalcoholic steatohepatitis (166901591) Metabolic dysfunction-associ ated steatohepatitis (MASH) (K75.81) Active confirmed Problem Type 2 diabetes mellitus with other specified complication (E11.69) Active confirmed Problem Morbid obesity (disorder) (798122317) Morbid (severe) obesity due to excess calories (E66.01) Active confirmed Encounters Encounter Location Date Provider Diagnosis [facility] [address] [place] [address] [facility] [address] [place], [place] [address] 07/18/2025 Mary Toro Metabolic dysfunction-associated steatohepatitis (MASH) K75.81 ; Type 2 diabetes mellitus with other specified complication E11.69 and Morbid (severe) obesity due to excess calories E66.01 Assessments Encounter Date Diagnosis (ICD Code) Assessment Notes Treatment Notes Treatment Clinical Notes Section Notes 07/18/2025 Metabolic dysfunction-associat ed steatohepatitis (MASH) (ICD-10 - K75.81) 07/18/2025 Type 2 diabetes mellitus with other specified complication (ICD-10 - E11.69) 07/18/2025 Morbid (severe) obesity due to excess calories (ICD-10 - E66.01) Plan Of Treatment Medication Medication Name Sig Start Date Stop Date Notes Wegovy 0.25 MG/0.5ML 0.5 mL Subcutaneous weekly; Duration: 30 days 07/18/2025 Next Appt Details Provider Name:Jose F Cade, 07/31/2025 11:45:00 AM, [address] [place] [facility] [address] [facility], [address], [place], [address], Progress Notes * Francia PUENTESDOB:1970 (55 yo F)Acc No.[id number]:07/18/2025 Patient: Francia MARTINEZ :1970 A ge:55 Y S ex:Female Address:[address] [place] [address] * Refills Start Wegovy Solution Auto-injector, 0.25 MG/0.5ML, Subcutaneous, 4, 0.5 mL, weekly, 30 days, Refills=1 Subjective: * Chief Complaints: * * Medical History: * Surgical History: * Hospitalization/Major Diagno stic Procedure: * Medications: Objective: * Vitals: * Physical Examination: Assessment: * Assessment: 1. M etabolic dysfunction-associated steatohepatitis (MASH) - K75.81 (Primary) 2 . T ype 2 diabetes mellitus with other specified complication - E11.69 3 .?Morbid (severe) obesity due to excess calories - E66.01 Plan: * Treatment: * Procedure Codes: * true * Date: Generated for Megha macdonald/Jus/eTjoannasmitting on: 09/26/2024 09:06 AM EST
--- OUTSIDE RECORDS SUMMARY | 2025-07-19 05:08 | XMS_ITS ---
Author Organization [facility] Address [address] [facility] [address] [place] [address] Care Team Providers Care Field Operations Coordinator Name Role Phone Mary Toro Primary Care Provider [phone] Jose F Cade [phone] Results Component Value Reference Range Notes Ultrasound : Liver Reviewed date:07/24/2025 07:57:54 PM Interpretation: Performing Lab: Notes/Report: REASON FOR VISIT liver us order Encounters Encounter Location Date Provider Diagnosis [facility] [address] [facility] [address] [place], [place] [address] 07/19/2025 Jose F Beshair Elevated liver enzymes R74.8 Assessments Encounter Date Diagnosis (ICD Code) Assessment Notes Treatment Notes Treatment Clinical Notes Section Notes 07/19/2025 Elevated liver enzymes (ICD-10 - R74.8) Plan Of Treatment Next Appt Details Provider Name:Jose F Cade, 07/31/2025 11:45:00 AM, [address] [facility], [address], [place], [address], Progress Notes * Francia PUENTESDOB:1970 (55 yo F)Acc No.[id number]:07/19/2025 Patient: Francia MARTINEZ :1970 A ge:55 Y S ex:Female Address:[address], [place] [address] Subjective: * Chief Complaints: * L iver us order * Medical History: * Surgical History: * Hospitalization/Major Diagno stic Procedure: * Medications: Objective: * Vitals: * Physical Examination: Assessment: * Assessment: 1. E levated liver enzymes - R74.8 Plan: * Treatment: * * Procedure Codes: * true * Date: Generated for Megha macdonald/Jus/Deliasmitting on: 09/26/2024 09:06 AM EST
--- NOTE | 2025-07-27 08:53 | XR_ITS ---
FINAL REPORT CLINICAL HISTORY: right fibular fx 07/16 COMPARISON: 07/17/2025 FINDINGS: AP, oblique, and lateral views of the right ankle were obtained. There is no significant change in the fracture of the lateral malleolus since the prior exam of 07/17/2025. No significant callus formation is identified. Mild degenerative changes of the ankle are noted. Soft tissue swelling persists. IMPRESSION: No significant change in the fracture of the lateral malleolus, without significant callus formation since the prior exam of 07/17/2025. Reviewed, Interpreted and Dictated by Oneyda Gonzalez MD Transcribed by Dalia Garcia Authenticated and [facility]
--- OUTSIDE RECORDS SUMMARY | 2025-07-27 09:06 | XMS_ITS | Patient Health Record ---
Author Organization [facility] STEPHANIE Address [address] [place] [address] Care Team Providers Care [address] Bailiff Name Role Phone Mary Toro Primary Care Provider [phone] Jose F Cade Unavailable [phone] Migration, Provider Unavailable Unavailable Allergies Allergen (clinical drug ingredient) Drug/Non Drug Allergy documented on EMR Reaction Allergy Type Onset Date Status codeine Codeine Unknown Drug Allergy Active Results Component Value Reference Range Notes TESTOSTERONE, TOTAL, MS (159 83) Reviewed date:07/21/2025 12:02:01 PM Interpretation: Performing Lab:[facility]-[address] [address], [address] HospitalXwswrpmhijAK[address] Tami Le MD,PhD Notes/Report: NON-FASTING; NON-FASTING; NON-FASTING; NON-FASTING TESTOSTERONE, TOTAL, MS 73 2-45 ng/dL This test was developed and its analytical performance characteristics have been determined by [facility]. It has not been cleared or approved by the FDA. This assay has been validated pursuant to the CLIA regulations and is used for clinical purposes. [facility] [address] [address],[address] [facility] [address] Tami Le MD, PhD For additional information, please refer to https://education.Criers Podium.Emergent Views/faq/Total TestosteroneLCMSMS (This link is being provided for informational/educationa l purposes only.) (Note) COMPREHENSIVE METABOLIC PANE L (49508) Reviewed date:07/19/2025 10:08:14 AM Interpretation: Performing Lab:TIAN [employer] [address] [facility], [facility] CitiesYaolBJ[address] Anderson Gonzalez Notes/Report: NON-FASTING; NON-FASTING; NON-FASTING; NON-FASTING [...] Reviewed date:07/19/2025 10:07:29 AM Interpretation: Performing Lab:TIAN [facility] TechnologiesLakes [facility] Centere[address]55 [address] [facility], [facility] CitiesPwwaJY[address] Anderson Gonzalez Notes/Report: NON-FASTING; NON-FASTING; NON-FASTING; NON-FASTING MAGNESIUM 2.1 1.5-2.5 mg/dL CBC (INCLUDES DIFF/PLT) (639 9) Reviewed date:07/19/2025 10:07:35 AM Interpretation: Performing Lab:TIAN [facility] Mcav3360 [employer] [facility], [facility] CitiesTywoHN[address] Anderson Gonzalez Notes/Report: NON-FASTING; NON-FASTING; NON-FASTING; NON-FASTING [...] RDW 12.8 11.0-15.0 % ABSOLUTE NEUTROPHILS 4665 9218-2659 cells/uL ABSOLUTE LYMPHOCYTES 2695 024-1970 cells/uL ABSOLUTE MONOCYTES 738 200-950 cells/uL ABSOLUTE EOSINOPHILS 270 15-500 cells/uL ABSOLUTE BASOPHILS 71 0-200 cells/uL NEUTROPHILS 65.7 LYMPHOCYTES 19.1 MONOCYTES 10.4 EOSINOPHILS 3.8 BASOPHILS 1.0 PLATELET COUNT TNP TEST(S) NOT PERFORMED: PLATELET COUNT Unable to report due to significant platelet clumping. PLATELET ESTIMATION ADEQUATE Platelet s clumped, appear adequate. HEMOGLOBIN A1c (496) Reviewed date:07/19/2025 10:07:18 AM Interpretation: Performing Lab:TIAN [employer]-[facility] [address], achvrDktnGY[address] Anderson Gonzalez Notes/Report: NON-FASTING; NON-FASTING; NON-FASTING; NON-FASTING [...] children. B TYPE NATRIURETIC PEPTIDE ( BNP) (08971) Reviewed date:07/19/2025 10:08:20 AM Interpretation: Performing Lab:TIAN [employer]-[facility] [address] [employer], achvrThlaOR[address] Anderson Gonzalez Notes/Report: NON-FASTING B TYPE NATRIURETIC PEPTIDE (BNP) 104 <100 pg/mL BNP levels increase with age in the general population with the highest values seen in individuals greater than 75 years of age. Reference: J. Am. Shun. Cardiol. 2002; 40:976-982. Ultrasound : Liver Reviewed date:07/24/2025 07:57:54 PM Interpretation: Performing Lab: Notes/Report: CT Scan : Chest, Without Con trast Reviewed date:07/21/2025 05:47:47 PM Interpretation: Performing Lab: Notes/Report: COMPREHENSIVE METABOLIC PANE L (78551) Reviewed date:12/09/2024 10:47:26 AM Interpretation: Performing Lab:CB, [facility]-[place] Ow[address] [facility] ClinicMbtcNR[address] Anderson Gonzalez Notes/Report: NON-FASTING; NON-FASTING; NON-FASTING; NON-FASTING; [...] Reviewed date:12/09/2024 10:47:26 AM Interpretation: Performing Lab:TIAN [employer]-Wood [address], [place] CeukDA[address] Anderson Gonzalez Notes/Report: NON-FASTING; NON-FASTING; NON-FASTING; NON-FASTING; NON-FAST FASTING:YES FASTING: YES MAGNESIUM 2.2 1.5-2.5 mg/dL CREATINE KINASE, TOTAL (374) Reviewed date:12/09/2024 10:47:26 AM Interpretation: Performing Lab:TIAN [employer] [address], [place] RmtcLV[address] Anderson Gonzalez Notes/Report: NON-FASTING; NON-FASTING; NON-FASTING; NON-FASTING; NON-FAST FASTING:YES FASTING: YES CREATINE KINASE, TOTAL 77 21-240 U/L HEMOGLOBIN A1c (496) Reviewed date:12/09/2024 10:47:26 AM Interpretation: Performing Lab:TIAN [employer] Sdbo[address] [facility], Gianni MontgomeryBnyuHK[address] Anderson Gonzalez Notes/Report: NON-FASTING; NON-FASTING; NON-FASTING; NON-FASTING; [...] diabetes for children. TSH W/REFLEX TO FT4 (80810) Reviewed date:12/09/2024 10:47:26 AM Interpretation: Performing Lab:TIAN [employer] [address], [place] ZdyqOE[address] Anderson Gonzalez Notes/Report: NON-FASTING; NON-FASTING; NON-FASTING; NON-FASTING; NON-FAST FASTING:YES FASTING: YES TSH W/REFLEX TO FT4 2.90 0.40-4.50 mIU/L VITAMIN D,25-OH,TOTAL,IA (17 306) Reviewed date:12/09/2024 10:47:26 AM Interpretation: Performing Lab:TIAN [employer] Enmj[address] [employer], [place] OtfgUN[address] Anderson Gonzalez Notes/Report: NON-FASTING; NON-FASTING; NON-FASTING; NON-FASTING; [...] D, (D2,D3), LC/MS/MS is recommended: order code 18882 (patients >2yrs). See Note 1 Note 1 For additional information, please refer to http://Filter Squad.Nevolution/faq/BDL769 (This link is being provided for informational/ educational purposes only.) CT Scan : Chest, Lung Cancer Screening Reviewed date:01/17/2025 09:14:22 AM Interpretation: Performing Lab: Notes/Report: CT Scan : Chest, Lung Cancer Screening Reviewed date:01/17/2025 09:14:22 AM Interpretation: Performing Lab: Notes/Report: Mammogram: Screening Reviewed date:01/20/2025 10:23:15 AM Interpretation: Performing Lab: Notes/Report: HEPATITIS PANEL, GENERAL (64 62) Reviewed date:12/09/2024 10:47:25 AM Interpretation: Performing Lab:TIAN [employer] [address], [place] YyhcJF[address] Anderson Gonzalez Notes/Report: NON-FASTING; NON-FASTING; NON-FASTING; NON-FASTING; NON-FAST FASTING:YES FASTING: YES HEPATITIS A AB, TOTAL REACTIVE NON-REACTIVE For additional information, please refer to http://NanoPowers/faq/COP711 (This link is being provided for informational/ educational purposes only.) HEPATITIS B SURFACE ANTIBODY QL NON-REACTIVE NON-REACTIVE HEPATITIS B SURFACE ANTIGEN NON-REACTIVE NON-REACTIVE For additional information, please refer to http://Filter Squad.20/20 [employer]faq/IIH425 (This link is being provided for informational/ educational purposes only.) HEPATITIS B CORE AB TOTAL NON-REACTIVE NON-REACTIVE For additional information, please refer to http://NanoPowers/faq/ZBD456 (This link is being provided for informational/ educational purposes only.) HEPATITIS C ANTIBODY NON-REACTIVE NON-REACTIVE HCV antibody was non-reactive. There is no laboratory evidence of HCV infection. In most cases, no further action is required. However, if recent HCV exposure is suspected, a test for HCV RNA (test code 35596) is suggested. For additional information please refer to http://NanoPowers/faq/FAQ22v 1 (This link is being provided for informational/ educational purposes only.) LIPID PANEL, STANDARD (7600) Reviewed date:12/09/2024 10:47:26 AM Interpretation: Performing Lab:TIAN [employer]-[place] Arhe[address] [facility], [place] MlmtUZ[address] Anderson Gonzalez Notes/Report: NON-FASTING; NON-FASTING; NON-FASTING; NON-FASTING; [...] LDL-C. Luís OH et al. ELENA. 2013;310(19): 7040-0658 (http://education.JobSlot/faq/FAQ16 4) CHOL/HDLC RATIO 3.4 <5.0 (calc) NON HDL CHOLESTEROL 158 <130 mg/dL (calc) For patients with diabetes plus 1 major ASCVD risk factor, treating to a non-HDL-C goal of <100 mg/dL (LDL-C of <70 mg/dL) is considered a therapeutic option. CBC (INCLUDES DIFF/PLT) (9 9) Reviewed date:12/09/2024 10:47:26 AM Interpretation: Performing Lab:TIAN [employer]-[place] Htbi[address]252 [facility], [facility] CitiesWiqwMR[address] Anderson Gonzalez Notes/Report: NON-FASTING; NON-FASTING; NON-FASTING; NON-FASTING; [...] RDW 13.6 11.0-15.0 % ABSOLUTE NEUTROPHILS 3705 5452-3969 cells/uL ABSOLUTE LYMPHOCYTES 3847 816-4906 cells/uL ABSOLUTE MONOCYTES 525 200-950 cells/uL ABSOLUTE EOSINOPHILS 201 15-500 cells/uL ABSOLUTE BASOPHILS 59 0-200 cells/uL NEUTROPHILS 62.8 LYMPHOCYTES 23.9 MONOCYTES 8.9 EOSINOPHILS 3.4 BASOPHILS 1.0 PLATELET COUNT TNP TEST(S) NOT PERFORMED: PLATELET COUNT Unable to report due to significant platelet clumping. PLATELET ESTIMATION ADEQUATE Platelet s clumped, appear adequate. TEST AUTHORIZATION Reviewed date:12/08/2024 08:00:55 AM Interpretation: Performing Lab:TIAN [employer]-[place] Rkgb1917 [facility] Centerte[facility], [place] [facility] HospitalUonpLY[address] Anderson Gonzalez Notes/Report: NON-FASTING; NON-FASTING; NON-FASTING; NON-FASTING; NON-FAST FASTING:YES FASTING: YES TEST NAME: HEPATITIS PANEL, GENERAL TEST CODE: 6462SB CLIENT CONTACT: KEREN EATON IOP REPORT ALWAYS MESSAGE SIGNATURE The laboratory testing on this patient was verbally requested or confirmed by the ordering physician or his or her authorized passenger service representative after contact with an employee of [employer]. Federal regulations require that we maintain on file written authorization for all laboratory testing. Accordingly we are asking that the ordering physician or his or her authorized passenger service representative sign a copy of this report and promptly return it to the client experience manager. Signature: COMMENT Please fax this signed form to [phone]. Please do not attempt to return this document by other methods. Documents will not be viewed by a passenger service representative. Please do not use this fax number for other service requests. Reason For Referral Reason Mamm, LDCT chest Diagnosis 1 Routine medical exam (Z00.00) Referral Organization [facility] MEGHNA Referring Provider First Name Mary Referring Provider Last Name Muna Referring Provider Speciality [facility] ctice Referred Organization [facility] Referred Address [address] [place] [id number], Referred Provider Specialty Diagnostic R adiology General Notes Rosa Malcolm 2024 09:44:59 AM >Faxed to [facility] to schedule with auths Referral Priority Routine Referral Appointment Date 12/23/2024 Reason Echocardiogram and C T scan of chest-dyspnea with no gallop rhythm Diagnosis 1 Shortness of breath (R06.02) Referral Organization [facility] STEPHANIE Referring Provider First Name Jose F Referring Provider Last Name Alyssia Referring Provider Speciality Internal M edicine Referred Organization [facility] Referred Address [address] [place] [address], Referred Provider Specialty Diagnostic R adiology General Notes Rosa Malcolm 2024 09:22:08 AM >sent to [facility] approved and marked urgent Referral [...] (E11.69) Active confirmed Problem Morbid obesity (disorder) (866856214) Morbid (severe) obesity due to excess calories (E66.01) Active confirmed Problem Tobacco use (711640337) Tobacco use (Z72.0) Active confirmed Problem Mixed anxiety and depressive disorder (601376364) Depression with anxiety (F41.8) Active confirmed Problem Body mass index 40+ - severely obese (729416402) BMI 45.0-49.9, adult (Z68.42) Active confirmed Problem Gastroesophageal reflux disease (177949385) GERD without esophagitis (K21.9) Active confirmed Problem Body mass index 40+ - morbidly obese (071490316) BMI 40.0-44.9, adult (Z68.41) Active confirmed Problem Adjustment disorder with mixed emotional features (46053175) Situational mixed anxiety and depressive disorder (F43.23) Active confirmed Problem Thrombocytopenia (936617299) Thrombocytopenia (D69.6) Active confirmed Problem Insomnia disorder related to another mental disorder (70556392) Psychophysiological insomnia (F51.04) Active confirmed Problem Reactive depression (situational) (59248156) Situational depression (F43.21) Active confirmed Problem Hyperlipidaemia (67079214) Hyperlipidemia, unspecified hyperlipidemia type (E78.5) Active confirmed Problem History of thrombocytopenia (74836009685009) History of thrombocytopenia (Z86.2) Active confirmed Problem Moderate major depression, single episode (55436790) Current moderate episode of major depressive disorder without prior episode (F32.1) Active confirmed Problem PORTER - Nonalcoholic steatohepatitis (453470519) 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 [address] 12/24/2024 Provider Migration Situational mixed anxiety and depressive disorder F43.23 and Tobacco use Z72.0 [facility] [address] [facility] [address] [place], [employer] [address] 12/05/2024 Mary Kongence Routine medical exam Z00.00 ; Visit for screening mammogram Z12.31 ; Personal history of tobacco use Z87.891 ; Colon cancer screening Z12.11 ; Murmur R01.1 ; Situational mixed anxiety and depressive disorder F43.23 ; Tobacco use Z72.0 ; BMI 45.0-49.9, adult Z68.42 ; Weight loss counseling, encounter for Z71.3 ; Myalgia M79.10 and SOB (shortness of breath) R06.02 [facility] [address] [place] [address] 07/17/2025 Jose Fsantana Cade Prediabetes R73.03 ; Weight gain R63.5 ; Shortness of breath R06.02 ; Right leg pain M79.604 ; Encounter for immunization Z23 and GERD without esophagitis K21.9 [facility] [address] [facility] [address] [place], [employer] [address] 12/08/2024 [facility] [address] [place] [address] 07/18/2025 Mary Toro Metabolic dysfunction-associated steatohepatitis (MASH) K75.81 ; Type 2 diabetes mellitus with other specified complication E11.69 and Morbid (severe) obesity due to excess calories E66.01 [facility] [address] [place] [address] 07/19/2025 Jose F Cade Elevated liver enzym [...] ordered. Greater than 30 minutes spent in etbu-en-xrlw patient contact Plan Of Treatment Pending Test Test Name Order Date X ray : Tib/Fib, Right 07/17/2025 Echocardiogram 07/17/2025 H-URINE CULTURE 08/04/2011 C-LIPASE 08/26/2017 C-CBC 08/26/2017 C-CMP 11/15/2020 C-CMP 08/26/2017 C-LIPID PANEL 11/15/2020 C-AMYLASE 08/26/2017 C-URINE CULTURE 02/01/2015 X ray : Chest PA and Lateral 07/17/2025 TESTOSTERONE, TOTAL, MS (35077C5) 2024 Next Appt Details Provider Name:Jose F Cade, 07/31/2025 11:45:00 AM, [address], [place], [address], Insurance Providers Payer Name Payer Address Payer Phone Subscriber Number Group Number Insured Name Patient Relationship to Insured Coverage Start Date Coverage End Date [facility] [address] [place] [address] [id number] Francia Mcdonald Self - patient is the insured Medical (General) History Medical History History ICD Code anxiety Chronic thrombocytopenia, seen by hemato logy 2013 Obesity Tobacco use Surgical History Surgery Date(Month/Year) x 2 Hospitalization History Reason Date(Month/Year) [facility]- Child [address] [facility]- Child 1992
== END 2025-07-27 23:59 | disposition home or self-care (01) ==
LOC: RAD 08:51
PROVIDERS: PCP Internal Medicine Adolescent Medicine; Visit Provider Physician Assistant Surgical
DX: S82.61XD Displaced fracture of lateral malleolus of right fibula, subsequent encounter for closed fracture with routine healing (principal); X58.XXXD Exposure to other specified factors, subsequent encounter
CPT/HCPCS: 73610

== ENCOUNTER 2025-08-21 09:12 | Outpatient (CLI) | payer BC, SELFPAY ==
--- OUTSIDE RECORDS SUMMARY | 2025-07-31 06:45 | XMS_ITS ---
Author Organization [facility] PE D STEPHANIE Address [address] [place] [address] Care Team Providers Care Yarn Sorter Name Role Phone Mary Toro Primary Care Provider Jos eF Cade Unavailable [phone] Allergies Allergen (clinical drug ingredient) Drug/Non Drug Allergy documented on EMR Reaction Allergy Type Onset Date Status codeine Codeine Unknown Drug Allergy Active Reason For Referral Reason Needs Tammy CABEZAS for fatty liver... 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 STEPHANIE [address] [place] [phone] 07/31/2025 Jose F Cade Metabolic dysfunction-associated steatohepatitis [...] F Cade, 09/25/2025 10:45:00 AM, [address] [facility] [address] [facility], [address], [place], [address], Progress Notes * Francia PUENTESDOB:1970 (55 yo F)Acc No.[id number]:07/31/2025 Progress Notes Patient: Luis Miguel DARLINSaji Francia J Provider: Tasha Cade MD :1970 A ge:55 Y S ex:Female Date:07/31/2025 Address:[address] [place] [address], [id number] Pcp:Mary Toro Subjective: * Chief Complaints: * [...] stic Procedure: [facility], [facility]. * Family History: F [...] yes. Travel outside [place]: yes, [place], [place], [facility]. 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 * Medications: T aking Naproxen 250 [...] Date: 09/30/2024 Generated for Beverleyi torres/Jus/eTransmitting on: 10/22/2024 09:21 AM EST History and Physical Notes * [...]
--- NOTE | 2025-08-21 09:15 | XR_ITS ---
FINAL REPORT CLINICAL HISTORY: right ankle fx COMPARISON: 07/27/2025 FINDINGS: RIGHT ANKLE 3 views of the right ankle demonstrate no interval change in distal fibular fracture. There has been no significant increase of callus formation. Small calcifications are seen adjacent to the medial malleolus which are unchanged and likely chronic. There is persistent, diffuse soft tissue edema. IMPRESSION: No significant interval change in distal fibular fracture. Reviewed, Interpreted and Dictated by Oneyda Gonzalez MD Transcribed by Sheila Mcclellan Authenticated and . [facility]
== END 2025-08-21 23:59 ==
LOC: RAD 09:13
PROVIDERS: PCP Internal Medicine Adolescent Medicine; Visit Provider Physician Assistant Surgical
DX: S82.401D Unspecified fracture of shaft of right fibula, subsequent encounter for closed fracture with routine healing (principal); X58.XXXD Exposure to other specified factors, subsequent encounter
CPT/HCPCS: 73610

== ENCOUNTER 2025-09-12 09:56 | Outpatient (CLI) | payer BC, SELFPAY ==
--- OUTSIDE RECORDS SUMMARY | 2024-12-06 03:00 | XMS_ITS ---
Author Organization [facility] Address [address] [place], [place] [address] Care Team Providers Care Body Joiner Name Role Phone Mary Toro Primary Care Provider REASON FOR VISIT Labs Encounters Encounter Location Date Provider Diagnosis [facility] [address] [place], [place] [address] 12/06/2024 Mary Toro Plan Of Treatment Next Appt Details Provider Name:Jose F Cade, 09/25/2025 10:45:00 AM, [address], [place], [place], [address], Progress Notes * Francia PUENTESDOB:1970 (55 yo F)Acc No.[id number]:12/06/2024 LABS Patient: Luis Miguel Francia JEFFRIES Provider: DEMARCUS Castano :1970 A ge:54 Y S ex:Female Date:12/06/2024 Address:[address] [id number] Subjective: * Chief Complaints: * 1 . Labs. * Medical History: Objective: * Vitals: Assessment: Plan: * Treatment: * * Electronic signature of Jessica Toro APRN on 09/12/2025 at 10:04 AM EST Sign off status: Pending * Provider: DEMARCUS Castano Date: 0 12/06/2024 Generated for Megha macdonald/Jus/Valentino on: 1 11/13/2024 10:04 AM EST
--- OUTSIDE RECORDS SUMMARY | 2024-12-24 16:30 | XMS_ITS ---
Author Organization [facility] Address [address] [place] [address] Care Team Providers Care Tool Design Drafter Name Role Phone Mary Toro Primary Care Provider Migration, Provider Unavailable Unavailable Allergies Allergen (clinical drug ingredient) Drug/Non Drug Allergy documented on EMR Reaction Allergy Type Onset Date Status codeine Codeine Unknown Drug Allergy Active [facility] V[facility] Encounter Medications Medication SIG (Take, Route, [...] Active Encounters Encounter Location Date [facility] [address] [place] [address] 12/24/2024 Provider Migration Situational mixed anxiety and [...] Next Appt Details Provider Name:Jose F Silvahair, 09/25/2025 10:45:00 AM, [address] [facility] [address] [facility], [address], [place], [address], Progress Notes * Francia PUENTESDOB:1970 (55 yo F)Acc No.[id number]:12/24/2024 Patient: Francia MARTINEZ Provider: Rebeca braswell Migration :1970 A ge:54 Y S ex:Female Date:12/24/2024 Address:[address] [place], [place] [id number] Pcp:Mary Toro Subjective: * Chief Complaints: * [...] Electronic signature of Pipo howard Migration on 09/12/2025 at 10:05 AM EST Sign off status: Pending * Provider: Rebeca braswell Migration Date: 0 12/24/2024 Generated for Megha macdonald/Jus/Valentino on: 11/13/2024 10:05 AM EST
--- OUTSIDE RECORDS SUMMARY | 2025-07-05 06:15 | XMS_ITS ---
Author Organization [facility] Address [address] [facility] [address] [facility] [address] [place], [place] [address] Care Team Providers Care Rougher Machine Operator Name Role Phone Mary Toro Primary Care Provider Jose F Cade Unavailable [phone] REASON FOR VISIT feet swelling, other issues Encounters Encounter Location Date Provider Diagnosis [facility] [address] [place], [place] [address] 07/05/2025 Jose F Cade Plan Of Treatment Next Appt Details Provider Name:Jose F Cade, 09/25/2025 10:45:00 AM, [address], [address], [place], [place], [address], Progress Notes * Francia PUENTESDOB:1970 (55 yo [...] signature of Derrick Cade MD FAAP on 09/12/2025 at 10:04 AM EST Sign off status: Pending * Provider: Tasha Cade MD Date: 1 Generated for Megha macdonald/Jus/Valentino on: 1 11/13/2024 10:04 AM EST
--- OUTSIDE RECORDS SUMMARY | 2025-07-17 11:00 | XMS_ITS ---
Author Organization Located within [facility] D STEPHANIE Address [address] [place] [address] Care Team Providers Care Golf Club Head Inspector And Adjuster Name Role Phone Mary Toro Primary Care Provider Jose F Cade [phone] Allergies Allergen (clinical drug ingredient) Drug/Non Drug Allergy documented on EMR Reaction Allergy Type Onset Date Status codeine Codeine Unknown Drug Allergy Active Results Component Value Reference Range Notes COMPREHENSIVE METABOLIC PANE L (65282) Reviewed date:07/19/2025 10:08:14 AM Interpretation: Performing Lab:TIAN, [facility] Wajq2333 [facility], [facility] HealthAblpMH[address] Anderson Gonzalez Notes/Report: NON-FASTING; NON-FASTING; NON-FASTING; NON-FASTING [...] Reviewed date:07/19/2025 10:07:29 AM Interpretation: Performing Lab:TIAN, Cartela AB-Promisec Qekw6476 Nova[employer]atetribr, [employer] CorporationLlnxTG[address] Anderson Gonzalez Notes/Report: NON-FASTING; NON-FASTING; NON-FASTING; NON-FASTING MAGNESIUM 2.1 1.5-2.5 mg/dL CBC (INCLUDES DIFF/PLT) (639 9) Reviewed date:07/19/2025 10:07:35 AM Interpretation: Performing Lab:TIAN Cartela [facility]-Promisec Ujys4508 Novaforatel No Paper Just Vapor, [employer] Wireless CorporationAskzAE[address] Anderson Gonzalez Notes/Report: NON-FASTING; NON-FASTING; NON-FASTING; NON-FASTING [...] RDW 12.8 11.0-15.0 % ABSOLUTE NEUTROPHILS 4665 7996-3827 cells/uL ABSOLUTE LYMPHOCYTES 1169 488-4451 cells/uL ABSOLUTE MONOCYTES 738 200-950 cells/uL ABSOLUTE EOSINOPHILS 270 15-500 cells/uL ABSOLUTE BASOPHILS 71 0-200 cells/uL NEUTROPHILS 65.7 LYMPHOCYTES 19.1 MONOCYTES 10.4 EOSINOPHILS 3.8 BASOPHILS 1.0 PLATELET COUNT TNP TEST(S) NOT PERFORMED: PLATELET COUNT Unable to report due to significant platelet clumping. PLATELET ESTIMATION ADEQUATE Platelet s clumped, appear adequate. HEMOGLOBIN A1c (496) Reviewed date:07/19/2025 10:07:18 AM Interpretation: Performing Lab:TIAN Cartela [facility]c Aust1355 Novafor[address]el [facility], House BiyjGJ[address] Anderson Gonzalez Notes/Report: NON-FASTING; NON-FASTING; NON-FASTING; NON-FASTING [...] children. B TYPE NATRIURETIC PEPTIDE ( BNP) (40252) Reviewed date:07/19/2025 10:08:20 AM Interpretation: Performing Lab:TIAN [facility] Xvda6148 Nova[employer]el [facility], Wel[facility] HealthZrsmHE[address] Anderson Gonzalez Notes/Report: NON-FASTING B TYPE NATRIURETIC PEPTIDE (BNP) 104 <100 pg/mL BNP levels increase with age in the general population with the highest values seen in individuals greater than 75 years of age. Reference: J. Am. Shun. Cardiol. 2002; 40:976-982. TESTOSTERONE, [place], MS (159 83) Reviewed date:07/21/2025 12:02:01 PM Interpretation: Performing Lab:Lauro Acetylon PharmaceuticalsFusion-ZjrCofrbe[address] [address], [address], OxzzllraboDK[address] Tami Le MD,PhD Notes/Report: NON-FASTING; NON-FASTING; NON-FASTING; NON-FASTING TESTOSTERONE, TOTAL, MS 73 2-45 ng/dL For additional information, please refer to https://education.[employer].M. [employer] [place]/faq/TotalTestos teroneLCMSMS (This link is being provided for informational/educational purposes only.) (Note) This test was developed and its analytical performance characteristics have been determined by [employer]. It has not been cleared or approved by the FDA. This assay has been validated pursuant to the CLIA regulations and is used for clinical purposes. MDF med fusion [address] [facility] [address] [facility] [address] Tami Le MD, PhD CT Scan : Chest, Without Con trast Reviewed date:07/21/2025 05:47:47 PM Interpretation: Performing Lab: Notes/Report: Reason For Referral Reason Echocardiogram and C T scan of chest-dyspnea with no gallop rhythm Diagnosis 1 Shortness of breath (R06.02) Referral Organization [facility] PED STEPHANIE Referring Provider First Name Jose F Referring Provider Last Name Alyssia Referring Provider Speciality Internal M edicine Referred Organization [facility] Referred Address [address] [facility], [place], [place],[address], Referred Provider Specialty Diagnostic R adiology General Notes Rosa Malcolm 2024 09:22:08 AM >sent to [facility] approved and marked urgent Referral Priority [...] Status Risk Notes Problem Gastroesophageal reflux disease (878308383) GERD without esophagitis (K21.9) Active confirmed Vital Signs Temperature 98.0 degrees Fahrenheit 07/17/20 25 Blood pressure systolic 156 mm Hg 07/17/20 25 Blood pressure diastolic 84 mm Hg 025 Heart Rate 92 /min 07/17/2025 Height 62.5 in 07/17/2025 Weight 299 lbs 07/17/2025 BMI 53.81 kg/m2 07/17/2025 Encounters Encounter Location Date Provider Diagnosis [facility] PED STEPHANIE [address] [place] [address] 07/17/2025 Jose F Cade Prediabetes R73.03 ; [...] ordered. Greater than 30 minutes spent in hcws-zq-icxs patient contact Plan Of Treatment Medication Medication [...] PA and Lateral 07/17/2025 TESTOSTERONE, TOTAL, MS (15070E6) 2024 Referrals Referral Date Details 07/17/2025 07/17/2025, Echocard iogram and CT scan of chest-dyspnea with no gallop rhythm, [address], [place], [address], Next Appt Details Follow Up: prn, Reason: Provider Name:Jose F Cade, 09/25/2025 10:45:00 AM, [address], [address], [place], [address], Progress Notes * Francia PUENTESDOB:1970 (55 yo F)Acc No.[id number]:07/17/2025 Progress Notes Patient: Luis Miguel Francia JEFFRIES Provider: Tasha Cade MD :1970 A ge:55 Y S ex:Female Date:07/17/2025 Address:[address] [place], [place] [id number] Pcp:Mary Toro Subjective: * Chief Complaints: * [...] . * [facility]ic [facility]. * Family History: F ather: alive, diabetes, type II. M other: , hypertension, arthritis, [place]. P aternal Grand Father: . P aternal [...] yes. Travel outside [place]: yes, [place], [place], [facility]. 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 * Medications: T aking Naproxen 250 [...] *Please review and pick correct strength-formulation from Consumer Physicsspan options. If intended option is not shown, [...] 10:07 AM EDT ?LAB: CBC (INCLUDES DIFF/PLT) (7206)* Value Reference Range W NAVJOT BLOOD CELL [...] - % * A BSOLUTE NEUTROPHILS 4665 6835-9966 - cells/uL * L YMPHOCYTES 19.1 - % * A BSOLUTE LYMPHOCYTES 0394 110-8198 - cells/uL * M ONOCYTES 10.4 - [...] EDT ?LAB: B TYPE NATRIURETIC PEPTIDE (BNP) (28601)* Value Reference Range B TYPE NATRIURETIC 104 H <100 - pg/mL * This lab was reviewed by Rishi Malcolm on 07/19/2025 at 10:08 AM EDT ?LAB: TESTOSTERONE, [place], MS (45796S3) Notes: A1c previously 5.8%. Will redo this. Check metabolic studies as noted??2.?Weight gain?LAB: COMPREHENSIVE METABOLIC PANEL (01975)* Value Reference Range G LUCOSE 88 65-99 [...] mg/dL * This lab was reviewed by Rsihi Malcolm on 07/19/2025 at 10:07 AM EDT ?LAB: CBC (INCLUDES DIFF/PLT) (1816)* Value Reference Range W NAVJOT BLOOD CELL [...] - % * A BSOLUTE NEUTROPHILS 4665 3622-3410 - cells/uL * L YMPHOCYTES 19.1 - % * A BSOLUTE LYMPHOCYTES 6678 800-6040 - cells/uL * M ONOCYTES 10.4 - [...] EDT ?LAB: B TYPE NATRIURETIC PEPTIDE (BNP) (48957)* Value Reference Range B TYPE NATRIURETIC 104 H <100 - pg/mL * This lab was reviewed by Rishi Malcolm on 07/19/2025 at 10:08 AM EDT ?LAB: TESTOSTERONE, [place], MS (00030N1) Notes: Check labs. Echocardiogram and CT scan to make sure were not dealing with new onset heart failure given the sudden changes in her exertion and the new gallop rhythm?? 3.?Shortness of breath?LAB: COMPREHENSIVE METABOLIC PANEL (85975)* Value Reference Range G LUCOSE 88 65-99 [...] - % * A BSOLUTE NEUTROPHILS 4665 8239-7247 - cells/uL * L YMPHOCYTES 19.1 - % * A BSOLUTE LYMPHOCYTES 2821 867-5240 - cells/uL * M ONOCYTES 10.4 - [...] EDT ?LAB: B TYPE NATRIURETIC PEPTIDE (BNP) (38720)* Value Reference Range B TYPE NATRIURETIC 104 H <100 - pg/mL * This lab was reviewed by Rishi Malcolm on 07/19/2025 at 10:08 AM EDT ?LAB: TESTOSTERONE, T[place], MS (19385A1) ?Imaging: CT Scan : Chest, Without Contrast* Rosa Mae 07/18/20 09:11:33 AM EDT > Jose Luis [id number]/--WhPriyank escamilla R 07/21/2025 03:28:57 PM EDT >This [...] ordered. Greater than 30 minutes spent in smhc-fw-semt patient contact?? * Immunizations: FLUCELVAX : 0.5 mL (Route: Intramuscular) given by RAND Conner on Left Deltoid * Labs: * L ab: TESTOSTERONE, [place], MS (01578) Value Reference Range T ESTOSTERONE, TOTAL, MS 73 H 2-45 - ng/dL * eclKilimanjaro Energy, support 06/22 09:25:07 : This order was created by the Interface.This lab was reviewed by Melva Cheney on 07/21/2025 at 12:02 PM EDT * Procedure Codes: 9 0661 FLUCELVAX, [address] immunization administration through 18 years of age via any route of administration. * Follow Up: p rn * * Sign off status: Completed true * Provider: Tasha Cade MD Date: Generated for Megha macdonald/Jus/Deliasmitting on: 1 11/13/2024 10:04 AM EST History and Physical Notes * [...]
--- OUTSIDE RECORDS SUMMARY | 2025-07-18 15:08 | XMS_ITS ---
Author Organization [facility] Address [address] [facility] [address] [place], [place] [address] Care Team Providers Care Analytics Associate Name Role Phone Muna, Mary Primary Care Provider Medications Medication SIG (Take, Route, Fr equency, Duration) Notes Start Date End Date Status Wegovy 0.25 MG/0.5ML 0.5 mL Subcutaneous weekly; Duration: 30 days 07/18/2025 Active Problems Problem Type SNOMED Code ICD Code Onset Dates Problem Status W/U Status Risk Notes Problem PORTER - Nonalcoholic steatohepatitis (888814081) Metabolic dysfunction-associ ated steatohepatitis (MASH) (K75.81) Active confirmed Problem Type 2 diabetes mellitus with other specified complication (E11.69) Active confirmed Problem Morbid obesity (disorder) (235758963) Morbid (severe) obesity due to excess calories (E66.01) Active confirmed Encounters Encounter Location Date Provider Diagnosis [facility] [address] [facility] [address] [place], [place] [address] 07/18/2025 Mary Toro Metabolic dysfunction-associated steatohepatitis (MASH) [...] F Cade, 09/25/2025 10:45:00 AM, [address] [place] [facility] [address] [facility], [address], [place], [address], Progress Notes * Francia PUENTESDOB:1970 (55 yo F)Acc No.[id number]:07/18/2025 Patient: Francia MARTINEZ :1970 A ge:55 Y S ex:Female Address:[address] [place] [address] * Refills Start Wegovy Solution Auto-injector, 0.25 [...] * true * Date: Generated for Megha macdonald/Jus/eTransmitting on: 11/13/2024 10:04 AM EST
--- OUTSIDE RECORDS SUMMARY | 2025-07-19 05:08 | XMS_ITS ---
Author Organization [facility] Address [address] [facility] [address] [place] [address] Care Team Providers Care Head Athletic Trainer Name Role Phone Mary Toro Primary Care Provider Jose F Cade [phone] Results Component Value Reference Range Notes Ultrasound : Liver Reviewed date:07/24/2025 07:57:54 PM Interpretation: Performing Lab: Notes/Report: REASON FOR VISIT liver us order Encounters Encounter Location Date Provider Diagnosis [facility] [address] [facility] [address] [place], [place] [address] 07/19/2025 Jose F Beshair Elevated liver enzymes R74.8 Assessments Encounter Date Diagnosis (ICD Code) Assessment Notes Treatment Notes Treatment Clinical Notes Section Notes 07/19/2025 Elevated liver enzymes (ICD-10 - R74.8) Plan Of Treatment Next Appt Details Provider Name:Jose F Cade, 09/25/2025 10:45:00 AM, [address] [facility], [address], [place], [address], Progress Notes * Francia PUENTESDOB:1970 (55 yo F)Acc No.[id number]:07/19/2025 Patient: Francia MARTINEZ :1970 A ge:55 Y S ex:Female Address:[address], [place] [address] Subjective: * Chief Complaints: * L iver us order * Medical History: * Surgical History: * Hospitalization/Major Diagno stic Procedure: * Medications: Objective: * Vitals: * Physical Examination: Assessment: * Assessment: 1. E levated liver enzymes - R74.8 Plan: * Treatment: * * Procedure Codes: * true * Date: Generated for Megha macdonald/Jus/Deliasmitting on: 11/13/2024 10:04 AM EST
--- OUTSIDE RECORDS SUMMARY | 2025-07-31 06:45 | XMS_ITS ---
Author Organization [facility] PE D STEPHANIE Address [address] [place] [address] Care Team Providers Care Building Services Engineer Name Role Phone Mary Toro Primary Care Provider Jose F Cade Unavailable [phone] Allergies Allergen (clinical drug ingredient) Drug/Non Drug Allergy documented on EMR Reaction Allergy Type Onset Date Status codeine Codeine Unknown Drug Allergy Active Reason For Referral Reason Needs Tammy CABEZAS for fatty liver... 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) Referral Organization [facility] TRAM STEPHANIE Referring Provider First Name Jose F Referring Provider Last Name Alyssia Referring Provider Speciality Internal M edicine General Notes Hiral Freitas 06/2025 01:09:05 PM > done Referral Priority Urgent REASON FOR VISIT 2 Week F/U on Labs Medications Medication SIG (Take, Route, Fr equency, Duration) Notes Start Date End Date Status Aspirin 81 81 MG 1 tablet Orally Once a day Active Gas Relief 80 MG 1 tablet after meals and at bedtime as needed Orally Four times a day Active Omeprazole 20 MG 1 capsule 1/2 to 1 h our before morning meal Orally Once a day; Duration: 90 days 07/17/2025 Active Famotidine 20 MG 1 tab(s) orally at bedtime Active Wegovy 0.25 MG/0.5ML 0.5 mL Subcutaneous weekly; Duration: 30 days 07/18/2025 Active Naproxen 250 MG 1 tablet with food o r milk as needed Orally every 12 hrs Activ e Social History Tobacco Use: Social History Observation Description Date Details (start date - stop date) Current Smoker NA - NA Smoking: Question Answer Notes Are you a: current smoker How often do you smoke cigarettes? every day How many cigarettes a day do you smoke? 08-10 Vital Signs Temperature 98.4 degrees Fahrenheit 07/31/20 25 Blood pressure systolic 168 mm Hg 07/31/20 25 Blood pressure diastolic 82 mm Hg 025 Heart Rate 80 /min 07/31/2025 Height 62.5 in 07/31/2025 Weight 293 lbs 07/31/2025 BMI 52.73 kg/m2 07/31/2025 Encounters Encounter Location Date Provider Diagnosis [facility] STEPHANIE [address] [place] [id number] 07/31/2025 Jose F Cade Metabolic dysfunction-associated steatohepatitis (MASH) K75.81 ; Type 2 diabetes mellitus with other specified complication E11.69 ; Morbid (severe) obesity due to excess calories E66.01 and Situational mixed anxiety and depressive disorder F43.23 Assessments Encounter Date Diagnosis (ICD Code) Assessment Notes Treatment Notes Treatment Clinical Notes Section Notes 07/31/2025 Metabolic dysfunction-associa nuria steatohepatitis (MASH) (ICD-10 - K75.81) Patient has definitive fatty liver/MASH based on ultrasound and lab criteria. Needs semaglutide. We will try to get this preauthorized NANCY, she is already doing a great job of losing weight, discussed that she is to eliminate alcohol completely from her diet 07/31/2025 Type 2 diabetes mellitus with other specified complication (ICD-10 - E11.69) A1c 6.2%. Would also benefit from semaglutide 07/31/2025 Morbid (severe) obesity due to excess calories (ICD-10 - E66.01) See notes above about semaglutide 07/31/2025 Situational mixed anxiety and depressive disorder (ICD-10 - F43.23) Overall brighter, thinks being at home with her leg fractures helped her, we discussed limiting alcohol, we will see her at the last week of August Plan Of Treatment Treatment Notes Assessment Notes Metabolic dysfunction-associ ated steatohepatitis (MASH) Patient has definitive fatty liver/MASH based on ultrasound and lab criteria. Needs semaglutide. We will try to get this preauthorized NANCY, she is already doing a great job of losing weight, discussed that she is to eliminate alcohol completely from her diet Type 2 diabetes mellitus wit h other specified complication A1c 6.2%. Would also benefit from semaglutide Morbid (severe) obesity due to excess calories See notes above about semaglutide Situational mixed anxiety an d depressive disorder Overall brighter, thinks being at home with her leg fractures helped her, we discussed limiting alcohol, we will see her at the last week of August Referrals Referral Date Details 07/31/2025 07/31/2025, Needs We argenis CABEZAS for fatty liver... thanks Next Appt Details Follow Up: 6 Weeks, Reason: Provider Name:Jose F Cade, 09/25/2025 10:45:00 AM, [address] [facility] [address], [address], [place], [address], Progress Notes * Francia PUENTESDOB:1970 (55 yo F)Acc No.[id number]:07/31/2025 Progress Notes Patient: Luis Miguel DARLINSaji Francia J Provider: Tasha Cade MD :1970 A ge:55 Y S ex:Female Date:07/31/2025 Address:[address] [place] [address], [id number] Pcp:Mary Toro Subjective: * Chief Complaints: * 1 . 2 Week F/U on Labs. * HPI: g en: Presents to follow-up recent labs, x-rays, liver workup, excetra. It turned out that her fall that she came to see me for had caused a right sided fibula fracture. She has seen orthopedics, they have her in a boot, pain is much better managed. We started Wegovy for her fatty liver. Not been approved yet. See notes about labs below. However has been drinking water and reducing alcohol intake and has lost 6 pounds. * Medical History: A nxiety, Chronic thrombocytopenia, seen by hematology 2013, Obesity, Tobacco use. * Surgical History: c -section x 2 . * Hospitalization/Major Diagno stic Procedure: [facility], [facility]. * Family History: F [...] yes. Travel outside [place]: yes, [place], [place], [facility]. 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 * Medications: T aking Naproxen 250 [...] Tablet 1 tab(s) orally at bedtime , Taking Omeprazole 20 MG Capsule Delayed Release 1 capsule 1/2 to 1 hour before morning meal Orally Once a day , Taking Wegovy 0.25 MG/0.5ML Solution Auto- injector 0.5 mL Subcutaneous weekly , Medication List reviewed and reconciled with the patient * Allergies: C odeine. Objective: * Vitals: N urse: KJ, Pain: 5, Temp: 98.4, RR: 18, HR: 80, BP: 168/82, Ht: 62.5, Wt: 293, BMI:52.73. * Examination: G eneral Examination: P atient is pleasant, smiles, appears much brighter, not tearful. Wearing boot, vital signs unremarkable. Assessment: * Assessment: 1. M etabolic dysfunction-associated steatohepatitis (MASH) - K75.81 (Primary) 2 . T ype 2 diabetes mellitus with other specified complication - E11.69 3 .?Morbid (severe) obesity due to excess calories - E66.01 4 . S ituational mixed anxiety and depressive disorder - F43.23 Plan: * Treatment: 2. T ype 2 diabetes mellitus with other specified complication Notes: A1c 6.2%. Would also benefit from semaglutide 3. M orbid (severe) obesity due to excess calories Notes: See notes above about semaglutide 4. S ituational mixed anxiety and depressive disorder Notes: Overall brighter, thinks being at home with her leg fractures helped her, we discussed limiting alcohol, we will see her at the last week of August * Follow Up: 6 Weeks * * Sign off status: Completed true * Provider: Tasha Cade MD Date: 09/30/2024 Generated for Beverleyi torres/Jus/eTransmitting on: 11/13/2024 10:05 AM EST History and Physical Notes * HPI (History of Present Illness) Category Sub-Category Detail Notes Category Not es gen Presents to follow-up recent labs, x-rays, liver workup, excetra. It turned out that her fall that she came to see me for had caused a right sided fibula fracture. She has seen orthopedics, they have her in a boot, pain is much better managed. We started Wegovy for her fatty liver. Not been approved yet. See notes about labs below. However has been drinking water and reducing alcohol intake and has lost 6 pounds Examination Category Sub-Category Detail Notes Category Not es General Examination Patient is pleasant, smiles, appears much brighter, not tearful. Wearing boot, vital signs unremarkable Consultation Request Notes Referral Date Referring Provider Referred Provider Not srinivasa 07/31/2025 Jose F Cade , Needs Julián CABEZAS for fatty liver... thanks
--- NOTE | 2025-09-12 10:04 | XR_ITS ---
FINAL REPORT CLINICAL HISTORY: right ankle fx FROM JUNE 2025 COMPARISON: 08/21/2025 FINDINGS: RIGHT ANKLE Three views were obtained. There is a healing oblique fracture of the distal fibular shaft. Mild displacement is stable. The ankle mortise is intact. There is an old avulsion fracture of the medial malleolus tip. IMPRESSION: Partial healing of distal fibular shaft fracture. Reviewed, Interpreted and Dictated by Gayathri aBer MD Transcribed by Brenda Mendosa Authenticated and [facility]
--- OUTSIDE RECORDS SUMMARY | 2025-09-12 10:04 | XMS_ITS | Patient Health Record ---
[facility] Organization [facility] Address [address] [place] [address] Care Team Providers Care Medical Grade Shoemaker Name Role Phone Mary Toro Primary Care Provider Jose F Cade Unavailable [phone] Migration, Provider Unavailable Unavailable Allergies Allergen (clinical drug ingredient) Drug/Non Drug Allergy documented on EMR Reaction Allergy Type Onset Date Status codeine Codeine Unknown Drug Allergy Active Results Component Value Reference Range Notes TESTOSTERONE, TOTAL, MS (159 83) Reviewed date:07/21/2025 12:02:01 PM Interpretation: Performing Lab:[facility] [address], [address] HospitalZjsgcwpatdFP[address] Tami Le MD,PhD Notes/Report: NON-FASTING; NON-FASTING; NON-FASTING; NON-FASTING TESTOSTERONE, TOTAL, MS 73 2-45 ng/dL This test was developed and its analytical performance characteristics have been determined by [employer]. It has not been cleared or approved by the FDA. This assay has been validated pursuant to the CLIA regulations and is used for clinical purposes. [facility] [address] [address],[address] [facility] [address] Tami Le MD, PhD For additional information, please refer to https://education.[employer].Transparentrees/faq/Total TestosteroneLCMSMS (This link is being provided for informational/educationa l purposes only.) (Note) HEPATITIS PANEL, GENERAL (64 62) Reviewed date:12/09/2024 10:47:25 AM Interpretation: Performing Lab:TIAN, [facility] [address], [place] YiefQG[address] [place] Notes/Report: NON-FASTING; NON-FASTING; NON-FASTING; NON-FASTING; NON-FAST FASTING:YES FASTING: YES HEPATITIS A AB, TOTAL REACTIVE NON-REACTIVE For additional information, please refer to http://[employer]/faq/DJV183 (This link is being provided for informational/ educational purposes only.) HEPATITIS B SURFACE ANTIBODY QL NON-REACTIVE NON-REACTIVE HEPATITIS B SURFACE ANTIGEN NON-REACTIVE NON-REACTIVE For additional information, please refer to http://[employer]/faq/TCK290 (This link is being provided for informational/ educational purposes only.) HEPATITIS B CORE AB TOTAL NON-REACTIVE NON-REACTIVE For additional information, please refer to http://[employer]/faq/YEN964 (This link is being provided for informational/ educational purposes only.) HEPATITIS C ANTIBODY NON-REACTIVE NON-REACTIVE HCV antibody was non-reactive. There is no laboratory evidence of HCV infection. In most cases, no further action is required. However, if recent HCV exposure is suspected, a test for HCV RNA (test code 85812) is suggested. For additional information please refer to http://[employer]/faq/FAQ22v 1 (This link is being provided for informational/ educational purposes only.) TEST AUTHORIZATION Reviewed date:12/08/2024 08:00:55 AM Interpretation: Performing Lab:TIAN, [facility] [address] [facility], ResoServPqvvCS[address] Anderson Gonzalez Notes/Report: NON-FASTING; NON-FASTING; NON-FASTING; NON-FASTING; NON-FAST FASTING:YES FASTING: YES TEST NAME: HEPATITIS PANEL, GENERAL TEST CODE: [id number] CLIENT CONTACT: KEREN EATON IOP REPORT ALWAYS MESSAGE SIGNATURE The laboratory testing on this patient was verbally requested or confirmed by the ordering physician or his or her authorized veterans contact representative after contact with an employee of [employer]. Federal regulations require that we maintain on file written authorization for all laboratory testing. Accordingly we are asking that the ordering physician or his or her authorized veterans contact representative sign a copy of this report and promptly return it to the client integration manager. Signature: COMMENT Please fax this signed form to [phone]. Please do not attempt to return this document by other methods. Documents will not be viewed by a veterans contact representative. Please do not use this fax number for other service requests. Ultrasound : Liver Reviewed date:07/24/2025 07:57:54 PM Interpretation: Performing Lab: Notes/Report: CT Scan : Chest, Without Con trast Reviewed date:07/21/2025 05:47:47 PM Interpretation: Performing Lab: Notes/Report: B TYPE NATRIURETIC PEPTIDE ( BNP) (31279) Reviewed date:07/19/2025 10:08:20 AM Interpretation: Performing Lab:TIAN [facility] [address], [place] RamEdyiFM[address] [place] Gonzalez Notes/Report: NON-FASTING B TYPE NATRIURETIC PEPTIDE (BNP) 104 <100 pg/mL BNP levels increase with age in the general population with the highest values seen in individuals greater than 75 years of age. Reference: J. Am. Shun. Cardiol. 2002; 40:976-982. HEMOGLOBIN A1c (496) Reviewed date:07/19/2025 10:07:18 AM Interpretation: Performing Lab:TIAN [employer] [address] [employer] [address] ChandlerL[address] [place] Notes/Report: NON-FASTING; NON-FASTING; NON-FASTING; NON-FASTING [...] A1c for diagnosis of diabetes for children. CBC (INCLUDES DIFF/PLT) (639 9) Reviewed date:07/19/2025 10:07:35 AM Interpretation: Performing Lab:TIAN [employer] [facility], [facility] MinneapolisWnrsVU[address] [place] Gonzalez Notes/Report: NON-FASTING; NON-FASTING; NON-FASTING; NON-FASTING [...] RDW 12.8 11.0-15.0 % ABSOLUTE NEUTROPHILS 4665 0273-2805 cells/uL ABSOLUTE LYMPHOCYTES 6065 210-8983 cells/uL ABSOLUTE MONOCYTES 738 200-950 cells/uL ABSOLUTE EOSINOPHILS 270 15-500 cells/uL ABSOLUTE BASOPHILS 71 0-200 cells/uL NEUTROPHILS 65.7 LYMPHOCYTES 19.1 MONOCYTES 10.4 EOSINOPHILS 3.8 BASOPHILS 1.0 PLATELET COUNT TNP TEST(S) NOT PERFORMED: PLATELET COUNT Unable to report due to significant platelet clumping. PLATELET ESTIMATION ADEQUATE Platelet s clumped, appear adequate. MAGNESIUM (622) Reviewed date:07/19/2025 10:07:29 AM Interpretation: Performing Lab:TIAN [employer] [employer], [place] WjtuFS[address] Anderson Gonzalez Notes/Report: NON-FASTING; NON-FASTING; NON-FASTING; NON-FASTING MAGNESIUM 2.1 1.5-2.5 mg/dL COMPREHENSIVE METABOLIC PANE L (28191) Reviewed date:07/19/2025 10:08:14 AM Interpretation: Performing Lab:TIAN [employer] [facility], [facility] MinneapolisQzaeYD[address] Anderson Gonzalez Notes/Report: NON-FASTING; NON-FASTING; NON-FASTING; NON-FASTING [...] 134 10-35 U/L ALT 95 6-29 U/L Mammogram: Screening Reviewed date:01/20/2025 10:23:15 AM Interpretation: Performing Lab: Notes/Report: CT Scan : Chest, Lung Cancer Screening Reviewed date:01/17/2025 09:14:22 AM Interpretation: Performing Lab: Notes/Report: CT Scan : Chest, Lung Cancer Screening Reviewed date:01/17/2025 09:14:22 AM Interpretation: Performing Lab: Notes/Report: VITAMIN D,25-OH,TOTAL,IA (17 306) Reviewed date:12/09/2024 10:47:26 AM Interpretation: Performing Lab:CB, [facility], [facility] MinneapolisVgyfCE[address] Anderson Gonzalez Notes/Report: NON-FASTING; NON-FASTING; NON-FASTING; NON-FASTING; [...] D, (D2,D3), LC/MS/MS is recommended: order code 33690 (patients >2yrs). See Note 1 Note 1 For additional information, please refer to http://education.SomaLogic/faq/OCT527 (This link is being provided for informational/ educational purposes only.) TSH W/REFLEX TO FT4 (19343) Reviewed date:12/09/2024 10:47:26 AM Interpretation: Performing Lab:TIAN [facility], InforSenseVqjbFT[address] [place] Notes/Report: NON-FASTING; NON-FASTING; NON-FASTING; NON-FASTING; NON-FAST FASTING:YES FASTING: YES TSH W/REFLEX TO FT4 2.90 0.40-4.50 mIU/L HEMOGLOBIN A1c (496) Reviewed date:12/09/2024 10:47:26 AM Interpretation: Performing Lab:TIAN [facility], [place] [employer] MeetIiszTZ[address] [place] Gonzalez Notes/Report: NON-FASTING; NON-FASTING; NON-FASTING; NON-FASTING; [...] A1c for diagnosis of diabetes for children. CBC (INCLUDES DIFF/PLT) (639 9) Reviewed date:12/09/2024 10:47:26 AM Interpretation: Performing Lab:TIAN [facility], ResoServPidwWO[address] Anderson Gonzalez Notes/Report: NON-FASTING; NON-FASTING; NON-FASTING; NON-FASTING; [...] RDW 13.6 11.0-15.0 % ABSOLUTE NEUTROPHILS 3705 2983-2883 cells/uL ABSOLUTE LYMPHOCYTES 8126 972-3639 cells/uL ABSOLUTE MONOCYTES 525 200-950 cells/uL ABSOLUTE EOSINOPHILS 201 15-500 cells/uL ABSOLUTE BASOPHILS 59 0-200 cells/uL NEUTROPHILS 62.8 LYMPHOCYTES 23.9 MONOCYTES 8.9 EOSINOPHILS 3.4 BASOPHILS 1.0 PLATELET COUNT TNP TEST(S) NOT PERFORMED: PLATELET COUNT Unable to report due to significant platelet clumping. PLATELET ESTIMATION ADEQUATE Platelet s clumped, appear adequate. CREATINE KINASE, TOTAL (374) Reviewed date:12/09/2024 10:47:26 AM Interpretation: Performing Lab:TIAN [facility], [place] KxrbGP[address] Anderson Gonzalez Notes/Report: NON-FASTING; NON-FASTING; NON-FASTING; NON-FASTING; NON-FAST FASTING:YES FASTING: YES CREATINE KINASE, TOTAL 77 21-240 U/L MAGNESIUM (622) Reviewed date:12/09/2024 10:47:26 AM Interpretation: Performing Lab:TIAN [facility] [employer], [place] [employer] MeetJsigJN[address] Anderson Gonzalez Notes/Report: NON-FASTING; NON-FASTING; NON-FASTING; NON-FASTING; NON-FAST FASTING:YES FASTING: YES MAGNESIUM 2.2 1.5-2.5 mg/dL COMPREHENSIVE METABOLIC PANE L (24959) Reviewed date:12/09/2024 10:47:26 AM Interpretation: Performing Lab:TIAN [employer] [address] [employer], [facility] MinneapolisFhztYY[address] Anderson Gonzalez Notes/Report: NON-FASTING; NON-FASTING; NON-FASTING; NON-FASTING; [...] Reviewed date:12/09/2024 10:47:26 AM Interpretation: Performing Lab:TIAN [facility] [address] [facility], [facility] MinneapolisNadbSD[address] Anderson Gonzalez Notes/Report: NON-FASTING; NON-FASTING; NON-FASTING; NON-FASTING; [...] equation in the estimation of LDL-C. Luís HO et al. ELENA. 2013;310(19): 0341-7868 (http://education.[employer] Entertainment/faq/FAQ16 4) CHOL/HDLC RATIO 3.4 <5.0 (calc) NON HDL CHOLESTEROL 158 <130 mg/dL (calc) For patients with diabetes plus 1 major ASCVD risk factor, treating to a non-HDL-C goal of <100 mg/dL (LDL-C of <70 mg/dL) is considered a therapeutic option. Reason For Referral Reason Mamm, LDCT chest Diagnosis 1 Routine medical exam (Z00.00) Referral Organization [facility] MEGHNA Referring Provider First Name Mary Referring Provider Last Name Muna Referring Provider Speciality [facility] Referred Organization [facility] Referred Address [address] [place] [phone], Referred Provider Specialty Diagnostic R adiology General Notes Rosa Malcolm 2024 09:44:59 AM >Faxed to [facility] to schedule with [facility] Referral Priority Routine Referral Appointment Date 12/23/2024 Reason Echocardiogram and C T scan of chest-dyspnea with no gallop rhythm Diagnosis 1 Shortness of breath (R06.02) Referral Organization [facility] TRAM [facility]OWN Referring Provider First Name Jose F Referring Provider Last Name Alyssia Referring Provider Speciality Internal edicine Referred Organization [facility] Referred Address [address] [place] [phone], Referred Provider Specialty Diagnostic R adiology General Notes Rosa Malcolm 2024 09:22:08 AM >sent to [facility] approved and marked urgent Referral Priority Urgent Reason Needs Tammy CABEZAS for fatty liver... 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) Referral Organization [facility] Referring Provider First Name Jose F Referring Provider Last Name Alyssia Referring Provider Speciality Internal M edicine General Notes Hiral Freitas 06/2025 01:09:05 PM > done Referral Priority Urgent Medications Medication SIG (Take, Route, Fr equency, Duration) Notes Start Date End Date Status Aspirin 81 81 MG 1 tablet Orally Once a day Active Gas Relief 80 MG 1 tablet after meals and at bedtime as needed Orally Four times a day Active Naproxen 250 MG 1 tablet with food o r milk as needed Orally every 12 hrs Activ e Omeprazole 20 MG 1 capsule 1/2 to 1 h our before morning meal Orally Once a day; Duration: 90 days 07/17/2025 Active Famotidine 20 MG 1 tab(s) orally at bedtime Active Wegovy 0.25 MG/0.5ML 0.5 mL Subcutaneous weekly; Duration: 30 days 07/18/2025 Active Immunizations Vaccine Route Administration Date Status Commrocio estefania Adacel (Tdap) IM Intramuscular 11/05/2010 Administered [...] (E11.69) Active confirmed Problem Morbid obesity (disorder) (428573041) Morbid (severe) obesity due to excess calories (E66.01) Active confirmed Problem Tobacco use (324128929) Tobacco use (Z72.0) Active confirmed Problem Mixed anxiety and depressive disorder (498756038) Depression with anxiety (F41.8) Active confirmed Problem Body mass index 40+ - severely obese (621181203) BMI 45.0-49.9, adult (Z68.42) Active confirmed Problem Gastroesophageal reflux disease (968106834) GERD without esophagitis (K21.9) Active confirmed Problem Body mass index 40+ - morbidly obese (338772544) BMI 40.0-44.9, adult (Z68.41) Active confirmed Problem Adjustment disorder with mixed emotional features (99001758) Situational mixed anxiety and depressive disorder (F43.23) Active confirmed Problem Thrombocytopenia (770288902) Thrombocytopenia (D69.6) Active confirmed Problem Insomnia disorder related to another mental disorder (49929373) Psychophysiological insomnia (F51.04) Active confirmed Problem Reactive depression (situational) (57410334) Situational depression (F43.21) Active confirmed Problem Hyperlipidaemia (87337715) Hyperlipidemia, unspecified hyperlipidemia type (E78.5) Active confirmed Problem History of thrombocytopenia (31822037338461) History of thrombocytopenia (Z86.2) Active confirmed Problem Moderate major depression, single episode (20916868) Current moderate episode of major depressive disorder without prior episode (F32.1) Active confirmed Problem PORTER - Nonalcoholic steatohepatitis (447633103) 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) Active confirmed Vital Signs Heart Rate 80 /min 07/31/2025 Temperature 98.4 degrees Fahrenheit 07/31/2025 Blood pressure diastolic 82 mm Hg 07/31/2025 Oximetry 97 12/05/2024 Height 62.5 in 07/31/2025 Blood pressure systolic 168 mm Hg 07/31/2025 Weight 293 lbs 07/31/2025 BMI 52.73 kg/m2 07/31/2025 Encounters Encounter Location Date Provider Diagnosis [facility] [address] [place], [place] [address] 12/06/2024 [facility] [address] [facility] [address] [place], [place] [address] 12/24/2024 Provider Migration Situational mixed anxiety and depressive disorder F43.23 and Tobacco use Z72.0 [facility] [address] [facility] [address] [place] [address] 12/05/2024 Mary Toro Routine medical exam Z00.00 ; Visit for screening mammogram Z12.31 ; Personal history of tobacco use Z87.891 ; Colon cancer screening Z12.11 ; Murmur R01.1 ; Situational mixed anxiety and depressive disorder F43.23 ; Tobacco use Z72.0 ; BMI 45.0-49.9, adult Z68.42 ; Weight loss counseling, encounter for Z71.3 ; Myalgia M79.10 and SOB (shortness of breath) R06.02 [facility] [address] [facility] [address] [place] [address] 07/17/2025 Jose F Silvahair Prediabetes R73.03 ; Weight gain R63.5 ; Shortness of breath R06.02 ; Right leg pain M79.604 ; Encounter for immunization Z23 and GERD without esophagitis K21.9 [facility] [address] [place] [address] 07/31/2025 Jose F Beshair Metabolic dysfunction-associated steatohepatitis (MASH) K75.81 ; Type 2 diabetes mellitus with other specified complication E11.69 ; Morbid (severe) obesity due to excess calories E66.01 and Situational mixed anxiety and depressive disorder F43.23 [facility] [address] [place] [address] 12/08/2024 Mary Toro [facility] [address] [place] [address] 07/18/2025 Mary Toro Metabolic dysfunction-associated steatohepatitis (MASH) K75.81 ; Type 2 diabetes mellitus with other specified complication E11.69 and Morbid (severe) obesity due to excess calories E66.01 [facility] [address] [place] [address] 07/19/2025 Jose F Cade Elevated liver enzym es R74.8 [facility] [address] [address] 08/11/2025 Mary Toro Metabolic dysfunction-associated steatohepatitis (MASH) K75.81 Assessments Encounter Date Diagnosis (ICD Code) Assessment [...] specified complication (ICD-10 - E11.69) 07/18/2025 Metabolic dysfunction-associ ated steatohepatitis (MASH) (ICD-10 - K75.81) 07/19/2025 Elevated liver enzymes (ICD-10 - R74.8) 07/31/2025 Type 2 diabetes mellitus with other specified complication (ICD-10 - E11.69) A1c 6.2%. Would also benefit from semaglutide 07/31/2025 Metabolic dysfunction-associ ated steatohepatitis (MASH) (ICD-10 - K75.81) Patient has definitive fatty liver/MASH based on ultrasound and lab criteria. Needs semaglutide. We will try to get this preauthorized NANCY, she is already doing a great job of losing weight, discussed that she is to eliminate alcohol completely from her diet 08/11/2025 Metabolic dysfunction-associ ated steatohepatitis (MASH) (ICD-10 - K75.81) 07/31/2025 Morbid (severe) obesity due to excess calories (ICD-10 - E66.01) See notes above about semaglutide 07/18/2025 Morbid (severe) obesity due to excess calories (ICD-10 - E66.01) 07/17/2025 Shortness of breath (ICD-10 - R06.02) 12/05/2024 Personal history of tobacco use (ICD-10 - Z87.891) 12/05/2024 Colon cancer screening (ICD-10 - Z12.11) 07/17/2025 Right leg pain (ICD-10 - M79.604) Check x-ray 07/31/2025 Situational mixed anxiety and depressive disorder (ICD-10 - F43.23) Overall brighter, thinks being at home with her leg fractures helped her, we discussed limiting alcohol, we will see her at the last week of 07/17/2025 Encounter for immunization (ICD-10 - Z23) [...] ordered. Greater than 30 minutes spent in [id number] patient contact Plan Of Treatment Pending Test Test Name Order Date X ray : Tib/Fib, Right 07/17/2025 Echocardiogram 07/17/2025 H-URINE CULTURE 08/04/2011 C-LIPASE 08/26/2017 C-CBC 08/26/2017 C-CMP 11/15/2020 C-CMP 08/26/2017 C-LIPID PANEL 11/15/2020 C-AMYLASE 08/26/2017 C-URINE CULTURE 02/01/2015 X ray : Chest PA and Lateral 07/17/2025 TESTOSTERONE, TOTAL, MS ([id number]) 2024 Next Appt Details Provider Name:Jose F Cade, 09/25/2025 10:45:00 AM, [address], [address], [place], [address], Insurance Providers Payer Name Payer Address Payer Phone Subscriber Number Group Number Insured Name Patient Relationship to Insured Coverage Start Date Coverage End Date [facility] [address] [place] [address] [id number] Francia Mcdonald Self - patient is the insured Medical (General) History Medical History History ICD Code anxiety Chronic thrombocytopenia, seen by hemato logy 2013 Obesity Tobacco use Surgical History Surgery Date(Month/Year) x 2 Hospitalization History Reason Date(Month/Year) [facility]- Child 1997 [facility] Child 1992
== END 2025-09-12 23:59 ==
LOC: RAD 09:57
PROVIDERS: PCP Internal Medicine Adolescent Medicine; Visit Provider Student in an Organized Health Care Education/Training Program
DX: S82.401D Unspecified fracture of shaft of right fibula, subsequent encounter for closed fracture with routine healing (principal); X58.XXXD Exposure to other specified factors, subsequent encounter
CPT/HCPCS: 73610